=== PATIENT | female | born 1990 | race Caucasian/White ===

== ENCOUNTER 2022-06-06 09:40 | Inpatient (IN) | payer MEDICAID ==
[~2022-06-06] VITALS: Ht 167.7 cm; Wt 85.1 kg
[~2022-06-06 09:40] MED LIST: HYDR-91 PO; IBP800T PO; LEVO125T6 PO; LVT.1T PO; PREN1TAB14 PO
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
[2022-06-06] MEDS ORDERED: ONDANSETRON 4 MG (ZOFRAN) ORAL DISSOLVE TAB PO PRN (12:30)
[2022-06-06] MEDS ORDERED: BISACODYL 10 MG SUPP (DULCOLAX) PR PRN (12:30)
[2022-06-06] MEDS ORDERED: ENOXAPARIN 40 MG/0.4 ML (LOVENOX) SYR SC SCH (12:30)
[2022-06-06] MEDS ORDERED: CALCIUM CARBONATE 500 MG (TUMS) TAB.CHEW PO PRN (12:30)
[2022-06-06] MEDS ORDERED: guaiFENesin/CODEINE (ROBITUSSIN AC) 10ML UDC PO PRN (12:30)
[2022-06-06] MEDS ORDERED: LOPERAMIDE 2 MG (IMODIUM) TABLET PO PRN (12:30)
[2022-06-06] MEDS ORDERED: MELATONIN 3 MG TABLET PO PRN (12:30)
[2022-06-06] MEDS ORDERED: FLEET ENEMA ADULT 1 EA BTL PR PRN (12:30)
[2022-06-06] MEDS ORDERED: DOCUSATE SODIUM 100 MG (COLACE) CAP PO PRN (12:30)
[2022-06-06] MEDS ORDERED: TRAM50TA3 PO (13:36)
[2022-06-06] MEDS ORDERED: DICL75TA2 PO (13:36)
[2022-06-06] MEDS ORDERED: ACHD5005 PO (13:36)
[2022-06-06] MEDS ORDERED: APIX2.5T PO (13:36)
[2022-06-06] MEDS ORDERED: LEVO137T2 PO (13:36)
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
--- OUTSIDE RECORDS SUMMARY | 2022-06-06 16:03 | XMS REPORT ---
Author Author Alicia Oneill [facility] Address [address] [place], [place] [id number] Care Team Providers Care Inspection Machine Tender Name Role Phone Nimco Oneill PCP Nimco Oneill PreferredProvider Allergies and Adverse Reactions Name Reaction Notes morphine Vicodin Shell Fish (shrimp, crayfish, lobster, crab) Plan of Treatment Planned Activity Comments Planned Date Planned Time Plan/Goal Hepatitis C and hypothyroid 01/12/2021 12:45 PM TSH 01/28/2019 12:00 AM EKG. 06/22/2020 12:00 AM EKG. 06/29/2020 12:00 AM TSH 10/03/2021 12:00 AM Lumbar Spine 2 or 3 View - Clinic 05/30/2022 12:00 A M Fertility consult, has been attempting for more than 1yr . Medications Active Name Start Date Estimated Completion Date SIG Co mments Sprintec (28) 0.25-35 mg-mcg oral tablet 2021 07/04/19 23 take 1 tablet by oral route once daily for 84 days tramadol oral tablet 50 mg 05/02/2022 take 1 tablet (50 mg) by oral route every 6 hours as needed hydrocodone-acetaminophen oral tablet 5-325 mg 05/03/2022 take 1 tablet by oral route every 6 hours as needed for pain levothyroxine 137 mcg capsule 05/18/2022 07/17/2022 ta ke 1 capsule (137 mcg) by oral route once daily for 30 days diclofenac sodium oral tablet,delayed release (DR/EC) 75 mg 05/30 take 1 tablet (75 mg) by oral route 2 times per day Name Start Date Expiration Date SIG Comments valacyclovir 1 gram oral tablet 07/14/2014 07/21/2014 take 1 tablet (1,000 mg) by oral route 3 times per day for 7 days prednisone 10 mg oral tablet 07/14/2014 07/20/2014 connie e 60mg x1 more day, then 50mg x1 day, then 40mg x1 day, then 30mg x1 day, then 20mg x1 day, then 10mg x1 day Chantix Continuing Month Box 1 mg oral tablet 05/23/201608/21/2016 take 1 tablet (1 mg) with a glass of water by oral route 2 times per day after meals for 30 days estradiol 1 mg oral tablet 07/14/2016 07/24/2016 take 1 tablet (1 mg) by oral route once daily for 10 days Valium 5 mg oral tablet 09/18/2016 take 1 t ablet (5 mg) by oral route 2 times per day Bactrim DS 800-160 mg oral tablet 03/02/2017 take 1 tablet by oral route every 12 hours for 10 days Augmentin 875-125 mg oral tablet 03/06/2017 take 1 tablet by oral route every 12 hours for 7 days hydroxyzine pamoate 25 mg oral capsule 03/06/2017 take 1 capsule (25 mg) po at HS phentermine 37.5 mg oral tablet 03/14/2017 04/13/2017 take 1 tablet (37.5 mg) by oral route once daily before breakfast for 30 days Sprintec (28) 0.25-35 mg-mcg oral tablet 05/02/2017 TAKE 1 TABLET BY ORAL ROUTE ONCE DAILY FOR 28 DAYS azithromycin 250 mg oral tablet 12/03/2017 12/08/2017 take 2 tablets (500 mg) by oral route once daily for 1 day then 1 tablet (250 mg) by oral route once daily for 4 days levothyroxine 125 mcg oral tablet 01/28/2019 04/28/2019 take 1 tablet by oral route daily for 30 days cephalexin 500 mg oral capsule 04/09/2019 04/29/2019 t haydee 1 capsule (500 mg) by oral route every 12 hours for 10 days hydrocodone-acetaminophen 5-325 mg oral tablet 07/29/2019 take 1 tablet by oral route every 6 hours as needed for pain amoxicillin 500 mg oral capsule 09/03/2019 09/13/2019 take 1 capsule (500 mg) by oral route every 12 hours for 10 days alprazolam 0.25 mg oral tablet 12/08/2019 t haydee 1 tablet by oral route daily as needed Keflex 500 mg oral capsule 12/11/2019 12/18/2019 take 1 capsule (500 mg) by oral route every 6 hours for 7 days paroxetine HCl 40 mg oral tablet 12/19/2019 03/18/2020 take 1 tablet (40 mg) by oral route once daily for 30 days Zithromax Z-Madhav 250 mg oral tablet 04/16/2020 04/21/2020 Take 2 tablets the first day (500 mg) followed by 1 tablet (250 mg) days 2-5. for 5 days Medrol (Madhav) 4 mg oral tablets,dose pack 04/16/2020 04/22/20 take by oral route as directed per package instructions for 6 days tramadol 50 mg oral tablet 06/01/2020 take 1 tablet (50 mg) by oral route every 6 hours as needed Imitrex 50 mg oral tablet 06/07/2020 take 1 tablet (50 mg) by oral route after onset of migraine; may repeat after 2 hours if headache returns, not to exceed 200mg in 24hrs propranolol 20 mg oral tablet 06/07/2020 ta ke 1 tablet by oral route 2 times a day SUMATRIPTAN 50MG TABLETS 06/28/2020 07/25/2020 TAKE 1 TABLET(50 MG) BY MOUTH AT ONSET OF MIGRAINE. MAY REPEAT AFTER 2 HOURS IF HEADACHE RETURNS. NOT TO EXCEED 200 MG IN 24 HOURS LEVOTHYROXINE 0.150MG (150MCG) TAB 12/27/2020 03/27/2021 TAKE 1 TABLET(150 MCG) BY MOUTH EVERY DAY levothyroxine 150 mcg oral capsule 03/03/2021 06/01/2021 take 1 capsule (150 mcg) by oral route once daily for 30 days acyclovir 400 mg oral tablet 05/02/2021 06/01/2021 connie e 1 tablet (400 mg) by oral route 2 times per day for 15 days cephalexin 500 mg oral capsule 05/04/2021 05/09/2021 t haydee 1 capsule by oral route 2 times a day for 5 days Provera 10 mg oral tablet 06/21/2021 06/26/2021 take 1 tablet (10 mg) by oral route once daily for 5 days LEVOTHYROXINE 0.150MG (150MCG) TAB 11/17/2021 02/15/2022 TAKE 1 TABLET(150 MCG) BY MOUTH EVERY DAY Saxenda subcutaneous pen injector 3 mg/0.5 mL (18 mg/3 mL) 202101/12/2022 inject 0.6 mg by subcutaneous route once daily in the abdomen, thigh, or upper arm for 1 week cyclobenzaprine 5 mg tablet 01/06/2022 01/11/2022 take 1 tablet by oral route 2 times a day for 5 days phentermine oral tablet 37.5 mg 02/13/2022 03/15/2022 take 1 tablet (37.5 mg) by oral route once daily before breakfast for 30 days Discontinued Name Start Date Discontinued Date SIG Comments levothyroxine 125 mcg oral tablet 07/11/2014 take 1 tablet (125 mcg) by oral route once daily prednisone 20 mg oral tablet 11/11/2013 07/11/2014 connie e 1 tablet by mouth daily x5 days oral 03/17/2015 Zithromax 1 gram oral packet 12/02/2013 07/11/2014 connie e 1 packet (1,000 mg) by oral route dissolved in 2 ounces of water as a single dose levothyroxine 50 mcg oral tablet 07/20/2014 08/14/2014 take 1 tablet (50 mcg) by oral route once daily for 30 days risperidone oral 03/17/2015 Proctosol HC 2.5 % rectal cream 09/23/2015 05/23/2016 apply by rectal route 2 times a day Ativan 0.5 mg oral tablet 10/25/2015 10/27/2015 take 1 tablet by oral route 2 times a day as needed alprazolam 0.5 mg oral tablet 10/27/2015 09/18/2016 ta ke 1 tablet (0.5 mg) by oral route 3 times per day Depo-Provera 150 mg/mL intramuscular suspension 017 Proctosol HC 2.5 % topical cream with perineal applicator 017 09/18/2016 apply by rectal route 2 times per day Harvoni 90-400 mg oral tablet 10/20/2016 take 1 tabl et by oral route once daily completed treatment cyclobenzaprine 10 mg oral tablet 10/17/2016 01/08/2017 take 1 tablet by oral route once a day (at bedtime) tramadol 50 mg oral tablet 10/20/2016 01/08/2017 take 1 tablet (50 mg) by oral route every 6 hours as needed levothyroxine 100 mcg oral tablet 11/13/2016 01/08/2017 TAKE 1 TABLET BY MOUTH ONCE DAILY diclofenac sodium 75 mg oral tablet,delayed release (DR/EC) 11/1301/08/2017 TAKE 1 TABLET (75 MG) BY ORAL ROUTE 2 TIMES PER DAY FOR 30 DAYS Vitamin oral tablet 08/28/2017 take 1 table t by oral route once daily amoxicillin 875 mg oral tablet 07/31/2017 08/28/2017 t haydee 1 tablet (875 mg) by oral route every 12 hours for 10 days hydrochlorothiazide 12.5 mg oral tablet 10/18/2017 8 TAKE 1 TABLET (12.5 MG) BY ORAL ROUTE ONCE DAILY diclofenac sodium 75 mg oral tablet,delayed release (DR/EC) 11/1512/03/2017 take 1 tablet (75 mg) by oral route 2 times per day for 30 days cyclobenzaprine 10 mg oral tablet 11/22/2018 01/28/2019 take 1 tablet (10 mg) by oral route 3 times per day as needed cyclobenzaprine 10 mg oral tablet 04/09/2019 07/29/2019 take 1/2- 1 tablet by oral route at HS Vitamin 27 mg iron-0.8 mg tablet 06/21/19 take 1 tablet by oral route Nicorette 4 mg gum 10/21/2020 12/16/2020 chew 1 piece of gum (4 mg) by oral route every 1-2 hours as needed and as directed. FRUIT FLAVOR ONLY Fioricet 50 mg-300 mg-40 mg capsule 12/16/2020 2021 take 1 capsule by oral route every 4 hours as needed Nicorette 4 mg buccal lozenge 03/17/2021 06/21/2021 ta ke 1 tablet (4 mg) dissolved slowly in the mouth by oral route every 4-8 hours Nicoderm CQ 21 mg/24 hr transdermal patch 24 hour 03/17/2021 06/21/2021 apply 1 patch (21 mg) by transdermal route once daily and remove at bedtime for 28 days ferrous sulfate 325 mg (65 mg iron) oral tablet 03/18/2021 06/21/2021 take 1 tablet by oral route every other day levothyroxine 25 mcg oral capsule 06/21/2021 2021 take 1 capsule (25 mcg) by oral route once daily hydrocortisone 2.5 % topical cream 06/21/2021 2021 apply a thin layer to the affected area(s) by topical route 2 times per day Ozempic 0.25 mg or 0.5 mg (2 mg/1.5 mL) subcutaneous pen inj renu 01/06/2022 01/10/2022 inject 0.25 mg by subcutaneous route once weekly for 4 weeks Wegovy 0.25 mg/0.5 mL subcutaneous pen injector 01/10/2022 01/12/2022 inject 0.25 mg by subcutaneous route once weekly on the same day of each week Problem List Description Status Onset Hypothyroidism, acquired Active 09/15/2015 Chronic hepatitis C without hepatic coma Active 05/23/2016 Vital Signs Date Time BP-Sys(mm[Hg] BP-Ursula(mm[Hg]) HR(bpm) RR(rpm) Temp WT HT HC BMI BSA BMI Percentile O2 Sat(%) 05/30/2022 10:46:00 AM 120 mm[Hg] 80 mm[Hg] 95 {beats}/min 18 rpm 97.9 F 83 kg 66 in 29.534 kg/m2 1.966 m2 98 % 05/17/2022 8:59:00 AM 132 mm[Hg] 80 mm[Hg] 99 {beats}/min 18 rpm 98.1 F 83.9146 kg 66 in 29.86 kg/m2 1.98 m2 97 % 05/02/2022 9:37:00 AM 118 mm[Hg] 86 mm[Hg] 84 {beats}/min 18 rpm 97.7 F 81.7033 kg 66 in 29.0726 kg/m2 1.9506 m2 100 % 04/22/2022 1:55:00 PM 99 {beats}/min 16 rpm 98.6 F 84.4249 kg 6 6 in 30.04 kg/m2 1.98 m2 100 % 02/13/2022 1:54:00 PM 120 mm[Hg] 86 mm[Hg] 89 {beats}/min 18 rpm 97.7 F 85.7857 kg 66 in 30.5253 kg/m2 1.9987 m2 99 % 01/10/2022 10:06:00 AM 112 mm[Hg] 70 mm[Hg] 83 {beats}/min 18 rpm 97.7 F 89.5845 kg 66 in 31.88 kg/m2 2.04 m2 99 % 01/06/2022 11:10:00 AM 120 mm[Hg] 60 mm[Hg] 81 {beats}/min 16 rpm 98.2 F 89.3577 kg 66 in 31.7963 kg/m2 2.0399 m2 100 % 01/05/2022 8:29:00 AM 110 mm[Hg] 78 mm[Hg] 85 {beats}/min 18 rpm 98.1 F 89.9814 kg 66 in 32.02 kg/m2 2.05 m2 100 % 08/24/2021 6:59:00 PM 112 mm[Hg] 78 mm[Hg] 79 {beats}/min 16 rpm 98.2 F 96.7853 kg 66 in 34.4393 kg/m2 2.123 m2 100 % 2021 1:49:00 PM 112 mm[Hg] 78 mm[Hg] 78 {beats}/min 20 rpm 97.7 F 96.6152 kg 66 in 34.38 kg/m2 2.12 m2 100 % 06/21/2021 3:43:00 PM 119 mm[Hg] 80 mm[Hg] 88 {beats}/min 98.1 F 95.2544 kg 65 in 34.9455 kg/m2 2.0901 m2 10/05/2020 10:52:00 AM 115 mm[Hg] 73 mm[Hg] 83 {beats}/min 97.9 F 98.4295 kg 64 in 37.25 kg/m2 2.11 m2 09/13/2020 2:46:00 PM 126 mm[Hg] 70 mm[Hg] 116 {beats}/min 16 rpm 98.1 F 97.0688 kg 66 in 34.5401 kg/m2 2.1261 m2 100 % 06/22/2020 1:44:00 PM 122 mm[Hg] 72 mm[Hg] 69 {beats}/min 18 rpm 98.2 F 95.708 kg 66 in 34.06 kg/m2 2.11 m2 97 % 06/01/2020 10:17:00 AM 122 mm[Hg] 76 mm[Hg] 92 {beats}/min 18 rpm 97.9 F 97.0688 kg 66 in 34.5401 kg/m2 2.1261 m2 98 % 05/28/2020 9:19:00 AM 138 mm[Hg] 72 mm[Hg] 105 {beats}/min 18 rpm 98.2 F 97.0688 kg 66 in 34.54 kg/m2 2.13 m2 96 % 04/16/2020 6:07:00 PM 118 mm[Hg] 78 mm[Hg] 97 {beats}/min 18 rpm 99 F 94.0637 kg 66 in 33.4709 kg/m2 2.0929 m2 99 % 04/13/2020 3:27:00 PM 89 {beats}/min 20 rpm 99 % 12/31/2019 3:50:00 PM 137 mm[Hg] 93 mm[Hg] 91 {beats}/min 98.2 F 98.8831 kg 66 in 35.19 kg/m2 2.1459 m2 12/23/2019 8:46:00 AM 100 {beats}/min 16 rpm 98.6 F 98.4295 kg 6 6 in 35.0244 kg/m2 2.14 m2 100 % 12/11/2019 9:32:00 AM 128 mm[Hg] 70 mm[Hg] 112 {beats}/min 16 rpm 98.7 F 98.4295 kg 66 in 35.02 kg/m2 2.1409 m2 99 % 11/17/2019 3:26:00 PM 117 {beats}/min 18 rpm 97.9 F 98.8831 kg 66 in 35.1858 kg/m2 2.15 m2 98 % 07/29/2019 5:22:00 PM 130 mm[Hg] 72 mm[Hg] 89 {beats}/min 18 rpm 98.2 F 97.6358 kg 66 in 34.74 kg/m2 2.1323 m2 100 % 04/09/2019 11:37:00 AM 132 mm[Hg] 90 mm[Hg] 81 {beats}/min 16 rpm 97.9 F 95.3678 kg 66 in 33.9349 kg/m2 2.11 m2 100 % 01/28/2019 8:28:00 AM 112 mm[Hg] 72 mm[Hg] 79 {beats}/min 13 rpm 98.2 F 94.2565 kg 66 in 33.54 kg/m2 2.095 m2 100 % 11/22/2018 6:41:00 PM 119 mm[Hg] 78 mm[Hg] 76 {beats}/min 98.1 F 92.0793 kg 66 in 32.7647 kg/m2 2.07 m2 98 % 02/27/2018 3:25:00 PM 122 mm[Hg] 72 mm[Hg] 93 {beats}/min 18 rpm 98.4 F 90.2649 kg 66 in 32.12 kg/m2 2.0502 m2 98 % 02/23/2018 11:07:00 AM 115 mm[Hg] 79 mm[Hg] 74 {beats}/min 18 rpm 98.4 F 90.3216 kg 66 in 32.14 kg/m2 2.05 m2 100 % 12/20/2017 8:41:00 AM 120 mm[Hg] 71 mm[Hg] 93 {beats}/min 16 rpm 98.4 F 87.5433 kg 66 in 31.1507 kg/m2 2.0191 m2 100 % 12/03/2017 7:15:00 PM 115 mm[Hg] 81 mm[Hg] 108 {beats}/min 18 rpm 98.8 F 85.8991 kg 66 in 30.57 kg/m2 2.00 m2 100 % 11/15/2017 6:25:00 PM 128 mm[Hg] 78 mm[Hg] 96 {beats}/min 16 rpm 99 F 85.7857 kg 66 in 30.5253 kg/m2 1.9987 m2 100 % 10/24/2017 10:29:00 AM 120 mm[Hg] 80 mm[Hg] 78 {beats}/min 20 rpm 97.8 F 83.5744 kg 66 in 29.74 kg/m2 1.97 m2 100 % 09/24/2017 10:16:00 AM 128 mm[Hg] 70 mm[Hg] 92 {beats}/min 18 rpm 98.8 F 84.1414 kg 66 in 29.9402 kg/m2 1.9794 m2 99 % 08/30/2017 2:02:00 PM 119 mm[Hg] 68 mm[Hg] 88 {beats}/min 18 rpm 98.8 F 87.0897 kg 66 in 30.99 kg/m2 2.01 m2 100 % 08/28/2017 6:07:00 PM 130 mm[Hg] 60 mm[Hg] 85 {beats}/min 98.8 F 88 .1103 kg 100 % 08/28/2017 6:07:00 PM 130 mm[Hg] 60 mm[Hg] 85 {beats}/min 98.8 F 88 .1103 kg 100 % 07/31/2017 5:51:00 PM 124 mm[Hg] 84 mm[Hg] 82 {beats}/min 18 rpm 97.7 F 87.9969 kg 67 in 30.3844 kg/m2 2.0396 m2 98 % 06/27/2017 5:51:00 PM 120 mm[Hg] 84 mm[Hg] 68 {beats}/min 18 rpm 99.8 F 85.729 kg 66 in 30.51 kg/m2 2.00 m2 100 % 05/22/2017 9:54:00 AM 121 mm[Hg] 70 mm[Hg] 105 {beats}/min 16 rpm 98.2 F 86.1826 kg 66 in 30.6665 kg/m2 2.0033 m2 100 % 03/13/2017 8:05:00 AM 116 mm[Hg] 68 mm[Hg] 101 {beats}/min 18 rpm 98 F 82.5538 kg 66 in 29.38 kg/m2 1.96 m2 99 % 03/06/2017 6:46:00 PM 124 mm[Hg] 82 mm[Hg] 96 {beats}/min 18 rpm 98.9 F 83.0074 kg 66 in 29.5367 kg/m2 1.9661 m2 98 % 03/02/2017 6:08:00 PM 118 mm[Hg] 74 mm[Hg] 85 {beats}/min 18 rpm 99.8 F 83.461 kg 66 in 29.70 kg/m2 1.97 m2 98 % 02/15/2017 8:50:00 AM 118 mm[Hg] 71 mm[Hg] 110 {beats}/min 18 rpm 98.9 F 85.8991 kg 66 in 30.5656 kg/m2 2 m2 99 % 01/08/2017 2:21:00 PM 142 mm[Hg] 80 mm[Hg] 84 {beats}/min 18 rpm 98.7 F 85.3321 kg 66 in 30.36 kg/m2 1.99 m2 99 % 10/20/2016 6:48:00 PM 118 mm[Hg] 82 mm[Hg] 92 {beats}/min 18 rpm 99.7 F 81.6466 kg 66 in 29.0525 kg/m2 1.9499 m2 100 % 10/17/2016 8:47:00 AM 124 mm[Hg] 72 mm[Hg] 88 {beats}/min 18 rpm 99.6 F 81.4198 kg 66 in 28.97 kg/m2 1.95 m2 100 % 09/18/2016 6:13:00 PM 99 mm[Hg] 61 mm[Hg] 86 {beats}/min 20 rpm 99.5 F 8 0.5126 kg 66 in 28.649 kg/m2 1.9363 m2 100 % 07/10/2016 10:35:00 AM 128 mm[Hg] 68 mm[Hg] 100 {beats}/min 18 rpm 98.2 F 75.0128 kg 66 in 26.69 kg/m2 1.87 m2 100 % 06/09/2016 9:32:00 AM 124 mm[Hg] 62 mm[Hg] 88 {beats}/min 18 rpm 98.2 F 73.0851 kg 66 in 26.006 kg/m2 1.8448 m2 100 % 05/23/2016 2:02:00 PM 124 mm[Hg] 64 mm[Hg] 76 {beats}/min 18 rpm 97.5 F 71.781 kg 66 in 25.54 kg/m2 1.83 m2 100 % 10/25/2015 12:27:00 PM 116 mm[Hg] 70 mm[Hg] 81 {beats}/min 16 rpm 98.2 F 64.4101 kg 66 in 22.9192 kg/m2 1.7319 m2 100 % 09/15/2015 1:21:00 PM 100 mm[Hg] 64 mm[Hg] 87 {beats}/min 14 rpm 99.3 F 64.9771 kg 66 in 23.12 kg/m2 1.74 m2 100 % 03/17/2015 1:38:00 PM 122 mm[Hg] 64 mm[Hg] 94 {beats}/min 18 rpm 97.8 F 60.3845 kg 66 in 21.4867 kg/m2 1.6769 m2 100 % 08/14/2014 10:22:00 AM 126 mm[Hg] 70 mm[Hg] 85 {beats}/min 18 rpm 97.2 F 65.4874 kg 66 in 23.30 kg/m2 1.75 m2 98 % 07/21/2014 9:47:00 AM 114 mm[Hg] 60 mm[Hg] 63 {beats}/min 18 rpm 97.8 F 66.4513 kg 66 in 23.6455 kg/m2 1.7591 m2 100 % 07/17/2014 10:12:00 AM 124 mm[Hg] 64 mm[Hg] 59 {beats}/min 18 rpm 96.6 F 66.7915 kg 66 in 23.77 kg/m2 1.76 m2 100 % 07/14/2014 3:15:00 PM 118 mm[Hg] 64 mm[Hg] 81 {beats}/min 18 rpm 98.5 F 66.7348 kg 66 in 23.7464 kg/m2 1.7628 m2 100 % 07/11/2014 9:29:00 AM 124 mm[Hg] 74 mm[Hg] 75 {beats}/min 18 rpm 97.9 F 67.1317 kg 66 in 23.89 kg/m2 1.77 m2 100 % 11/27/2013 3:39:00 PM 122 mm[Hg] 64 mm[Hg] 81 {beats}/min 18 rpm 98.8 F 63.7297 kg 66 in 22.6771 kg/m2 1.7227 m2 100 % 11/11/2013 10:25:00 AM 122 mm[Hg] 62 mm[Hg] 76 {beats}/min 18 rpm 98.9 F 67.727 kg 66 in 24.10 kg/m2 1.78 m2 99 % Social History Name Description Comments Vapor Cigarettes Never denies alcohol use 06/27/2017 - Tobacco Current some day smoker 07/29/2019 - [facility] lives with children History of Procedures Date Ordered Description Order Status 03/17/2015 12:00 AM SPECIMEN HANDLING OFFICE-LAB Reviewed 03/17/2015 12:00 AM CYTOPATH C/V MANUAL Reviewed 03/17/2015 12:00 AM CHYLMD TRACH DNA AMP PROBE Reviewed 03/17/2015 12:00 AM N.GONORRHOEAE DNA AMP PROB Reviewed 03/17/2015 12:00 AM ASSAY THYROID STIM HORMONE Reviewed 03/17/2015 12:00 AM HEPATITIS C REVRS TRNSCRPJ Reviewed 03/17/2015 12:00 AM COMPREHEN METABOLIC PANEL Reviewed 03/17/2015 12:00 AM CULTURE SCREEN ONLY Reviewed 05/31/2015 12:00 AM ASSAY THYROID STIM HORMONE Reviewed 09/15/2015 12:00 AM COMPLETE CBC W/AUTO DIFF WBC Reviewed 09/15/2015 12:00 AM COMPREHEN METABOLIC PANEL Reviewed 09/15/2015 12:00 AM ASSAY THYROID STIM HORMONE Reviewed 10/25/2015 12:00 AM COMPLETE CBC W/AUTO DIFF WBC Reviewed 10/25/2015 12:00 AM COMPREHEN METABOLIC PANEL Reviewed 10/25/2015 12:00 AM FIBRIN DEGRADE SEMIQUANT Reviewed 10/25/2015 12:00 AM ASSAY OF AMYLASE Reviewed 10/25/2015 12:00 AM ASSAY OF LIPASE Reviewed 10/25/2015 12:00 AM ASSAY OF NATRIURETIC PEPTIDE Reviewed 05/23/2016 12:00 AM COMPREHEN METABOLIC PANEL Reviewed 05/23/2016 12:00 AM ASSAY THYROID STIM HORMONE Reviewed 05/25/2016 12:00 AM Consult/Referral Reviewed 06/26/2016 12:00 AM Depo Provera Injection, 150 mg Reviewed 07/10/2016 12:00 AM DETECT AGENT NOS DNA QUANT Reviewed 07/10/2016 12:00 AM FUNGUS ISOLATION CULTURE Reviewed 07/10/2016 12:00 AM CHYLMD TRACH DNA AMP PROBE Reviewed 07/10/2016 12:00 AM CULTURE SCREEN ONLY Reviewed 09/11/2016 12:00 AM THER/PROPH/DIAG INJ SC/IM Reviewed 09/11/2016 12:00 AM Depo Provera Injection, 150 mg Reviewed 10/17/2016 12:00 AM ASSAY THYROID STIM HORMONE Reviewed 10/20/2016 12:00 AM X-RAY EXAM OF SHOULDER Returned 12/11/2016 12:00 AM ASSAY THYROID STIM HORMONE Reviewed 01/08/2017 2:47 PM URINE TEST Reviewed 02/15/2017 12:00 AM ASSAY THYROID STIM HORMONE Reviewed 03/13/2017 12:00 AM COMPLETE CBC W/AUTO DIFF WBC Reviewed 03/13/2017 12:00 AM COMPREHEN METABOLIC PANEL Reviewed 03/13/2017 12:00 AM C-REACTIVE PROTEIN Reviewed 03/13/2017 12:00 AM RBC SED RATE AUTOMATED Reviewed 03/13/2017 12:00 AM HETEROPHILE ANTIBODY SCREEN Reviewed 03/06/2017 12:00 AM STREP A ASSAY W/OPTIC Reviewed 03/06/2017 12:00 AM CULTURE OTHR SPECIMN AEROBIC Reviewed 05/22/2017 10:36 AM URINE TEST Reviewed 05/22/2017 12:00 AM SPECIMEN HANDLING OFFICE-LAB Reviewed 05/22/2017 12:00 AM CYTOPATH C/V THIN LAYER Reviewed 05/22/2017 12:00 AM ASSAY THYROID STIM HORMONE Reviewed 05/22/2017 12:00 AM LIPID PANEL Reviewed 05/22/2017 12:00 AM US BREAST UNI REAL TIME WITH IMAGE COMPL ETE Reviewed 05/22/2017 12:00 AM US BREAST UNI REAL TIME WITH IMAGE COMPL ETE Reviewed 06/27/2017 6:15 PM URINE TEST Reviewed 06/27/2017 12:00 AM COMPLETE CBC W/AUTO DIFF WBC Reviewed 06/27/2017 12:00 AM METABOLIC PANEL TOTAL CA Reviewed 06/27/2017 12:00 AM CHORIONIC GONADOTROPIN TEST Returned 08/30/2017 12:00 AM FIBRIN DEGRADE SEMIQUANT Reviewed 09/24/2017 11:39 AM URINE TEST Reviewed 10/24/2017 12:00 AM Drug Screen Collection Reviewed 12/20/2017 12:00 AM TDAP VACCINE 7 YRS/> IM Reviewed 12/20/2017 12:00 AM IMMUNIZATION ADMIN Reviewed 12/20/2017 12:00 AM IMMUNIZATION ADMIN EACH ADD Reviewed 11/15/2017 12:00 AM THER/PROPH/DIAG INJ SC/IM Reviewed 11/15/2017 12:00 AM Depo-Medrol 40mg Injection Reviewed 11/15/2017 12:00 AM Decadron 4mg Injection Reviewed 01/22/2018 12:00 AM ASSAY THYROID STIM HORMONE Reviewed 01/22/2018 12:00 AM ASSAY THYROID STIM HORMONE Reviewed 02/23/2018 12:00 AM X-RAY EXAM OF FOOT Reviewed 02/27/2018 12:00 AM RADEX FOOT COMPLETE MINIMUM 3 VIEWS Revi ewed 11/22/2018 12:00 AM X-RAY EXAM OF SHOULDER Reviewed 01/28/2019 12:00 AM COMPREHEN METABOLIC PANEL Reviewed 01/28/2019 12:00 AM ASSAY THYROID STIM HORMONE Reviewed 07/29/2019 5:38 PM URINALYSIS AUTO W/O SCOPE Reviewed 07/29/2019 12:00 AM X-RAY EXAM SERIES ABDOMEN Reviewed 10/03/2019 12:00 AM ASSAY THYROID STIM HORMONE Returned 11/17/2019 12:00 AM ASSAY OF PROLACTIN Reviewed 11/17/2019 12:00 AM ROUTINE VENIPUNCTURE Reviewed 11/27/2019 12:00 AM BREAST TOMOSYNTHESIS BI Returned 12/23/2019 12:00 AM ASSAY THYROID STIM HORMONE Returned 12/23/2019 12:00 AM ANTINUCLEAR ANTIBODIES MARTITA Returned 12/23/2019 12:00 AM C-REACTIVE PROTEIN Returned 01/01/2020 12:00 AM Left breast ultrasound Reviewed 01/01/2020 12:00 AM US BREAST UNI REAL TIME WITH IMAGE COMPL ETE Reviewed 01/15/2020 12:00 AM Breast ultrasound Reviewed 04/13/2020 12:00 AM COVID-19 Testing Returned 05/28/2020 12:[address] ANGIOGRAPHY HEAD Returned 06/01/2020 12:00 AM MRI BRAIN STEM W/O & W/DYE Returned 06/22/2020 12:00 AM ASSAY THYROID STIM HORMONE Returned 06/22/2020 12:00 AM COMPLETE CBC W/AUTO DIFF WBC Returned 09/13/2020 12:00 AM ASSAY THYROID STIM HORMONE Returned 10/05/2020 11:26 AM URINE TEST Reviewed 10/05/2020 12:00 AM CYTOPATH C/V THIN LAYER Reviewed 10/05/2020 12:00 AM SPECIMEN HANDLING OFFICE-LAB Reviewed 10/05/2020 12:00 AM N.GONORRHOEAE DNA AMP PROB Reviewed 10/05/2020 12:00 AM CHLAMYDIA CULTURE Reviewed 10/05/2020 12:00 AM HIV-1ANTIBODY Reviewed 10/05/2020 12:00 AM URINALYSIS AUTO W/SCOPE Reviewed 10/05/2020 12:00 AM OBSTETRIC PANEL Reviewed 10/05/2020 12:00 AM ASSAY OF FERRITIN Reviewed 10/05/2020 12:00 AM URINE DRUG SCREEN RAPID Reviewed 10/05/2020 12:00 AM VARICELLA-ZOSTER ANTIBODY Reviewed 10/05/2020 12:00 AM ASSAY THYROID STIM HORMONE Reviewed 10/05/2020 12:00 AM GLUCOSE TEST Reviewed 10/05/2020 12:00 AM DETECT AGENT NOS DNA AMP Reviewed 10/05/2020 12:00 AM TRICHOMONAS VAGINALIS AMPLIF Reviewed 10/05/2020 12:00 AM HEPATITIS C AB TEST Reviewed 10/05/2020 12:00 AM HERPES SIMPLEX TYPE 1 TEST Reviewed 10/05/2020 12:00 AM HERPES SIMPLEX TYPE 2 TEST Reviewed 10/05/2020 12:00 AM ASSAY OF FREE THYROXINE Reviewed 10/21/2020 12:00 AM HEPATITIS C PROBE&RVRS TRNSC Reviewed 10/21/2020 12:00 AM HEPATITIS C REVRS TRNSCRPJ Reviewed 10/21/2020 12:00 AM HEPATIC FUNCTION PANEL Reviewed 10/21/2020 12:00 AM OB US < 14 WKS SINGLE FETUS Reviewed 10/21/2020 12:00 AM TRANSVAGINAL US OBSTETRIC Reviewed 11/18/2020 12:00 AM [facility] Genetic Testing Reviewed 12/16/2020 12:00 AM ASSAY THYROID STIM HORMONE Reviewed 12/16/2020 12:00 AM ASSAY OF FREE THYROXINE Reviewed 12/16/2020 12:00 AM HEPATIC FUNCTION PANEL Reviewed 12/16/2020 12:00 AM HEPATITIS C PROBE&RVRS TRNSC Reviewed 12/16/2020 12:00 AM ALPHA-FETOPROTEIN SERUM Reviewed 12/16/2020 12:00 AM Consult/Referral Reviewed 01/14/2021 12:00 AM ASSAY THYROID STIM HORMONE Reviewed 02/09/2021 12:00 AM OB US LIMITED FETUS(S) Reviewed 02/09/2021 12:00 AM TRANSVAGINAL US OBSTETRIC Reviewed 02/09/2021 12:00 AM OB US FOLLOW-UP PER FETUS Reviewed 02/11/2021 12:00 AM ASSAY THYROID STIM HORMONE Reviewed 02/11/2021 12:00 AM IM ADM PRQ ID SUBQ/IM NJXS 1 VACCINE Rev iewed 02/11/2021 12:00 AM INFLUENZA VAC 4 VALENT PRSRV FREE 3 YRS PLUS IM Reviewed 03/11/2021 12:00 AM Type and screen Reviewed 03/11/2021 12:00 AM GLUCOSE TOLERANCE TEST (GTT) Reviewed 03/11/2021 12:00 AM COMPLETE CBC W/AUTO DIFF WBC Reviewed 03/11/2021 12:00 AM ASSAY OF FERRITIN Reviewed 03/11/2021 12:00 AM SYPHILIS TEST NON-TREPONEMAL ANTIBODY QU AL Reviewed 03/11/2021 12:00 AM COMPREHEN METABOLIC PANEL Reviewed 03/11/2021 12:00 AM HEPATITIS C PROBE&RVRS TRNSC Reviewed 03/11/2021 12:00 AM ASSAY THYROID STIM HORMONE Reviewed 03/11/2021 12:00 AM ASSAY OF FREE THYROXINE Reviewed 03/11/2021 12:00 AM HEPATIC FUNCTION PANEL Reviewed 03/18/2021 12:00 AM GLUCOSE TOLERANCE TEST (GTT) Reviewed 03/28/2021 12:00 AM TDAP VACCINE 7 YRS/> IM Reviewed 03/28/2021 12:00 AM IM ADM PRQ ID SUBQ/IM NJXS 1 VACCINE Rev iewed 05/02/2021 12:00 AM CULTURE SCREEN ONLY Reviewed 05/04/2021 12:00 AM OB US LIMITED FETUS(S) Reviewed 05/04/2021 12:00 AM TRANSVAGINAL US OBSTETRIC Reviewed 05/04/2021 12:00 AM OB US FOLLOW-UP PER FETUS Reviewed 06/21/2021 12:00 AM CYTOPATH C/V THIN LAYER Reviewed 06/21/2021 12:00 AM SPECIMEN HANDLING OFFICE-LAB Reviewed 2021 12:00 AM GLYCOSYLATED HEMOGLOBIN TEST Returned 2021 12:00 AM ASSAY THYROID STIM HORMONE Returned 08/24/2021 12:00 AM X-RAY EXAM OF FOOT Returned 01/05/2022 12:00 AM ASSAY THYROID STIM HORMONE Returned 01/10/2022 12:00 AM X-RAY EXAM RIBS UNI 2 VIEWS Returned 04/22/2022 12:00 AM Decadron 8mg Injection Reviewed 04/22/2022 12:00 AM Depo-Medrol 80mg Injection Reviewed 04/22/2022 12:00 AM THER/PROPH/DIAG INJ SC/IM Reviewed 05/02/2022 12:00 AM X-RAY EXAM SACRUM TAILBONE Returned 05/02/2022 12:00 AM RADEX SPINE LUMBOSACRAL 2/3 VIEWS Return ed 05/02/2022 12:00 AM Toradol 60 Mg Injection Reviewed 05/17/2022 12:00 AM COMPLETE CBC W/AUTO DIFF WBC Returned 05/17/2022 12:00 AM ASSAY THYROID STIM HORMONE Returned 05/17/2022 12:00 AM ANTINUCLEAR ANTIBODIES MARTITA Returned 05/17/2022 12:00 AM C-REACTIVE PROTEIN Returned 05/17/2022 12:00 AM RBC SED RATE AUTOMATED Returned 05/17/2022 12:00 AM ALLERGEN SPECIFIC IGE Returned 11/11/2013 12:00 AM IRON BINDING TEST Reviewed 11/11/2013 12:00 AM HEPATITIS C REVRS [id number] Reviewed 11/27/2013 12:00 AM CYTOPATH C/V MANUAL Reviewed 11/27/2013 12:00 AM CHYLMD TRACH DNA AMP PROBE Reviewed 11/27/2013 12:00 AM N.GONORRHOEAE DNA AMP PROB Reviewed 11/27/2013 12:00 AM THER/PROPH/DIAG INJ SC/IM Reviewed 11/27/2013 12:00 AM IMMUNIZATION ADMIN Reviewed 11/27/2013 12:00 AM IMMUNIZATION ADMIN Reviewed 11/27/2013 12:00 AM HEP B VAC INJXN ADMIN/RECVD Reviewed 11/27/2013 12:00 AM HEP B VAC SERIES PREV RECVD Reviewed 11/27/2013 12:00 AM IMMUNIZATION ADMIN EACH ADD Reviewed 11/27/2013 12:00 AM HEP B VACC ADULT 2 DOSE IM Reviewed 11/27/2013 12:00 AM HEPB VACC ILL PAT 3 DOSE IM Reviewed 11/27/2013 12:00 AM HEP B VACC ADOL 2 DOSE IM Reviewed 11/27/2013 12:00 AM HEPB VACC PED/ADOL 3 DOSE IM Reviewed 11/27/2013 12:00 AM HEP B VACC ADULT 3 DOSE IM Reviewed 11/27/2013 12:00 AM HEPB VACC ILL PAT 4 DOSE IM Reviewed 11/27/2013 12:00 AM Vaccine for hepatitis B Reviewed 11/27/2013 12:00 AM HPV VACCINE 4 VALENT IM Reviewed 12/23/2013 12:00 AM ACUTE HEPATITIS PANEL Reviewed 12/23/2013 12:00 AM COMPLETE CBC AUTOMATED Reviewed 12/23/2013 12:00 AM HEPATIC FUNCTION PANEL Reviewed 07/17/2014 12:00 AM ASSAY THYROID STIM HORMONE Reviewed 07/21/2014 12:00 AM COMPLETE CBC W/AUTO DIFF WBC Reviewed 07/21/2014 12:00 AM COMPREHEN METABOLIC PANEL Reviewed 07/21/2014 12:[address] HEAD/BRAIN W/O & W/DYE Reviewed 09/24/2014 12:00 AM ASSAY THYROID STIM HORMONE Reviewed Results Summary Date and Description Results 11/11/2013 11:40 AM IRON TOTAL 51.0 ug/dLTransfe rrin 289.0 mg/dLTIBC Calculation 361 %Saturation Calc 14 Hepatitis C Quantitation [id number] HCV log10 5.504 01/01/2014 4:15 PM WBC 6.0 RBC 4.30 HGB 13.40 g /dLHCT 39.80 %MCV 93.0 fLMCH 31.20 pgMCHC 33.70 g/dLRDW SD 44 RDW CV 13.10 %MPV 11.10 fLPLT 263 NRBC# 0.00 NRBC% 0.0 SGOT/AST 37.0 IU/LALK PHOS 50.0 IU/LTOTAL PROTEIN 8.0 g/dLALBUMIN 4.20 g/dLTOTAL BILI 0.30 mg/dLDIRECT BILI 0.20 mg/dLINDIRECT BILI 0.10 mg/dLSGOT/AST 37.0 IU/LSGPT/ALT 47.0 IU/LALK PHOS 50.0 IU/LTOTAL PROTEIN 8.0 g/dLALBUMIN 4.20 g/dLTOTAL BILI 0.30 mg/dLDIRECT BILI 0.20 mg/dLINDIRECT BILI 0.10 mg/dL 07/17/2014 10:36 AM TSH 221.370 uIU/mL 07/21/2014 10:24 AM GLUCOSE 86.0 mg/dLSODIUM 137 .0 mmol/LPOTASSIUM 3.60 mmol/LCHLORIDE 102.0 mmol/LCO2 23.0 mmol/LBUN 11.0 mg/dLCREATININE 1.10 mg/dLSGOT/AST 29.0 IU/LSGPT/ALT 39.0 IU/LALK PHOS 37.0 IU/LTOTAL PROTEIN 8.60 g/dLALBUMIN 4.50 g/dLTOTAL BILI 0.60 mg/dLCALCIUM 9.60 mg/dLAGE 23 GFR NonAA 61 GFR AA 74 eGFR >60 mL/min/1.73 m2eGFR AA* >60 WBC 7.7 RBC 4.19 HGB 13.90 g/dLHCT 41.40 %MCV 99.0 fLMCH 33.20 pgMCHC 33.60 g/dLRDW SD 51 RDW CV 14.40 %MPV 10.0 fLPLT 247 NRBC# 0.00 NRBC% 0.0 %NEUT 52.30 %%LYMP 36.20 %%MONO 8.20 %%EOS 2.60 %%BASO 0.70 %#NEUT 4.00 #LYMP 2.77 #MONO 0.63 #EOS 0.20 #BASO 0.05 MANUAL DIFF NOT IND 10/01/2014 12:29 PM TSH 0.890 uIU/mL 03/17/2015 2:35 PM GLUCOSE 70.0 mg/dLSODIUM 142 .0 mmol/LPOTASSIUM 3.70 mmol/LCHLORIDE 107.0 mmol/LCO2 24.0 mmol/LBUN 10.0 mg/dLCREATININE 0.70 mg/dLSGOT/AST 26.0 IU/LSGPT/ALT 36.0 IU/LALK PHOS 60.0 IU/LTOTAL PROTEIN 7.50 g/dLALBUMIN 4.0 g/dLTOTAL BILI 0.20 mg/dLCALCIUM 9.40 mg/dLAGE 24 GFR NonAA 102 GFR AA 124 eGFR >60 mL/min/1.73 m2eGFR AA* >60 TSH 1.190 uIU/mL 03/19/2015 12:20 PM Hepatitis C Quantitation [id number] HCV log10 5.593 06/01/2015 4:30 PM TSH 1.390 uIU/mL 09/15/2015 2:15 PM WBC 7.0 RBC 4.92 HGB 14.70 g /dLHCT 44.40 %MCV 90.0 fLMCH 29.90 pgMCHC 33.10 g/dLRDW SD 41 RDW CV 12.30 %MPV 10.60 fLPLT 235 NRBC# 0.00 NRBC% 0.0 %NEUT 58.60 %%LYMP 29.0 %%MONO 6.60 %%EOS 5.10 %%BASO 0.40 %#NEUT 4.10 #LYMP 2.03 #MONO 0.46 #EOS 0.36 #BASO 0.03 MANUAL DIFF NOT IND GLUCOSE 86.0 mg/dLSODIUM 138.0 mmol/LPOTASSIUM 4.0 mmol/LCHLORIDE 107.0 mmol/LCO2 24.0 mmol/LBUN 11.0 mg/dLCREATININE 0.60 mg/dLSGOT/AST 37.0 IU/LSGPT/ALT 54.0 IU/LALK PHOS 55.0 IU/LTOTAL PROTEIN 7.80 g/dLALBUMIN 4.30 g/dLTOTAL BILI 0.20 mg/dLCALCIUM 9.70 mg/dLAGE 25 GFR NonAA 121 GFR AA 147 eGFR >60 mL/min/1.73 m2eGFR AA* >60 TSH 0.950 uIU/mL 10/25/2015 1:00 PM WBC 6.6 RBC 4.76 HGB 14.30 g /dLHCT 44.20 %MCV 93.0 fLMCH 30.0 pgMCHC 32.40 g/dLRDW SD 43 RDW CV 12.40 %MPV 10.40 fLPLT 249 NRBC# 0.00 NRBC% 0.0 %NEUT 61.50 %%LYMP 25.70 %%MONO 6.40 %%EOS 5.60 %%BASO 0.50 %#NEUT 4.05 #LYMP 1.69 #MONO 0.42 #EOS 0.37 #BASO 0.03 MANUAL DIFF NOT IND D-DIMER QUANT 0.71 GLUCOSE 88.0 mg/dLSODIUM 138.0 mmol/LPOTASSIUM 4.0 mmol/LCHLORIDE 109.0 mmol/LCO2 23.0 mmol/LBUN 7.0 mg/dLCREATININE 0.70 mg/dLSGOT/AST 56.0 IU/LSGPT/ALT 87.0 IU/LALK PHOS 56.0 IU/LTOTAL PROTEIN 7.40 g/dLALBUMIN 4.20 g/dLTOTAL BILI 0.30 mg/dLCALCIUM 9.40 mg/dLAGE 25 GFR NonAA 101 GFR AA 122 eGFR >60 mL/min/1.73 m2eGFR AA* >60 LIPASE 16.0 U/LAMYLASE 85 IU/LBNP 49.0 pg/mL 05/23/2016 2:38 PM GLUCOSE 83.0 mg/dLSODIUM 138 .0 mmol/LPOTASSIUM 3.60 mmol/LCHLORIDE 105.0 mmol/LCO2 22.0 mmol/LBUN 9.0 mg/dLCREATININE 0.70 mg/dLSGOT/AST 48.0 IU/LSGPT/ALT 75.0 IU/LALK PHOS 57.0 IU/LTOTAL PROTEIN 8.50 g/dLALBUMIN 4.40 g/dLTOTAL BILI 0.40 mg/dLCALCIUM 9.60 mg/dLAGE 25 GFR NonAA 101 GFR AA 122 eGFR >60 mL/min/1.73 m2eGFR AA* >60 TSH 1.020 uIU/mL 10/17/2016 9:15 AM TSH 9.60 uIU/mL 12/11/2016 3:55 PM TSH 4.640 uIU/mL 01/08/2017 2:47 PM Test, Urine negati ve 02/15/2017 10:08 AM TSH 11.80 uIU/mL 03/06/2017 9:24 PM STREP SCREEN NEGATIVE 03/13/2017 8:42 AM WBC 4.8 RBC 5.04 HGB 14.60 g /dLHCT 44.0 %MCV 87.0 fLMCH 29.0 pgMCHC 33.20 g/dLRDW SD 39 RDW CV 12.20 %MPV 10.30 fLPLT 257 NRBC# 0.00 NRBC% 0.0 %NEUT 64.60 %%LYMP 20.50 %%MONO 7.50 %%EOS 6.60 %%BASO 0.40 %#NEUT 3.11 #LYMP 0.99 #MONO 0.36 #EOS 0.32 #BASO 0.02 MANUAL DIFF NOT IND MONO TEST NEGATIVE C REACTIVE PROTEIN 2.60 mg/dLGLUCOSE 85.0 mg/dLSODIUM 136.0 mmol/LPOTASSIUM 4.10 mmol/LCHLORIDE 105.0 mmol/LCO2 23.0 mmol/LBUN 5.0 mg/dLCREA TININE 0.80 mg/dLSGOT/AST 17.0 IU/LSGPT/ALT 16.0 IU/LALK PHOS 77.0 IU/LTOTAL PROTEIN 9.0 g/dLALBUMIN 4.10 g/dLTOTAL BILI 0.30 mg/dLCALCIUM 10.10 mg/dLAGE 26 GFR NonAA 86 GFR AA 104 eGFR >60 mL/min/1.73 m2eGFR AA* >60 SEDRATE 48.0 mm/hr 05/22/2017 10:36 AM Test, Urine negati ve 05/23/2017 9:05 AM TRIGLYCERIDES 107.0 mg/dLCHO LESTEROL 195.0 mg/dLHDL 47.0 mg/dLTOT CHOL/HDL 4.1 LDL (CALC) 127.0 mg/dLTSH 0.680 uIU/mL 06/27/2017 6:15 PM Test, Urine negati ve 06/27/2017 6:52 PM WBC 10.5 RBC 5.00 HGB 14.80 g/dLHCT 45.0 %MCV 90.0 fLMCH 29.60 pgMCHC 32.90 g/dLRDW SD 40 RDW CV 12.10 %MPV 9.90 fLPLT 317 NRBC# 0.00 NRBC% 0.0 %NEUT 64.90 %%LYMP 24.90 %%MONO 6.20 %%EOS 3.30 %%BASO 0.40 %#NEUT 6.81 #LYMP 2.61 #MONO 0.65 #EOS 0.35 #BASO 0.04 MANUAL DIFF NOT IND GLUCOSE 79.0 mg/dLSODIUM 137.0 mmol/LPOTASSIUM 3.80 mmol/LCHLORIDE 103.0 mmol/LCO2 26.0 mmol/LBUN 9.0 mg/dLCREATININE 0.70 mg/dLCALCIUM 9.80 mg/dLAGE 26 GFR NonAA 100 GFR AA 121 eGFR >60 mL/min/1.73 m2eGFR AA* >60 08/30/2017 2:50 PM D-DIMER Quant 541 09/24/2017 11:39 AM Test, Urine negati ve 01/22/2018 1:50 PM TSH 0.31 04/23/2018 11:01 AM TSH 2.05 01/28/2019 9:05 AM TSH 13.30 GLUCOSE 68 SODIUM 139 POTASSIUM 4.0 CHLORIDE 104.0 mmol/LCO2 25 BUN 12.0 mg/dLCREATININE 0.80 mg/dLSGOT/AST 16 SGPT/ALT 18 ALK PHOS 67 TOTAL PROTEIN 8.2 ALBUMIN 4.4 TOTAL BILI <0.5 CALCIUM 10.10 mg/dLAGE 28 GFR NonAA 85 GFR AA 103 eGFR 85 mL/min/1.73meGFR AA* >60 mL/min/1.73m 07/29/2019 5:38 PM Clarity Ur clear Urine-Color lt yellow Glucose Ur-sCnc neg Bilirub Ur Ql neg Ketones Ur Ql Strip neg Sp Gr Ur Qn 1.025 Hgb Ur Ql Strip Trace-Intact pH Ur-LsCnc 5.5 Prot Ur Ql Strip neg Urobilinogen Ur-mCnc 0.2 E.U/dL Nitrite Ur Ql Strip neg WBC # Ur neg 11/17/2019 3:55 PM Prolactin 11.5 10/05/2020 11:26 AM Test, Urine positi ve 10/05/2020 12:15 PM Cannabinoids (THC) NEGATIVE Phencyclidine (PCP) NEGATIVE Cocaine NEGATIVE Methamphetamine NEGATIVE Opiates NEGATIVE Amphetamine NEGATIVE Benzodiazepines NEGATIVE ng/mLTricyclic Antidepres NEGATIVE Methadone NEGATIVE Barbiturates NEGATIVE Oxycodone NEGATIVE Propoxyphene (PPX) NEGATIVE COLOR Light-Yellow CLARITY Clear SPEC GRAV 1.009 pH 5.0 PROTEIN Negative GLUCOSE Normal KETONE Negative BILIRUBIN Negative BLOOD Trace NITRITE Negative LEUK SCREEN 75 RBC/HPF 0-3 WBC/HPF 0-5 BACTERIA/HPF 1+ SQUAMOUS EPI/LPF None Seen CULT ORDERED YES 10/05/2020 1:25 PM WBC 8.3 RBC 4.80 HGB 14.40 g /dLHCT 44.60 %MCV 93.0 fLMCH 30.0 pgMCHC 32.30 g/dLRDW SD 44 %RDW CV 13.0 %MPV 11.10 fLPLT 302 x10E3/uLNRBC# 0.00 NRBC% 0.0 %NEUT 66.3 %LYMP 22.4 %MONO 7.5 %EOS 3.0 %BASO 0.6 #NEUT 5.48 #LYMP 1.85 #MONO 0.62 #EOS 0.25 #BASO 0.05 OB MANUAL DIFF NOT IND GESTATIONAL GLUCOSE 71 HEPATITIS B SURF AG 0.14 FREE T4 1.62 TSH 0.72 FERRITIN 25.0 ng/mLHEPATITIS C 42.40 HIV AG/AB COMBO 0.13 RPR Non Reactive HEPATITIS C 42.40 HSV 1 IgG, Type Spec 19.20 IndexHSV 2 IgG, Type Spec <0.91 IndexVaricella Zoster IgG 3528 Rubella Antibodies, IgG 12.70 10/21/2020 3:00 PM SGOT/AST 32 SGPT/ALT 24 ALK PHOS 52 TOTAL PROTEIN 7.8 ALBUMIN 4.5 TOTAL BILI 0.3 DIRECT BILI 0.2 INDIRECT BILI 0.1 Hepatitis C Quantitation HCV Not Detected Test Information: COMMENT 12/16/2020 11:47 AM FREE T4 1.08 TSH 4.41 01/14/2021 11:57 AM TSH W/REFLEX 4.77 FREE T4 1. 26 02/11/2021 12:48 PM TSH W/REFLEX 1.63 03/11/2021 12:30 PM WBC 12.0 RBC 4.10 HGB 12.20 g/dLHCT 37.30 %MCV 91.0 fLMCH 29.80 pgMCHC 32.70 g/dLRDW SD 44 %RDW CV 13.20 %MPV 10.40 fLPLT 296 x10E3/uLNRBC# 0.00 NRBC% 0.0 %NEUT 80.2 %LYMP 11.8 %MONO 4.6 %EOS 2.2 %BASO 0.3 #NEUT 9.62 #LYMP 1.42 #MONO 0.55 #EOS 0.26 #BASO 0.03 MANUAL DIFF NOT IND GESTATIONAL GLUCOSE 153 GLUCOSE 153 SODIUM 132 POTASSIUM 4.2 CHLORIDE 107.0 mmol/LCO2 21 BUN 6.0 mg/dLCREATININE 0.50 mg/dLSGOT/AST 15 SGPT/ALT 9 ALK PHOS 77 TOTAL PROTEIN 7.3 ALBUMIN 3.7 TOTAL BILI 0.3 CALCIUM 10.0 mg/dLAGE 30 GFR NonAA 144 GFR AA 175 eGFR 144 mL/min/1.73meGFR AA* >60 mL/min/1.73mFREE T4 0.88 FERRITIN 7.0 ng/mLTSH 1.77 RPR Non Reactive Hepatitis C Quantitation HCV Not Detected HCV log10 COMMENT Test Information: COMMENT HCV Genotype Not indicated DIRECT BILI 0.2 05/02/2021 4:58 PM STREP GROUP B PCR GBS NEGATI VE History Of Immunizations Name Date Admin Mfg Name Mfg Code Trade Name Lot# Route Inj Vis Given Vis Pub CVX HPV 11/27/2013 [employer] MSD GARDASIL [id number] Intramuscul ar Right Deltoid 11/27/2013 10/04/2012 62 Tdap 12/20/2017 GlaxoSmithKline SKB BOOSTRIX [id number] Intramuscular Right Arm 12/20/2017 05/21/2022 115 Influenza 02/11/2021 ID [employer] or [place] BCQ Flulaval, quadrivalent, preservative free [id number] Intramuscular Right Deltoid 02/11/2021 12/24/2020 1 50 Tdap 03/28/2021 GlaxoSmithKline SKB BOOSTRIX [id number] Intramuscular Right Deltoid 03/28/2021 12/24/2020 115 Tdap 03/28/2021 Gl[employer] SKB BOOSTRIX [id number] Intramuscular Right Deltoid 03/28/2021 12/24/2020 115 History of Past Illness Name Date of Onset Comments Hypothyroidism, acquired 09/15/2015 Chronic hepatitis C without hepatic coma 05/23/2016 HSV I Thyroid Disorder Nov 11 2013 10:20AM Hepatitis C Infection Nov 11 2013 10:20AM Bruising Nov 11 2013 10:20AM Abdominal pain, RUQ Nov 11 2013 10:20AM Rib pain on right side Nov 11 2013 10:20AM Routine gynecological examination Nov 27 2013 3:41PM Hepatitis C Infection Nov 27 2013 3:41PM Acute hepatitis C virus infection, without hepatic coma Dec 23 2013 5:03PM Abdominal cramping in right upper quadrant Dec 23 2013 5:03 PM Facial numbness Jul 11 2014 9:31AM 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 3:17PM Fatigue Jul 17 2014 10:14AM Maradiaga palsy Jul 17 2014 10:14AM Numbness and tingling Jul 21 2014 9:49AM Maradiaga palsy Jul 21 2014 9:49AM Dizziness Jul 21 2014 9:49AM Blurry vision Jul 21 2014 9:49AM Hypothyroidism, Acquired Aug 14 2014 10:24AM Thyroid disorder Nov 30 2014 12:36PM Routine gynecological examination Mar 17 2015 1:40PM Acquired hypothyroidism Mar 17 2015 1:40PM Chronic hepatitis C without hepatic coma Mar 17 2015 1:40PM Vaginal Discharge Mar 17 2015 1:40PM Hypothyroidism, Acquired May 31 2015 3:22PM Hypothyroidism, Acquired Sep 15 2015 1:24PM Blood in stool, ilan Sep 15 2015 1:24PM Hepatitis C Infection Sep 15 2015 1:24PM Rectal bleeding Sep 20 2015 3:32PM Internal Hemorrhoids: Grade I Sep 20 2015 3:32PM Shortness of breath Oct 25 2015 12:28PM Hypothyroidism, Acquired May 23 2016 2:04PM Chronic hepatitis C without hepatic coma May 23 2016 2:04PM Tobacco abuse May 23 2016 2:04PM Hepatitis C May 25 2016 4:20PM Contraceptive education Jun 09 2016 9:34AM Chronic hepatitis C without hepatic coma Jun 09 2016 9:34AM Encounter for surveillance of injectable contraceptive Jun 26 2016 4:25PM Routine gynecological examination Jul 10 2016 10:37AM Irregular Menses Jul 10 2016 10:37AM Encounter for surveillance of injectable contraceptive Aug 202016 3:34PM Anxiety Sep 18 2016 6:15PM Acquired hypothyroidism Oct 17 2016 8:49AM Chronic hepatitis C without hepatic coma Oct 17 2016 8:49AM Acute pain of right shoulder Oct 17 2016 8:49AM Acute pain of right shoulder Oct 20 2016 6:51PM Hypothyroidism, Acquired Dec 11 2016 11:30AM Hypothyroidism, Acquired Jan 08 2017 2:23PM Amenorrhea Jan 08 2017 2:23PM Encounter for initial prescription of contraceptive pills 2016 2:23PM Acquired hypothyroidism Feb 15 2017 8:51AM BMI 30.0-30.9,adult Feb 15 2017 8:51AM Sore throat Mar 06 2017 6:51PM Fever, unspecified fever cause Mar 13 2017 8:07AM Lymphadenopathy Mar 13 2017 8:07AM Cellulitis of left axilla Mar 02 2017 6:09PM Oral lesion Mar 06 2017 6:51PM Cellulitis of left axilla Mar 06 2017 6:51PM Routine gynecological examination May 22 2017 9:56AM Breast tenderness in female May 22 2017 9:56AM Breast swelling May 22 2017 9:56AM Hypothyroidism, Acquired May 22 2017 9:56AM Screening for ischemic heart disease May 22 2017 9:56AM Missed menses Jun 27 2017 5:58PM Fatigue Jun 27 2017 5:58PM Tooth abscess Jul 31 2017 5:56PM Pedal edema Aug 28 2017 6:10PM Pain of right lower extremity Aug 30 2017 2:04PM Right Leg swelling Aug 30 2017 2:04PM Irregular menses Sep 24 2017 10:18AM Drug testing, pre-employment Oct 24 2017 10:32AM Pre-employment examination Oct 24 2017 10:32AM Ganglion cyst Nov 15 2017 6:30PM Upper respiratory tract infection, unspecified type Dec 03 7:19PM Fever in other diseases Dec 03 2017 7:19PM Encounter for occupational health examination Dec 20 2017 8 :44AM Thyroid disorder Jan 22 2018 11:35AM Thyroid disorder Jan 22 2018 4:25PM Left foot pain Feb 23 2018 11:11AM Left foot pain Feb 27 2018 3:26PM Right shoulder pain Nov 22 2018 6:42PM Hypothyroidism, Acquired Jan 28 2019 8:30AM Weight gain Jan 28 2019 8:30AM Thyroid disorder Jan 28 2019 1:26PM Neck muscle spasm Apr 09 2019 11:39AM Skin infection Apr 09 2019 11:39AM Right flank pain Jul 29 2019 5:24PM Hematuria Jul 29 2019 5:24PM RLQ abdominal pain Jul 29 2019 5:24PM Headache Sep 03 2019 5:31PM Throat pain Sep 03 2019 5:31PM Hypothyroidism, acquired Oct 03 2019 10:19AM Anxiety Oct 03 2019 10:19AM Nipple discharge Nov 17 2019 3:27PM Bilateral Nipple discharge in female Nov 27 2019 8:59AM Breast pain Dec 11 2019 9:34AM Nipple discharge Dec 11 2019 9:34AM Hypothyroidism, Acquired Dec 23 2019 8:46AM Nipple discharge Dec 23 2019 8:46AM Depression Dec 23 2019 8:46AM Nipple Discharge Dec 31 2019 3:56PM Breast mass Dec 31 2019 3:56PM Breast lump on left side at 12 o'clock position Jan 07 2020 12:06PM Nipple discharge Jan 07 2020 12:06PM Encounter for laboratory testing for COVID-19 virus Apr 13 12:16PM Sinusitis, Acute Apr 16 2020 6:12PM Headache May 28 2020 9:21AM Visual color changes May 28 2020 9:21AM Pressure in head May 28 2020 9:21AM Nystagmus May 28 2020 9:21AM Headache Jun 01 2020 10:19AM Visual changes Jun 01 2020 10:19AM Palpitations Jun 22 2020 1:47PM Hypothyroidism, Acquired Jun 22 2020 1:47PM Migraine Jun 22 2020 1:47PM Palpitations Jun 29 2020 2:10PM Hypothyroidism, Acquired Sep 13 2020 2:51PM Palpitations Sep 13 2020 2:51PM test confirmed positive Oct 05 2020 10:55AM History of hepatitis C Oct 05 2020 10:55AM Obesity Oct 05 2020 10:55AM Endocrine, nutritional and metabolic dis eases complicating , unspecified trimester Oct 05 2020 10:55AM Hypothyroidism, unspecified Oct 05 2020 10:55AM Vaginal yeast infection Oct 05 2020 10:55AM Hepatitis C carrier Oct 21 2020 2:49PM High-risk in first trimester Oct 21 2020 2:49PM Normal in multigravida in first trimester Oct 21 3:10PM Normal in multigravida in first trimester Nov 18 2 021 11:04AM Encounter for supervision of normal preg kristina in multigravida in second trimester Dec 16 2020 10:10AM Endocrine, nutritional and metabolic dis eases complicating , second trimester Dec 16 2020 10:10AM Hypothyroidism, unspecified Dec 16 2020 10:10AM Viral hepatitis complicating , second trimester Dec 16 2020 10:10AM Chronic viral hepatitis C Dec 16 2020 10:10AM Hepatitis C Dec 17 2020 11:43AM Endocrine, nutritional and metabolic dis eases complicating , second trimester Dec 17 2020 11:43AM Hypothyroidism, unspecified Dec 17 2020 11:43AM Endocrine, nutritional and metabolic dis eases complicating , second trimester Jan 14 2021 11:35AM Hypothyroidism, unspecified Jan 14 2021 11:35AM High risk for intrapartum complications, second trimester Au 2020 11:35AM Endocrine, nutritional and metabolic dis eases complicating , third trimester Jan 19 2021 9:50AM Hypothyroidism, unspecified Jan 19 2021 9:50AM Endocrine, nutritional and metabolic dis eases complicating , unspecified trimester Feb 11 2021 12:07PM Hypothyroidism, unspecified Feb 11 2021 12:07PM Flu Vaccine Feb 11 2021 12:13PM Normal in multigravida in second trimester Mar 11 2021 11:26AM Endocrine, nutritional and metabolic dis eases complicating , second trimester Mar 11 2021 11:26AM Hypothyroidism, unspecified Mar 11 2021 11:26AM History of hepatitis C Mar 11 2021 11:26AM Encounter for supervision of normal preg kristina in multigravida in second trimester Mar 18 2021 10:48AM Need for Tdap vaccine Mar 28 2021 11:03AM screening for streptococcus B May 02 2021 10:04AM Gestational diabetes May 04 2021 10:22AM Endocrine, nutritional and metabolic dis eases complicating , third trimester May 04 2021 10:22AM Hypothyroidism, unspecified May 04 2021 10:22AM 6 weeks follow-up Jun 21 2021 3:50PM History of gestational diabetes Jun 21 2021 3:50PM Hypothyroidism, Acquired 2021 1:52PM History of gestational diabetes 2021 1:52PM Hypothyroidism, acquired 2021 5:01PM Left foot pain Aug 24 2021 7:01PM Hypothyroidism, Acquired Jan 05 2022 8:31AM Obese Jan 05 2022 8:31AM Rib pain on left side Jan 06 2022 11:14AM Muscle spasm Jan 06 2022 11:14AM Rib pain on left side Jan 10 2022 10:07AM Hypothyroidism, Acquired Jan 10 2022 10:07AM BMI 31.0-31.9,adult Jan 10 2022 10:07AM Body Mass Index [BMI]; body mass index b etween 30-39, adult; body mass index 30.0-30.9, adult Feb 13 2022 1:55PM Dietary Counseling Feb 13 2022 1:55PM Exercise Counseling Feb 13 2022 1:55PM Acquired hypothyroidism Feb 13 2022 1:55PM Allergic dermatitis Apr 22 2022 1:57PM Lumbago with sciatica, left side May 02 2022 9:39AM Coccyx pain May 02 2022 9:39AM Fracture of coccyx May 02 2022 9:39AM Urticaria May 17 2022 9:02AM Hypothyroidism, Acquired May 17 2022 9:02AM Lumbago with sciatica, left side May 30 2022 10:47AM Fracture of coccyx May 30 2022 10:47AM Payers Insurance Name Company Name Plan Name Plan Number Policy Number [place] Group Number Start Date [place] [employer] [place] [employer] - RH C [id number] Monday, 2020 [place] [employer] [place] [employer] [id number] N/A BCBS [employer] [place] [id number] 2013 [facility] [id number] [facility] [id number] N/A [employer] [id number] N/A [employer] [id number] N/A [employer] [id number] N/A [facility] Med Occupational Medicine [id number] N/A [employer] [place] [id number] N/ A [employer] [place] [id number] N/ A History of Encounters Visit Date Visit Type Provider 05/30/2022 Office visit Nimco Oneill [employer] EDUCATION INCLUSION TEACHER 05/17/2022 Office visit Nimco Oneill SPECIAL EDUCATION INCLUSION TEACHER 05/02/2022 Office visit Nimco Oneill SPECIAL EDUCATION INCLUSION TEACHER 04/22/2022 Office visit Karina Etienne SPECIAL EDUCATION INCLUSION TEACHER 02/13/2022 Office visit Nimco Oneill SPECIAL EDUCATION INCLUSION TEACHER 01/10/2022 Office visit Nimco Oneill SPECIAL EDUCATION INCLUSION TEACHER 01/06/2022 Office visit Josette Coffey AP RN 01/05/2022 Office visit Nimco Oneill SPECIAL EDUCATION INCLUSION TEACHER 08/24/2021 Office visit Toya MASTERSON RN 2021 Office visit Nimco Oneill SPECIAL EDUCATION INCLUSION TEACHER 06/21/[address] Nafisa castro MD 05/10/[address] [facility] [address] Nafisa castro MD 05/09/[address] Nafisa castro MD 05/02/2021 Office visit Meño Castro 04/25/2021 Office visit Meño Gaines D 04/11/2021 Office visit Meño Marrero M D 03/28/[address] Nafisa castro MD 03/11/2021 Office visit Meño Marrero M D 02/11/2021 Office visit Meño Hsus M D 01/14/2021 Office visit Meño Gaines D 12/16/2020 Office visit Meño Marrero M D 11/18/2020 Office visit Meño Hsus M D 10/21/2020 Office visit Meño Marrero M D 10/05/2020 Office visit Trupti Rodríguez n SPECIAL EDUCATION INCLUSION TEACHER 09/13/2020 Office visit Nimco Oneill SPECIAL EDUCATION INCLUSION TEACHER 06/29/2020 Hospital Ilan Santiago MD 06/22/2020 [facility] Ilan Santiago MD 06/22/2020 Office visit Nimco Oneill SPECIAL EDUCATION INCLUSION TEACHER 06/01/2020 Office visit Nimco Oneill SPECIAL EDUCATION INCLUSION TEACHER 05/28/2020 Office visit Nimco Oneill SPECIAL EDUCATION INCLUSION TEACHER 04/16/2020 Office visit Josette MASTERSON RN 04/13/2020 Office visit Toya MASTERSON RN 04/04/2020 Voided Trupti EderKaveh andrews SPECIAL EDUCATION INCLUSION TEACHER 12/31/2019 Office visit Trupti andrews SPECIAL EDUCATION INCLUSION TEACHER 12/23/2019 Office visit Nimco Oneill SPECIAL EDUCATION INCLUSION TEACHER 12/11/2019 Office visit Nimco Oneill SPECIAL EDUCATION INCLUSION TEACHER 11/20/2019 Voided Nimco Walker SPECIAL EDUCATION INCLUSION TEACHER 11/17/2019 Office visit Nimco Oneill SPECIAL EDUCATION INCLUSION TEACHER 10/03/2019 Office visit Nimco Oneill SPECIAL EDUCATION INCLUSION TEACHER 09/03/2019 Office visit Josette MASTERSON RN 07/29/2019 Office visit Toya MASTERSON RN 04/09/2019 Office visit Concetta Goldstein APR N 01/28/2019 Office visit Nimco Oneill SPECIAL EDUCATION INCLUSION TEACHER 11/22/2018 Office visit Toya MASTERSON RN 02/27/2018 Office visit Nimco Oneill SPECIAL EDUCATION INCLUSION TEACHER 02/23/2018 Office visit Toya MASTERSON RN 12/20/2017 Office visit Nimco Oneill SPECIAL EDUCATION INCLUSION TEACHER 12/03/2017 Office visit Sebastián Lowery APR N 11/15/2017 Office visit Concetta Goldstein APR N 10/24/2017 Office visit Autumn MASTERSON RN 09/24/2017 Office visit Nimco Walker SPECIAL EDUCATION INCLUSION TEACHER 08/30/2017 Office visit Nimco Walker SPECIAL EDUCATION INCLUSION TEACHER 08/28/2017 Office visit Hannah Cardoza SPECIAL EDUCATION INCLUSION TEACHER 07/31/2017 Office visit Sukh Knight NP 06/27/2017 Office visit Concetta Duque Ventana APR N 05/22/2017 Office visit Nimco Walker SPECIAL EDUCATION INCLUSION TEACHER 03/13/2017 Office visit Nimco Walker SPECIAL EDUCATION INCLUSION TEACHER 03/06/2017 Office visit Concetta Duque Ventana APR N 03/02/2017 Office visit Concetta L. Ventana APR N 02/15/2017 Office visit Nimco Walker SPECIAL EDUCATION INCLUSION TEACHER 01/08/2017 Office visit Nimco Walker SPECIAL EDUCATION INCLUSION TEACHER 10/20/2016 Office visit Concetta Duque Ventana APR N 10/17/2016 Office visit Nimco Walker SPECIAL EDUCATION INCLUSION TEACHER 09/18/2016 Office visit Sebastián Lowery APR N 09/11/2016 Nurse visit Nimco Walker SPECIAL EDUCATION INCLUSION TEACHER 07/10/2016 Office visit Nimco Walker SPECIAL EDUCATION INCLUSION TEACHER 06/26/2016 Nurse visit Nimco Oneill SPECIAL EDUCATION INCLUSION TEACHER 06/09/2016 Office visit Nimco Walker SPECIAL EDUCATION INCLUSION TEACHER 05/23/2016 Office visit Nimco Walker SPECIAL EDUCATION INCLUSION TEACHER 10/25/2015 Office visit Sebastián Lowery APR N 10/22/2015 Hospital Milagros Alba MD 09/20/2015 Office visit Bernardino Adair MD 09/15/2015 Office visit Nimco Walker SPECIAL EDUCATION INCLUSION TEACHER 03/17/2015 Office visit Nimco Walker SPECIAL EDUCATION INCLUSION TEACHER 08/14/2014 Office visit Nimco Walker SPECIAL EDUCATION INCLUSION TEACHER 07/28/2014 [facility] Katrina Deras MD 07/21/2014 Office visit Nimco Walker SPECIAL EDUCATION INCLUSION TEACHER 07/17/2014 Office visit Nimco Walker SPECIAL EDUCATION INCLUSION TEACHER 07/14/2014 Office visit Nimco Walker SPECIAL EDUCATION INCLUSION TEACHER 07/11/2014 Office visit Sebastián Lowery APR N 11/27/2013 Office visit Nimco Walker SPECIAL EDUCATION INCLUSION TEACHER 11/11/2013 Office visit Nimco Walker SPECIAL EDUCATION INCLUSION TEACHER
--- OUTSIDE RECORDS SUMMARY | 2022-06-06 16:03 | XMS REPORT ---
Author Author Alicia Oneill [facility] o[facility] Address [address] [place], [place] [id number] Care Team Providers Care Hard Candy Spinner Name Role Phone Nimco Oneill PCP Nimco Oneill PreferredProvider Allergies and Adverse Reactions Name Reaction Notes morphine Vicodin Shell Fish (shrimp, crayfish, lobster, crab) Plan of Treatment Planned Activity Comments Planned Date Planned Time Plan/Goal Hepatitis C and hypothyroid 01/12/2021 12:45 PM TSH 01/28/2019 12:00 AM EKG. 06/22/2020 12:00 AM EKG. 06/29/2020 12:00 AM TSH 10/03/2021 12:00 AM TSH 05/17/2022 12:00 AM MARTITA W/REFLEX 05/17/2022 12:00 AM CRP 05/17/2022 12:00 AM SED RATE 05/17/2022 12:00 AM RAST 05/17/2022 12:00 AM Fertility consult, has been attempting for more than 1yr . Medications Active Name Start Date Estimated Completion Date SIG Co mments Sprintec (28) 0.25-35 mg-mcg oral tablet 2021 07/04/19 23 take 1 tablet by oral route once daily for 84 days diclofenac sodium oral tablet,delayed release (DR/EC) 75 mg 04/20 take 1 tablet (75 mg) by oral route 2 times per day tramadol oral tablet 50 mg 05/02/2022 take 1 tablet (50 mg) by oral route every 6 hours as needed hydrocodone-acetaminophen oral tablet 5-325 mg 05/03/2022 take 1 tablet by oral route every 6 hours as needed for pain Name Start Date Expiration Date SIG Comments [...] HC BMI BSA BMI Percentile O2 Sat(%) 05/17/2022 8:59:00 AM 132 mm[Hg] 80 mm[Hg] 99 {beats}/min 18 rpm 98.1 F 185 lbs 66 in 29.8595 kg/m2 1.9768 m2 97 % 05/02/2022 9:37:00 AM 118 mm[Hg] 86 mm[Hg] 84 {beats}/min 18 rpm 97.7 F 180.125 lbs 66 in 29.07 kg/m2 1.95 m2 100 % 04/22/2022 1:55:00 PM 99 {beats}/min 16 rpm 98.6 F 186.125 lbs 66 in 30.0411 kg/m2 1.9828 m2 100 % 02/13/2022 1:54:00 PM 120 mm[Hg] 86 mm[Hg] 89 {beats}/min 18 rpm 97.7 F 189.125 lbs 66 in 30.5253 kg/m2 2.00 m2 99 % 01/10/2022 10:06:00 AM 112 mm[Hg] 70 mm[Hg] 83 {beats}/min 18 rpm 97.7 F 197.5 lbs 66 in 31.88 kg/m2 2.0425 m2 99 % 01/06/2022 11:10:00 AM 120 mm[Hg] 60 mm[Hg] 81 {beats}/min 16 rpm 98.2 F 197 lbs 66 in 31.7963 kg/m2 2.04 m2 100 % 01/05/2022 8:29:00 AM 110 mm[Hg] 78 mm[Hg] 85 {beats}/min 18 rpm 98.1 F 198.375 lbs 66 in 32.02 kg/m2 2.047 m2 100 % 08/24/2021 6:59:00 PM 112 mm[Hg] 78 mm[Hg] 79 {beats}/min 16 rpm 98.2 F 213.375 lbs 66 in 34.4393 kg/m2 2.12 m2 100 % 2021 1:49:00 PM 112 mm[Hg] 78 mm[Hg] 78 {beats}/min 20 rpm 97.7 F 213 lbs 66 in 34.38 kg/m2 2.1211 m2 100 % 06/21/2021 3:43:00 PM 119 mm[Hg] 80 mm[Hg] 88 {beats}/min 98.1 F 210 lbs 65 in 34.95 kg/m2 2.09 m2 10/05/2020 10:52:00 AM 115 mm[Hg] 73 mm[Hg] 83 {beats}/min 97.9 F 217 lbs 64 in 37.2476 kg/m2 2.1082 m2 09/13/2020 2:46:00 PM 126 mm[Hg] 70 mm[Hg] 116 {beats}/min 16 rpm 98.1 F 214 lbs 66 in 34.54 kg/m2 2.13 m2 100 % 06/22/2020 1:44:00 PM 122 mm[Hg] 72 mm[Hg] 69 {beats}/min 18 rpm 98.2 F 211 lbs 66 in 34.0559 kg/m2 2.1111 m2 97 % 06/01/2020 10:17:00 AM 122 mm[Hg] 76 mm[Hg] 92 {beats}/min 18 rpm 97.9 F 214 lbs 66 in 34.54 kg/m2 2.13 m2 98 % 05/28/2020 9:19:00 AM 138 mm[Hg] 72 mm[Hg] 105 {beats}/min 18 rpm 98.2 F 214 lbs 66 in 34.5401 kg/m2 2.1261 m2 96 % 04/16/2020 6:07:00 PM 118 mm[Hg] 78 mm[Hg] 97 {beats}/min 18 rpm 99 F 207.375 lbs 66 in 33.47 kg/m2 2.09 m2 99 % 04/13/2020 3:27:00 PM 89 {beats}/min 20 rpm 99 % 12/31/2019 3:50:00 PM 137 mm[Hg] 93 mm[Hg] 91 {beats}/min 98.2 F 21 8 lbs 66 in 35.19 kg/m2 2.1459 m2 12/23/2019 8:46:00 AM 100 {beats}/min 16 rpm 98.6 F 217 lbs 66 i n 35.0244 kg/m2 2.14 m2 100 % 12/11/2019 9:32:00 AM 128 mm[Hg] 70 mm[Hg] 112 {beats}/min 16 rpm 98.7 F 217 lbs 66 in 35.02 kg/m2 2.1409 m2 99 % 11/17/2019 3:26:00 PM 117 {beats}/min 18 rpm 97.9 F 218 lbs 66 in 35.1858 kg/m2 2.15 m2 98 % 07/29/2019 5:22:00 PM 130 mm[Hg] 72 mm[Hg] 89 {beats}/min 18 rpm 98.2 F 215.25 lbs 66 in 34.74 kg/m2 2.1323 m2 100 % 04/09/2019 11:37:00 AM 132 mm[Hg] 90 mm[Hg] 81 {beats}/min 16 rpm 97.9 F 210.25 lbs 66 in 33.9349 kg/m2 2.11 m2 100 % 01/28/2019 8:28:00 AM 112 mm[Hg] 72 mm[Hg] 79 {beats}/min 13 rpm 98.2 F 207.8 lbs 66 in 33.54 kg/m2 2.095 m2 100 % 11/22/2018 6:41:00 PM 119 mm[Hg] 78 mm[Hg] 76 {beats}/min 98.1 F 203 lbs 66 in 32.7647 kg/m2 2.07 m2 98 % 02/27/2018 3:25:00 PM 122 mm[Hg] 72 mm[Hg] 93 {beats}/min 18 rpm 98.4 F 199 lbs 66 in 32.12 kg/m2 2.0502 m2 98 % 02/23/2018 11:07:00 AM 115 mm[Hg] 79 mm[Hg] 74 {beats}/min 18 rpm 98.4 F 199.125 lbs 66 in 32.14 kg/m2 2.05 m2 100 % 12/20/2017 8:41:00 AM 120 mm[Hg] 71 mm[Hg] 93 {beats}/min 16 rpm 98.4 F 193 lbs 66 in 31.1507 kg/m2 2.0191 m2 100 % 12/03/2017 7:15:00 PM 115 mm[Hg] 81 mm[Hg] 108 {beats}/min 18 rpm 98.8 F 189.375 lbs 66 in 30.57 kg/m2 2.00 m2 100 % 11/15/2017 6:25:00 PM 128 mm[Hg] 78 mm[Hg] 96 {beats}/min 16 rpm 99 F 189.125 lbs 66 in 30.5253 kg/m2 1.9987 m2 100 % 10/24/2017 10:29:00 AM 120 mm[Hg] 80 mm[Hg] 78 {beats}/min 20 rpm 97.8 F 184.25 lbs 66 in 29.74 kg/m2 1.97 m2 100 % 09/24/2017 10:16:00 AM 128 mm[Hg] 70 mm[Hg] 92 {beats}/min 18 rpm 98.8 F 185.5 lbs 66 in 29.9402 kg/m2 1.9794 m2 99 % 08/30/2017 2:02:00 PM 119 mm[Hg] 68 mm[Hg] 88 {beats}/min 18 rpm 98.8 F 192 lbs 66 in 30.99 kg/m2 2.01 m2 100 % 08/28/2017 6:07:00 PM 130 mm[Hg] 60 mm[Hg] 85 {beats}/min 98.8 F 19 4.25 lbs 100 % 08/28/2017 6:07:00 PM 130 mm[Hg] 60 mm[Hg] 85 {beats}/min 98.8 F 19 4.25 lbs 100 % 07/31/2017 5:51:00 PM 124 mm[Hg] 84 mm[Hg] 82 {beats}/min 18 rpm 97.7 F 194 lbs 67 in 30.3844 kg/m2 2.0396 m2 98 % 06/27/2017 5:51:00 PM 120 mm[Hg] 84 mm[Hg] 68 {beats}/min 18 rpm 99.8 F 189 lbs 66 in 30.51 kg/m2 2.00 m2 100 % 05/22/2017 9:54:00 AM 121 mm[Hg] 70 mm[Hg] 105 {beats}/min 16 rpm 98.2 F 190 lbs 66 in 30.6665 kg/m2 2.0033 m2 100 % 03/13/2017 8:05:00 AM 116 mm[Hg] 68 mm[Hg] 101 {beats}/min 18 rpm 98 F 182 lbs 66 in 29.38 kg/m2 1.96 m2 99 % 03/06/2017 6:46:00 PM 124 mm[Hg] 82 mm[Hg] 96 {beats}/min 18 rpm 98.9 F 183 lbs 66 in 29.5367 kg/m2 1.9661 m2 98 % 03/02/2017 6:08:00 PM 118 mm[Hg] 74 mm[Hg] 85 {beats}/min 18 rpm 99.8 F 184 lbs 66 in 29.70 kg/m2 1.97 m2 98 % 02/15/2017 8:50:00 AM 118 mm[Hg] 71 mm[Hg] 110 {beats}/min 18 rpm 98.9 F 189.375 lbs 66 in 30.5656 kg/m2 2 m2 99 % 01/08/2017 2:21:00 PM 142 mm[Hg] 80 mm[Hg] 84 {beats}/min 18 rpm 98.7 F 188.125 lbs 66 in 30.36 kg/m2 1.99 m2 99 % 10/20/2016 6:48:00 PM 118 mm[Hg] 82 mm[Hg] 92 {beats}/min 18 rpm 99.7 F 180 lbs 66 in 29.0525 kg/m2 1.9499 m2 100 % 10/17/2016 8:47:00 AM 124 mm[Hg] 72 mm[Hg] 88 {beats}/min 18 rpm 99.6 F 179.5 lbs 66 in 28.97 kg/m2 1.95 m2 100 % 09/18/2016 6:13:00 PM 99 mm[Hg] 61 mm[Hg] 86 {beats}/min 20 rpm 99.5 F 1 77.5 lbs 66 in 28.649 kg/m2 1.9363 m2 100 % 07/10/2016 10:35:00 AM 128 mm[Hg] 68 mm[Hg] 100 {beats}/min 18 rpm 98.2 F 165.375 lbs 66 in 26.69 kg/m2 1.87 m2 100 % 06/09/2016 9:32:00 AM 124 mm[Hg] 62 mm[Hg] 88 {beats}/min 18 rpm 98.2 F 161.125 lbs 66 in 26.006 kg/m2 1.8448 m2 100 % 05/23/2016 2:02:00 PM 124 mm[Hg] 64 mm[Hg] 76 {beats}/min 18 rpm 97.5 F 158.25 lbs 66 in 25.54 kg/m2 1.83 m2 100 % 10/25/2015 12:27:00 PM 116 mm[Hg] 70 mm[Hg] 81 {beats}/min 16 rpm 98.2 F 142 lbs 66 in 22.9192 kg/m2 1.7319 m2 100 % 09/15/2015 1:21:00 PM 100 mm[Hg] 64 mm[Hg] 87 {beats}/min 14 rpm 99.3 F 143.25 lbs 66 in 23.12 kg/m2 1.74 m2 100 % 03/17/2015 1:38:00 PM 122 mm[Hg] 64 mm[Hg] 94 {beats}/min 18 rpm 97.8 F 133.125 lbs 66 in 21.4867 kg/m2 1.6769 m2 100 % 08/14/2014 10:22:00 AM 126 mm[Hg] 70 mm[Hg] 85 {beats}/min 18 rpm 97.2 F 144.375 lbs 66 in 23.30 kg/m2 1.75 m2 98 % 07/21/2014 9:47:00 AM 114 mm[Hg] 60 mm[Hg] 63 {beats}/min 18 rpm 97.8 F 146.5 lbs 66 in 23.6455 kg/m2 1.7591 m2 100 % 07/17/2014 10:12:00 AM 124 mm[Hg] 64 mm[Hg] 59 {beats}/min 18 rpm 96.6 F 147.25 lbs 66 in 23.77 kg/m2 1.76 m2 100 % 07/14/2014 3:15:00 PM 118 mm[Hg] 64 mm[Hg] 81 {beats}/min 18 rpm 98.5 F 147.125 lbs 66 in 23.7464 kg/m2 1.7628 m2 100 % 07/11/2014 9:29:00 AM 124 mm[Hg] 74 mm[Hg] 75 {beats}/min 18 rpm 97.9 F 148 lbs 66 in 23.89 kg/m2 1.77 m2 100 % 11/27/2013 3:39:00 PM 122 mm[Hg] 64 mm[Hg] 81 {beats}/min 18 rpm 98.8 F 140.5 lbs 66 in 22.6771 kg/m2 1.7227 m2 100 % 11/11/2013 10:25:00 AM 122 mm[Hg] 62 mm[Hg] 76 {beats}/min 18 rpm 98.9 F 149.312 lbs 66 in 24.10 kg/m2 1.78 m2 99 % Social History Name Description Comments Vapor Cigarettes Never denies alcohol use 06/27/2017 - Tobacco Current some day smoker 07/29/2019 - [facility] Children lives with children History of Procedures [...] AM COMPLETE CBC W/AUTO DIFF WBC Returned 11/11/2013 12:00 AM IRON BINDING TEST [...] 361 %Saturation Calc 14 Hepatitis C Quantitation 757408 HCV log10 5.504 01/01/2014 4:15 PM WBC [...] 11/27/2013 [employer] MSD GARDASIL [id number] Intramuscul ar Right Deltoid 11/27/2013 10/04/2012 62 Tdap 12/20/2017 [employer] SKB BOOSTRIX [id number] Intramuscular Right Arm 12/20/2017 05/21/2021 115 Influenza 02/11/2021 ID [employer] Charity or [place] BCQ Flulaval, quadrivalent, preservative free [id number] Intramuscular [...] Encounter for initial prescription of contraceptive pills Au 2016 2:23PM Acquired hypothyroidism Feb 15 2017 [...] in multigravida in first trimester Nov 18 11:04AM Encounter for supervision of normal preg [...] 9:02AM Hypothyroidism, Acquired May 17 2022 9:02AM Payers Insurance Name Company Name Plan Name Plan Number Policy Number Burak cy Group Number Start Date [place] [employer] - [employer] [place] [employer] - RH C [id number] Monday, 2020 [place] [employer] [place] [facility] ellie Prog [id number] N/A [id number] 2013 [facility] [id number] [facility] [id number] N/A [employer] [id number] N/A [employer] [id number] N/A [employer] [id number] N/A [facility] Med Occupational Medicine [id number] N/A [employer] [place] [id number] N/ A [employer] [place] [id number] N/ A History of Encounters Visit Date Visit Type Provider 05/17/2022 Office visit Nimco Oneill [facility] REPORTER 05/02/2022 Office visit Nimco Oneill [facility] REPORTER 04/22/2022 Office visit Karina Etienne [facility] REPORTER 02/13/2022 Office visit Nimco Oneill [facility] REPORTER 01/10/2022 Office visit Nimco Oneill [facility] REPORTER 01/06/2022 Office visit Josette MASTERSON RN 01/05/2022 Office visit Nimco Oneill [facility] REPORTER 08/24/2021 Office visit Toya MASTERSON RN 2021 Office visit Nimco Oneill [facility] REPORTER 06/21/[address] Nafisa castro MD 05/10/[address] [facility] [address] Nafisa castro MD 05/09/[address] Nafisa castro MD 05/02/2021 Office visit Meño Castro 04/25/2021 Office visit Meño Gaines D 04/11/2021 Office visit Meño Gaines D 03/28/[address] Nafisa castro MD 03/11/2021 Office visit Meño Castro 02/11/2021 Office visit Meño Gaines D 01/14/2021 Office visit Meño Gaines D 12/16/2020 Office visit Meño Gaines D 11/18/2020 Office visit Meño Marrero M D 10/21/2020 Office visit Meño Marrero M D 10/05/2020 Office visit Trupti andrews [facility] REPORTER 09/13/2020 Office visit Nimco Oneill [facility] REPORTER 06/29/2020 Hospital Ilan Santiago MD 06/22/2020 [facility] Ilan Santiago MD 06/22/2020 Office visit Nimco Walker [facility] REPORTER 06/01/2020 Office visit Nimco Walker [facility] REPORTER 05/28/2020 Office visit Nimco Walker [facility] REPORTER 04/16/2020 Office visit Josette MASTERSON RN 04/13/2020 Office visit Toya MASTERSON RN 04/04/2020 Voided Trupti Rodríguez n [facility] REPORTER 12/31/2019 Office visit Trupti Rodríguez n [facility] REPORTER 12/23/2019 Office visit Nimco Walker [facility] REPORTER 12/11/2019 Office visit Nimco Walker [facility] REPORTER 11/20/2019 Voided Nimco Walker [facility] REPORTER 11/17/2019 Office visit Nimco Walker [facility] REPORTER 10/03/2019 Office visit Nimco Walker [facility] REPORTER 09/03/2019 Office visit Josette MASTERSON RN 07/29/2019 Office visit Toya MASTERSON RN 04/09/2019 Office visit Concetta L. Sagar APR N 01/28/2019 Office visit Nimco Walker [facility] REPORTER 11/22/2018 Office visit Toya MASTERSON RN 02/27/2018 Office visit Nimco Nino [facility] REPORTER 02/23/2018 Office visit Toya MASTERSON RN 12/20/2017 Office visit Nimco Walker [facility] REPORTER 12/03/2017 Office visit Sebastián Quinteroran APR N 11/15/2017 Office visit Concetta L. Sagar APR N 10/24/2017 Office visit Autumn MASTERSON RN 09/24/2017 Office visit Nimco Walker [facility] REPORTER 08/30/2017 Office visit Nimco Walker [facility] REPORTER 08/28/2017 Office visit Hannah Cardoza [facility] REPORTER 07/31/2017 Office visit Sukh Knight NP 06/27/2017 Office visit Concetta L. Sagar APR N 05/22/2017 Office visit Nimco Walker [facility] REPORTER 03/13/2017 Office visit Nimco Walker [facility] REPORTER 03/06/2017 Office visit Concetta L. Sagar APR N 03/02/2017 Office visit Concetta L. Sagar APR N 02/15/2017 Office visit Nimco Walker [facility] REPORTER 01/08/2017 Office visit Nimco Walker [facility] REPORTER 10/20/2016 Office visit Concetta L. Sagar APR N 10/17/2016 Office visit Nimco Walker [facility] REPORTER 09/18/2016 Office visit Sebastián Lowery APR N 09/11/2016 Nurse visit Nimco Walker [facility] REPORTER 07/10/2016 Office visit Nimco Walker [facility] REPORTER 06/26/2016 Nurse visit Nimco Walker [facility] REPORTER 06/09/2016 Office visit Nimco Oneill [facility] REPORTER 05/23/2016 Office visit Nimco Oneill [facility] REPORTER 10/25/2015 Office visit Sebastián Lowery APR N 10/22/2015 Hospital Milagros Alba MD 09/20/2015 Office visit Bernardino Adair MD 09/15/2015 Office visit Nimco Oneill [facility] REPORTER 03/17/2015 Office visit Nimco Oneill [facility] REPORTER 08/14/2014 Office visit Nimco Oneill [facility] REPORTER 07/28/2014 [facility] Katrina Deras MD 07/21/2014 Office visit Nimco Oneill [facility] REPORTER 07/17/2014 Office visit Nimco Oneill [facility] REPORTER 07/14/2014 Office visit Nimco Oneill [facility] REPORTER 07/11/2014 Office visit Sebastián Lowery APR N 11/27/2013 Office visit Nimco Oneill [facility] REPORTER 11/11/2013 Office visit Nimco Oneill [facility] REPORTER
--- OUTSIDE RECORDS SUMMARY | 2022-06-06 16:03 | XMS REPORT ---
Author Author Alicia Oneill [facility] Address [address] [place], [place] [id number] Care Team Providers Care Recruiting Manager Name Role Phone Nimco Oneill PCP Nimco Oneill PreferredProvider Allergies and Adverse Reactions Name Reaction Notes morphine Vicodin Shell Fish (shrimp, crayfish, lobster, crab) Plan of Treatment Planned Activity Comments Planned Date Planned Time Plan/Goal Hepatitis C and hypothyroid 01/12/2021 12:45 PM TSH 01/28/2019 12:00 AM EKG. 06/22/2020 12:00 AM EKG. 06/29/2020 12:00 AM TSH 10/03/2021 12:00 AM Fertility consult, has been attempting [...] HC BMI BSA BMI Percentile O2 Sat(%) 05/31/2022 2:38:00 PM 120 mm[Hg] 70 mm[Hg] 82 {beats}/min 18 rpm 97.9 F 84.1 kg 66 in 29.9255 kg/m2 1.979 m2 100 % 05/30/2022 10:46:00 AM 120 mm[Hg] 80 mm[Hg] 95 {beats}/min 18 rpm 97.9 F 83 kg 66 in 29.53 kg/m2 1.97 m2 98 % 05/17/2022 8:59:00 AM 132 mm[Hg] 80 mm[Hg] 99 {beats}/min 18 rpm 98.1 F 83.9146 kg 66 in 29.8595 kg/m2 1.9768 m2 97 % 05/02/2022 9:37:00 AM 118 mm[Hg] 86 mm[Hg] 84 {beats}/min 18 rpm 97.7 F 81.7033 kg 66 in 29.07 kg/m2 1.95 m2 100 % 04/22/2022 1:55:00 PM 99 {beats}/min 16 rpm 98.6 F 84.4249 kg 6 6 in 30.0411 kg/m2 1.9828 m2 100 % 02/13/2022 1:54:00 PM 120 mm[Hg] 86 mm[Hg] 89 {beats}/min 18 rpm 97.7 F 85.7857 kg 66 in 30.53 kg/m2 2.00 m2 99 % 01/10/2022 10:06:00 AM 112 mm[Hg] 70 mm[Hg] 83 {beats}/min 18 rpm 97.7 F 89.5845 kg 66 in 31.877 kg/m2 2.0425 m2 99 % 01/06/2022 11:10:00 AM 120 mm[Hg] 60 mm[Hg] 81 {beats}/min 16 rpm 98.2 F 89.3577 kg 66 in 31.80 kg/m2 2.04 m2 100 % 01/05/2022 8:29:00 AM 110 mm[Hg] 78 mm[Hg] 85 {beats}/min 18 rpm 98.1 F 89.9814 kg 66 in 32.0182 kg/m2 2.047 m2 100 % 08/24/2021 6:59:00 PM 112 mm[Hg] 78 mm[Hg] 79 {beats}/min 16 rpm 98.2 F 96.7853 kg 66 in 34.44 kg/m2 2.12 m2 100 % 2021 1:49:00 PM 112 mm[Hg] 78 mm[Hg] 78 {beats}/min 20 rpm 97.7 F 96.6152 kg 66 in 34.3787 kg/m2 2.1211 m2 100 % 06/21/2021 3:43:00 PM 119 mm[Hg] 80 mm[Hg] 88 {beats}/min 98.1 F 95.2544 kg 65 in 34.95 kg/m2 2.09 m2 10/05/2020 10:52:00 AM 115 mm[Hg] 73 mm[Hg] 83 {beats}/min 97.9 F 98.4295 kg 64 in 37.2476 kg/m2 2.1082 m2 09/13/2020 2:46:00 PM 126 mm[Hg] 70 mm[Hg] 116 {beats}/min 16 rpm 98.1 F 97.0688 kg 66 in 34.54 kg/m2 2.13 m2 100 % 06/22/2020 1:44:00 PM 122 mm[Hg] 72 mm[Hg] 69 {beats}/min 18 rpm 98.2 F 95.708 kg 66 in 34.0559 kg/m2 2.1111 m2 97 % 06/01/2020 10:17:00 AM 122 mm[Hg] 76 mm[Hg] 92 {beats}/min 18 rpm 97.9 F 97.0688 kg 66 in 34.54 kg/m2 2.13 m2 98 % 05/28/2020 9:19:00 AM 138 mm[Hg] 72 mm[Hg] 105 {beats}/min 18 rpm 98.2 F 97.0688 kg 66 in 34.5401 kg/m2 2.1261 m2 96 % 04/16/2020 6:07:00 PM 118 mm[Hg] 78 mm[Hg] 97 {beats}/min 18 rpm 99 F 94.0637 kg 66 in 33.47 kg/m2 2.09 m2 99 % 04/13/2020 3:27:00 PM 89 {beats}/min 20 rpm 99 % 12/31/2019 3:50:00 PM 137 mm[Hg] 93 mm[Hg] 91 {beats}/min 98.2 F 98.8831 kg 66 in 35.1858 kg/m2 2.1459 m2 12/23/2019 8:46:00 AM 100 {beats}/min 16 rpm 98.6 F 98.4295 kg 6 6 in 35.02 kg/m2 2.14 m2 100 % 12/11/2019 9:32:00 AM 128 mm[Hg] 70 mm[Hg] 112 {beats}/min 16 rpm 98.7 F 98.4295 kg 66 in 35.0244 kg/m2 2.1409 m2 99 % 11/17/2019 3:26:00 [...] Tobacco Current some day smoker 07/29/2019 - [facility] Children lives with children History of Procedures [...] 05/17/2022 12:00 AM ALLERGEN SPECIFIC IGE Returned 05/30/2022 12:00 AM RADEX SPINE LUMBOSACRAL 2/3 VIEWS Return ed 05/31/2022 12:00 AM Decadron, Per 1 Mg [facility]# [address]-90 Re viewed 11/11/2013 12:00 AM IRON BINDING TEST Reviewed [...] 361 %Saturation Calc 14 Hepatitis C Quantitation 113593 HCV log10 5.504 01/01/2014 4:15 PM WBC [...] 11/27/2013 [employer] MSD GARDASIL [id number] Intramuscul ar Right Deltoid 11/27/2013 10/04/2012 62 Tdap 12/20/2017 Glaxo[employer]Kline SKB BOOSTRIX [id number] Intramuscular Right Arm 12/20/2017 05/21/2022 115 Influenza 02/11/2021 ID [employer] or [employer] BCQ Flulaval, quadrivalent, preservative free [id number] Intramuscular Right Deltoid 02/11/2021 12/24/2020 1 50 Tdap 03/28/2021 Gl[employer] SKB BOOSTRIX [id number] Intramuscular Right Deltoid 03/28/2021 12/24/2020 115 Tdap 03/28/2021 [employer] SKB BOOSTRIX [id number] Intramuscular Right Deltoid 03/28/2021 12/24/2020 115 History of Past Illness Name Date of Onset Comments Hypothyroidism, acquired 09/15/2015 Chronic hepatitis C without hepatic coma 05/23/2016 HSV I Thyroid Disorder Dragan 24 2014 10:20AM Hepatitis C Infection Nov 11 2013 [...] risk for intrapartum complications, second trimester Au g 2020 11:35AM Endocrine, nutritional and metabolic dis [...] Fracture of coccyx May 30 2022 10:47AM Urticaria May 31 2022 2:39PM Payers Insurance Name Company Name Plan Name Plan Number Policy Number [place] Group Number Start Date [place] Invoice Control Clerk Prog - RHC [place] Invoice Control Clerk Prog - RH C [id number] Monday, 2020 [place] Medical Assistance Program [place] [facility] [place] t[place] Prog [id number] N/A BCBS [employer] [place] [id number] 2013 [facility] [address] [facility] [id number] N/A [facility] [employer] [id number] N/A [employer] [id number] N/A [employer] [id number] N/A [facility] Med Occupational Medicine [id number] N/A [employer] [place] [id number] N/ A [employer] [place] [id number] N/ A History of Encounters Visit Date Visit Type Provider 05/31/2022 Office visit Nimco Oneill ORDER PACKER 05/30/2022 Office visit Nimco Oneill ORDER PACKER 05/17/2022 Office visit Nimco Oneill ORDER PACKER 05/02/2022 Office visit Nimco Oneill ORDER PACKER 04/22/2022 Office visit Karina Etienne ORDER PACKER 02/13/2022 Office visit Nimco Oneill ORDER PACKER 01/10/2022 Office visit Nimco Oneill ORDER PACKER 01/06/2022 Office visit Josette MASTERSON RN 01/05/2022 Office visit Nimco Oneill ORDER PACKER 08/24/2021 Office visit Toya MASTERSON RN 2021 Office visit Nimco Oneill ORDER PACKER 06/21/[address] Nafisa castro MD 05/10/[address] Nafisa castro MD 05/09/[address] Nafisa castro MD 05/02/2021 Office visit Meñojuliana Hsus M D 04/25/2021 Office visit Meñodeyanira Hsus M D 04/11/2021 Office visit Meñodeyanira Hsus M D 03/28/[address] Nafisa castro MD 03/11/2021 Office visit Meñodeyanira Marrero M D 02/11/2021 Office visit Meñojuliana Hsus M D 01/14/2021 Office visit Meñojuliana Hsus M D 12/16/2020 Office visit Meñojuliana Hsus M D 11/18/2020 Office visit Meñojuliana Gomezbrunes M D 10/21/2020 Office visit Meñojuliana Gomezbrcees M D 10/05/2020 Office visit Trupti Rodríguez n ORDER PACKER 09/13/2020 Office visit Nimco Oneill ORDER PACKER 06/29/2020 [facility] Ilan Santiago MD 06/22/2020 [facility] Ilan Santiago MD 06/22/2020 Office visit Nimco Walker ORDER PACKER 06/01/2020 Office visit Nimco Walker ORDER PACKER 05/28/2020 Office visit Nimco Walker ORDER PACKER 04/16/2020 Office visit Josette MASTERSON RN 04/13/2020 Office visit Toya MASTERSON RN 04/04/2020 Voided Trupti Rodríguez n ORDER PACKER 12/31/2019 Office visit Trupti andrews ORDER PACKER 12/23/2019 Office visit Nimco Walker ORDER PACKER 12/11/2019 Office visit Nimco Walker ORDER PACKER 11/20/2019 Voided Nimco Walker ORDER PACKER 11/17/2019 Office visit Nimco Walker ORDER PACKER 10/03/2019 Office visit Nimco Walker ORDER PACKER 09/03/2019 Office visit Josette MASTERSON RN 07/29/2019 Office visit Toya MASTERSON RN 04/09/2019 Office visit Concetta Duque [place] APR N 01/28/2019 Office visit Nimco Walker ORDER PACKER 11/22/2018 Office visit Toya MASTERSON RN 02/27/2018 Office visit Nimco Walker ORDER PACKER 02/23/2018 Office visit Toya [place] AP RN 12/20/2017 Office visit Nimco Walker ORDER PACKER 12/03/2017 Office visit Sebastián Quinteroran APR N 11/15/2017 Office visit Concetta Zeeong APR N 10/24/2017 Office visit Autumn MASTERSON RN 09/24/2017 Office visit Nimco Walker ORDER PACKER 08/30/2017 Office visit Nimco Walker ORDER PACKER 08/28/2017 Office visit Hannah Cardoza ORDER PACKER 07/31/2017 Office visit Sukh Knight NP 06/27/2017 Office visit Concetta Duque [place] APR N 05/22/2017 Office visit Nimco Walker ORDER PACKER 03/13/2017 Office visit Nimco Walker ORDER PACKER 03/06/2017 Office visit Concetta Duque [place] APR N 03/02/2017 Office visit Concetta Duque [place] APR N 02/15/2017 Office visit Nimco Walker ORDER PACKER 01/08/2017 Office visit Nimco Walker ORDER PACKER 10/20/2016 Office visit Concetta L. [place] APR N 10/17/2016 Office visit Nimco Walker ORDER PACKER 09/18/2016 Office visit Sebastián Lowery APR N 09/11/2016 Nurse visit Nimco Walker ORDER PACKER 07/10/2016 Office visit Nimco Walker ORDER PACKER 06/26/2016 Nurse visit Nimco Walker ORDER PACKER 06/09/2016 Office visit Nimco Walker ORDER PACKER 05/23/2016 Office visit Nimco Walker ORDER PACKER 10/25/2015 Office visit Sebastián Quinteroran APR N 10/22/2015 [facility] Milagros Alba MD 09/20/2015 Office visit Bernardino Adair MD 09/15/2015 Office visit Nimco Walker ORDER PACKER 03/17/2015 Office visit Nimco Walker ORDER PACKER 08/14/2014 Office visit Nimco Walker ORDER PACKER 07/28/2014 [facility] Katrina Deras MD 07/21/2014 Office visit Nimco Walker ORDER PACKER 07/17/2014 Office visit Nimco Walker ORDER PACKER 07/14/2014 Office visit Nimco Walker ORDER PACKER 07/11/2014 Office visit Sebastián Lowery APR N 11/27/2013 Office visit Nimco Walker ORDER PACKER 11/11/2013 Office visit Nimco Walker ORDER PACKER
--- OUTSIDE RECORDS SUMMARY | 2022-06-06 16:04 | XMS REPORT ---
Author Author Alicia Oneill [facility] Address [address] [place], [place] [id number] Care Team Providers Care E D Tech Name Role Phone Nimco Oneill PCP Nimco Oneill PreferredProvider Allergies and Adverse Reactions Name Reaction Notes morphine Vicodin Shell Fish (shrimp, crayfish, lobster, crab) Plan of Treatment Planned Activity Comments Planned Date Planned Time Plan/Goal Hepatitis C and hypothyroid 01/12/2021 12:45 PM TSH 01/28/2019 12:00 AM EKG. 06/22/2020 12:00 AM EKG. 06/29/2020 12:00 AM TSH 10/03/2021 12:00 AM SACRUM AND COCCYX,MINIMUM 2VWS 05/02/2022 12:00 AM Lumbar Spine 2 or 3 View - Clinic 05/02/2022 12:00 A M Fertility consult, has been attempting for more than 1yr . Medications Active Name Start Date Estimated Completion Date SIG Co mments Sprintec (28) 0.25-35 mg-mcg oral tablet 2021 07/04/19 take 1 tablet by oral route once daily for 84 days diclofenac sodium oral tablet,delayed release (DR/EC) 75 mg 04/20 take 1 tablet (75 mg) by oral route 2 times per day tramadol oral tablet 50 mg 05/02/2022 take 1 tablet (50 mg) by oral route every 6 hours as needed Name Start Date Expiration Date SIG Comments [...] 4 mg oral tablets,dose pack 04/16/2020 04/22/20 20 take by oral route as directed per [...] per day Depo-Provera 150 mg/mL intramuscular suspension Proctosol HC 2.5 % topical cream with [...] HC BMI BSA BMI Percentile O2 Sat(%) 05/02/2022 9:37:00 AM 118 mm[Hg] 86 mm[Hg] 84 {beats}/min 18 rpm 97.7 F 180.125 lbs 66 in 29.0726 kg/m2 1.9506 m2 100 % 04/22/2022 1:55:00 PM 99 {beats}/min 16 rpm 98.6 F 186.125 lbs 66 in 30.04 kg/m2 1.98 m2 100 % 02/13/2022 1:54:00 PM 120 mm[Hg] 86 mm[Hg] 89 {beats}/min 18 rpm 97.7 F 189.125 lbs 66 in 30.5253 kg/m2 1.9987 m2 99 % 01/10/2022 10:06:00 AM 112 mm[Hg] 70 mm[Hg] 83 {beats}/min 18 rpm 97.7 F 197.5 lbs 66 in 31.88 kg/m2 2.04 m2 99 % 01/06/2022 11:10:00 AM 120 mm[Hg] 60 mm[Hg] 81 {beats}/min 16 rpm 98.2 F 197 lbs 66 in 31.7963 kg/m2 2.0399 m2 100 % 01/05/2022 8:29:00 AM 110 mm[Hg] 78 mm[Hg] 85 {beats}/min 18 rpm 98.1 F 198.375 lbs 66 in 32.02 kg/m2 2.05 m2 100 % 08/24/2021 6:59:00 PM 112 mm[Hg] 78 mm[Hg] 79 {beats}/min 16 rpm 98.2 F 213.375 lbs 66 in 34.4393 kg/m2 2.123 m2 100 % 2021 1:49:00 PM 112 mm[Hg] 78 mm[Hg] 78 {beats}/min 20 rpm 97.7 F 213 lbs 66 in 34.38 kg/m2 2.12 m2 100 % 06/21/2021 3:43:00 PM 119 mm[Hg] 80 mm[Hg] 88 {beats}/min 98.1 F 210 lbs 65 in 34.95 kg/m2 2.0901 m2 10/05/2020 10:52:00 AM 115 mm[Hg] 73 mm[Hg] 83 {beats}/min 97.9 F 217 lbs 64 in 37.2476 kg/m2 2.11 m2 09/13/2020 2:46:00 PM 126 mm[Hg] 70 mm[Hg] 116 {beats}/min 16 rpm 98.1 F 214 lbs 66 in 34.54 kg/m2 2.1261 m2 100 % 06/22/2020 1:44:00 PM 122 mm[Hg] 72 mm[Hg] 69 {beats}/min 18 rpm 98.2 F 211 lbs 66 in 34.0559 kg/m2 2.11 m2 97 % 06/01/2020 10:17:00 AM 122 mm[Hg] 76 mm[Hg] 92 {beats}/min 18 rpm 97.9 F 214 lbs 66 in 34.54 kg/m2 2.1261 m2 98 % 05/28/2020 9:19:00 AM 138 mm[Hg] 72 mm[Hg] 105 {beats}/min 18 rpm 98.2 F 214 lbs 66 in 34.5401 kg/m2 2.13 m2 96 % 04/16/2020 6:07:00 PM 118 mm[Hg] 78 mm[Hg] 97 {beats}/min 18 rpm 99 F 207.375 lbs 66 in 33.47 kg/m2 2.0929 m2 99 % 04/13/2020 3:27:00 [...] Tobacco Current some day smoker 07/29/2019 - Single [facility] Children lives with children History of [...] 04/22/2022 12:00 AM THER/PROPH/DIAG INJ SC/IM Reviewed 11/11/2013 12:00 AM IRON BINDING TEST Reviewed [...] 361 %Saturation Calc 14 Hepatitis C Quantitation 275446 HCV log10 5.504 01/01/2014 4:15 PM WBC [...] 11/27/2013 [employer] MSD GARDASIL [id number] Intramuscul ar Right Deltoid 11/27/2013 10/04/2012 62 Tdap 12/20/2017 GlaxoSmithKline SKB BOOSTRIX [id number] Intramuscular Right Arm 12/20/2017 05/21/2021 115 Influenza 02/11/2021 ID [employer] [place] BCQ Flulaval, quadrivalent, preservative free [id number] Intramuscular Right Deltoid 02/11/2021 12/24/2020 1 50 Tdap 03/28/2021 Gl[employer] SKB BOOSTRIX [id number] Intramuscular Right Deltoid 03/28/2021 12/24/2020 115 Tdap 03/28/2021 [employer] SKB BOOSTRIX [id number] Intramuscular Right Deltoid 03/28/2021 [...] Fracture of coccyx May 02 2022 9:39AM Payers Insurance Name Company Name Plan Name Plan Number Policy Number [employer] cy Group Number Start Date [place] School Administrator Prog - RHC [place] School Administrator Prog - RH C [id number] Monday, 2020 [place] Medical Assistance Program [place] [facility] Earl tance Prog [id number] N/A BCBS [employer] Of [place] [id number] 2013 [facility] [address] [facility] [id number] N/A [employer] [id number] 52 N/A [employer] [id number] 52 N/A [employer] [id number] N/A [facility] Med Occupational Medicine [id number] N/A BCBS [employer] [place] [id number] N/ A BCBS [employer] [place] [id number] N/ A History of Encounters Visit Date Visit Type Provider 05/02/2022 Office visit Nimco Oneill HEALTH POLICY ANALYST 04/22/2022 Office visit Karina Etienne HEALTH POLICY ANALYST 02/13/2022 Office visit Nimco Oneill HEALTH POLICY ANALYST 01/10/2022 Office visit Nimco Oneill HEALTH POLICY ANALYST 01/06/2022 Office visit Josette MASTERSON RN 01/05/2022 Office visit Nimco Oneill HEALTH POLICY ANALYST 08/24/2021 Office visit Toya MASTERSON RN 2021 Office visit Nimco Oneill HEALTH POLICY ANALYST 06/21/[address] Nafisa castro MD 05/10/2021 [facility] Dr. Nafisa castro MD 05/09/[address] Nafisa castro MD 05/02/2021 Office visit Meño Marrero M D 04/25/2021 Office visit Meño Hsus M D 04/11/2021 Office visit Meño Marrero M D 03/28/[address] Nafisa castro MD 03/11/2021 Office visit Meño Hsus M D 02/11/2021 Office visit Meñodeyanira Hsus M D 01/14/2021 Office visit Meño Hsus M D 12/16/2020 Office visit Meñodeyanira Hsus M D 11/18/2020 Office visit Meño Hsus M D 10/21/2020 Office visit Meño Hsus M D 10/05/2020 Office visit Trupti Rodríguez n HEALTH POLICY ANALYST 09/13/2020 Office visit Nimco Oneill HEALTH POLICY ANALYST 06/29/2020 Hospital Ilan Santiago MD 06/22/2020 Hospital Ilan Santiago MD 06/22/2020 Office visit Nimco Walker HEALTH POLICY ANALYST 06/01/2020 Office visit Nimco Walker HEALTH POLICY ANALYST 05/28/2020 Office visit Nimco Walker HEALTH POLICY ANALYST 04/16/2020 Office visit Josette MASTERSON RN 04/13/2020 Office visit Toya MASTERSON RN 04/04/2020 Voided Trupti Rodríguez n HEALTH POLICY ANALYST 12/31/2019 Office visit Trupti Rodríguez n HEALTH POLICY ANALYST 12/23/2019 Office visit Nimco Oneill HEALTH POLICY ANALYST 12/11/2019 Office visit Nimco Walker HEALTH POLICY ANALYST 11/20/2019 Voided Nimco Walker HEALTH POLICY ANALYST 11/17/2019 Office visit Nimco Walker HEALTH POLICY ANALYST 10/03/2019 Office visit Nimco Walker HEALTH POLICY ANALYST 09/03/2019 Office visit Josette MASTERSON RN 07/29/2019 Office visit Toya MASTERSON RN 04/09/2019 Office visit Concetta Goldstein APR N 01/28/2019 Office visit Nimco Oneill HEALTH POLICY ANALYST 11/22/2018 Office visit Toya MASTERSON RN 02/27/2018 Office visit Nimco Nino HEALTH POLICY ANALYST 02/23/2018 Office visit Toya MASTERSON RN 12/20/2017 Office visit Nimco Walker HEALTH POLICY ANALYST 12/03/2017 Office visit Sebastián Lowery APR N 11/15/2017 Office visit Concetta Zeeong APR N 10/24/2017 Office visit Autumn MASTERSON RN 09/24/2017 Office visit Nimco Walker HEALTH POLICY ANALYST 08/30/2017 Office visit Nimco Walker HEALTH POLICY ANALYST 08/28/2017 Office visit Hannah Sony HEALTH POLICY ANALYST 07/31/2017 Office visit Sukh Knight NP 06/27/2017 Office visit Concetta Duque [place] APR N 05/22/2017 Office visit Nimco Walker HEALTH POLICY ANALYST 03/13/2017 Office visit Nimco Walker HEALTH POLICY ANALYST 03/06/2017 Office visit Concetta Duque [place] APR N 03/02/2017 Office visit Concetta Duque [place] APR N 02/15/2017 Office visit Nimco Walker HEALTH POLICY ANALYST 01/08/2017 Office visit Nimco Walker HEALTH POLICY ANALYST 10/20/2016 Office visit Concetta Duque [place] APR N 10/17/2016 Office visit Nimco Walker HEALTH POLICY ANALYST 09/18/2016 Office visit Sebastián Lowery APR N 09/11/2016 Nurse visit Nimco Walker HEALTH POLICY ANALYST 07/10/2016 Office visit Nimco Walker HEALTH POLICY ANALYST 06/26/2016 Nurse visit Nimco Walker HEALTH POLICY ANALYST 06/09/2016 Office visit Nimco Walker HEALTH POLICY ANALYST 05/23/2016 Office visit Nimco Walker HEALTH POLICY ANALYST 10/25/2015 Office visit Sebastián Lowery APR N 10/22/2015 [facility] Milagros Alba MD 09/20/2015 Office visit Bernardino Adair MD 09/15/2015 Office visit Nimco Walker HEALTH POLICY ANALYST 03/17/2015 Office visit Nimco Walker HEALTH POLICY ANALYST 08/14/2014 Office visit Nimco Walker HEALTH POLICY ANALYST 07/28/2014 [facility] Katrina Deras MD 07/21/2014 Office visit Nimco Walker HEALTH POLICY ANALYST 07/17/2014 Office visit Nimco Walker HEALTH POLICY ANALYST 07/14/2014 Office visit Nimco Walker HEALTH POLICY ANALYST 07/11/2014 Office visit Sebastián Lowery APR N 11/27/2013 Office visit Nimco Walker HEALTH POLICY ANALYST 11/11/2013 Office visit Nimco Walker HEALTH POLICY ANALYST
--- OUTSIDE RECORDS SUMMARY | 2022-06-06 16:04 | XMS REPORT ---
Author Author Alicia Etienne [facility] Address [address] [place], [place] [id number] Care Team Providers Care Radio News Writer Name Role Phone Karina Etienne PCP Unavailable Nimco Oneill PreferredProvider Allergies and Adverse Reactions [...] oral route once daily for 84 days Name Start Date Expiration Date SIG Comments [...] HC BMI BSA BMI Percentile O2 Sat(%) 04/22/2022 1:55:00 PM 99 {beats}/min 16 rpm 98.6 F 186.125 lbs 66 in 30.0411 kg/m2 1.9828 m2 100 % 02/13/2022 1:54:00 PM 120 mm[Hg] 86 mm[Hg] 89 {beats}/min 18 rpm 97.7 F 189.125 lbs 66 in 30.53 kg/m2 2.00 m2 99 % 01/10/2022 10:06:00 AM 112 mm[Hg] 70 mm[Hg] 83 {beats}/min 18 rpm 97.7 F 197.5 lbs 66 in 31.877 kg/m2 2.0425 m2 99 % 01/06/2022 11:10:00 AM 120 mm[Hg] 60 mm[Hg] 81 {beats}/min 16 rpm 98.2 F 197 lbs 66 in 31.80 kg/m2 2.04 m2 100 % 01/05/2022 8:29:00 AM 110 mm[Hg] 78 mm[Hg] 85 {beats}/min 18 rpm 98.1 F 198.375 lbs 66 in 32.0182 kg/m2 2.047 m2 100 % 08/24/2021 6:59:00 PM 112 mm[Hg] 78 mm[Hg] 79 {beats}/min 16 rpm 98.2 F 213.375 lbs 66 in 34.44 kg/m2 2.12 m2 100 % 2021 1:49:00 PM 112 mm[Hg] 78 mm[Hg] 78 {beats}/min 20 rpm 97.7 F 213 lbs 66 in 34.3787 kg/m2 2.1211 m2 100 [...] Tobacco Current some day smoker 07/29/2019 - [facility] Children lives with children History of Procedures [...] UNI 2 VIEWS Returned 04/22/2022 12:00 AM THER/PROPH/DIAG INJ SC/IM Reviewed [...] 361 %Saturation Calc 14 Hepatitis C Quantitation 504366 HCV log10 5.504 01/01/2014 4:15 PM WBC [...] 11/27/2013 [employer] 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 Fatigue Jul [...] in multigravida in first trimester Nov 18 021 11:04AM Encounter for supervision of normal [...] 1:55PM Allergic dermatitis Apr 22 2022 1:57PM Payers Insurance Name Company Name Plan Name Plan Number Policy Number Burak cy Group Number Start Date [facility] Asst Prog - RHC [facility] Asst Prog - RH C [id number] Monday, 2020 [place] [employer] [facility] Earl ellie Pro [id number] N/A [employer] [place] [id number] , 2013 [facility] [id number] [facility] [id number] N/A [employer] [id number] N/A [employer] [id number] N/A [employer] [id number] N/A [facility] Med Occupational Medicine [id number] N/A [employer] [place] [id number] N/ A [employer] [place] [id number] N/ A History of Encounters Visit Date Visit Type Provider 04/22/2022 Office visit Karina Etienne SCHOOL BUS DRIVER/MECHANIC 02/13/2022 Office visit Nimco Oneill SCHOOL BUS DRIVER/MECHANIC 01/10/2022 Office visit Nimco Oneill SCHOOL BUS DRIVER/MECHANIC 01/06/2022 Office visit Josette MASTERSON RN 01/05/2022 Office visit Nimco Oneill SCHOOL BUS DRIVER/MECHANIC 08/24/2021 Office visit Toya MASTERSON RN 2021 Office visit Nimco Oneill SCHOOL BUS DRIVER/MECHANIC 06/21/[address] Nafisa castro MD 05/10/[address] [facility] [address] Nafisa castro MD 05/09/[address] Nafisa castro MD 05/02/2021 Office visit Meño Gaines D 04/25/2021 Office visit Meño Gaines D 04/11/2021 Office visit Meño Castro 03/28/[address] Nafisa castro MD 03/11/2021 Office visit Meño Gaines D 02/11/2021 Office visit Meño Gaines D 01/14/2021 Office visit Meño Gaines D 12/16/2020 Office visit Meño Gaines D 11/18/2020 Office visit Meño Gaines D 10/21/2020 Office visit Meño Gaines D 10/05/2020 Office visit Trupti andrews SCHOOL BUS DRIVER/MECHANIC 09/13/2020 Office visit Nimco Walker SCHOOL BUS DRIVER/MECHANIC 06/29/2020 Hospital Ilan Santiago MD 06/22/2020 Hospital Ilan Santiago MD 06/22/2020 Office visit Nimco Walker SCHOOL BUS DRIVER/MECHANIC 06/01/2020 Office visit Nimco Walker SCHOOL BUS DRIVER/MECHANIC 05/28/2020 Office visit Nimco Walker SCHOOL BUS DRIVER/MECHANIC 04/16/2020 Office visit Josette MASTERSON RN 04/13/2020 Office visit oTya MASTERSON RN 04/04/2020 Voided Trupti Hinespso n SCHOOL BUS DRIVER/MECHANIC 12/31/2019 Office visit Trupti Hyde Thompso n SCHOOL BUS DRIVER/MECHANIC 12/23/2019 Office visit Nimco Walker SCHOOL BUS DRIVER/MECHANIC 12/11/2019 Office visit Nimco Walker SCHOOL BUS DRIVER/MECHANIC 11/20/2019 Voided Nimco Walker SCHOOL BUS DRIVER/MECHANIC 11/17/2019 Office visit Nimco Walker SCHOOL BUS DRIVER/MECHANIC 10/03/2019 Office visit Nimco Walker SCHOOL BUS DRIVER/MECHANIC 09/03/2019 Office visit Josette MASTERSON RN 07/29/2019 Office visit Toya MASTERSON RN 04/09/2019 Office visit Concetta L. [place] APR N 01/28/2019 Office visit Nimco Walker SCHOOL BUS DRIVER/MECHANIC 11/22/2018 Office visit Toya MASTERSON RN 02/27/2018 Office visit Nimco Walker SCHOOL BUS DRIVER/MECHANIC 02/23/2018 Office visit Toya MASTERSON RN 12/20/2017 Office visit Nimco Walker SCHOOL BUS DRIVER/MECHANIC 12/03/2017 Office visit Sebastián Lowery APR N 11/15/2017 Office visit Concetta L. [place] APR N 10/24/2017 Office visit Autumn MASTERSON RN 09/24/2017 Office visit Nimco Walker SCHOOL BUS DRIVER/MECHANIC 08/30/2017 Office visit Nimco Walker SCHOOL BUS DRIVER/MECHANIC 08/28/2017 Office visit Hannah Cardoza SCHOOL BUS DRIVER/MECHANIC 07/31/2017 Office visit Sukh Knight NP 06/27/2017 Office visit Concetta L. [place] APR N 05/22/2017 Office visit Nimco Walker SCHOOL BUS DRIVER/MECHANIC 03/13/2017 Office visit Nimco Walker SCHOOL BUS DRIVER/MECHANIC 03/06/2017 Office visit Concetta L. [place] APR N 03/02/2017 Office visit Concetta L. [place] APR N 02/15/2017 Office visit Nimco Walker SCHOOL BUS DRIVER/MECHANIC 01/08/2017 Office visit Nimco Walker SCHOOL BUS DRIVER/MECHANIC 10/20/2016 Office visit Concetta L. [place] APR N 10/17/2016 Office visit Nimco Walker SCHOOL BUS DRIVER/MECHANIC 09/18/2016 Office visit Sebastián Lowery APR N 09/11/2016 Nurse visit Nimco Oneill SCHOOL BUS DRIVER/MECHANIC 07/10/2016 Office visit Nimco Oneill SCHOOL BUS DRIVER/MECHANIC 06/26/2016 Nurse visit Nimco Oneill SCHOOL BUS DRIVER/MECHANIC 06/09/2016 Office visit Nimco Oneill SCHOOL BUS DRIVER/MECHANIC 05/23/2016 Office visit Nimco Oneill SCHOOL BUS DRIVER/MECHANIC 10/25/2015 Office visit Sebastián Lowery APR N 10/22/2015 [facility] Milagros Alba MD 09/20/2015 Office visit Bernardino Adair MD 09/15/2015 Office visit Nimco Oneill SCHOOL BUS DRIVER/MECHANIC 03/17/2015 Office visit Nimco Oneill SCHOOL BUS DRIVER/MECHANIC 08/14/2014 Office visit Nimco Oneill SCHOOL BUS DRIVER/MECHANIC 07/28/2014 [facility] Katrina Deras MD 07/21/2014 Office visit Nimco Oneill SCHOOL BUS DRIVER/MECHANIC 07/17/2014 Office visit Nimco Oneill SCHOOL BUS DRIVER/MECHANIC 07/14/2014 Office visit Nimco Oneill SCHOOL BUS DRIVER/MECHANIC 07/11/2014 Office visit Sebastián Lowery APR N 11/27/2013 Office visit Nimco Oneill SCHOOL BUS DRIVER/MECHANIC 11/11/2013 Office visit Nimco Oneill SCHOOL BUS DRIVER/MECHANIC
[2022-06-06 16:07] VITALS: BP 125/70
[2022-06-06] MEDS: LACTULOSE SYRUP 10GM/15ML (ENULOSE) 30ML UDC PO PRN (16:45)
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
[2022-06-06 19:25] VITALS: BP 116/83
[2022-06-06] MEDS: DOCUSATE SODIUM 100 MG (COLACE) CAP PO SCH (20:12)
[2022-06-06] MEDS: polyethylene glycoL POWDER 17 GM (MIRALAX) PACK PO SCH (20:13)
[2022-06-06] MEDS: APIXABAN 2.5 MG (ELIQUIS) TABLET PO SCH (20:13)
[2022-06-06] MEDS: SENNA W/DOCUSATE (SENOKOT S) TABLET PO SCH (20:13)
[2022-06-06] MEDS ORDERED: NON-FORMULARY MEDICATION 1 EA EA (Diclofenac Sodium 75 MG) PO SCH (21:00)
[2022-06-06] MEDS: CYCLOBENZAPRINE 10 MG (FLEXERIL) TAB PO PRN (21:13)
[2022-06-07 05:38] LABS: BASOPHILS % (AUTO) 0 % (0-10); EOSINOPHILS # (AUTO) 0.4 10^3/uL (0.0-0.3); EOSINOPHILS % (AUTO) 5 % (0-10); HEMATOCRIT 35 % (35-52); HEMOGLOBIN 11.4 g/dL (11.5-16.0); LYMPHOCYTES # (AUTO) 1.4 10^3/uL (1.0-4.0); LYMPHOCYTES % (AUTO) 15 % (12-44); MEAN CORPUSCULAR HEMOGLOBIN 30 pg (25-34); MEAN CORPUSCULAR HGB CONC 33 g/dL (32-36); MEAN CORPUSCULAR VOLUME 90 fL (80-99); MEAN PLATELET VOLUME 10.3 fL (9.0-12.2); MONOCYTES # (AUTO) 0.7 10^3/uL (0.0-1.0); MONOCYTES % (AUTO) 8 % (0-12); NEUTROPHILS # (AUTO) 6.4 10^3/uL (1.8-7.8); NEUTROPHILS % (AUTO) 71 % (42-75); PLATELET COUNT 284 10^3/uL (130-400); WHITE BLOOD COUNT 9.1 10^3/uL (4.3-11.0)
[2022-06-07 05:41] LABS: ALBUMIN 3.4 GM/DL (3.2-4.5)
[2022-06-07 05:42] LABS: POTASSIUM 4.2 MMOL/L (3.6-5.0)
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
[2022-06-07 05:44] LABS: TOTAL PROTEIN 6.6 GM/DL (6.4-8.2)
[2022-06-07 05:46] LABS: BILIRUBIN,TOTAL 0.6 MG/DL (0.1-1.0)
[2022-06-07 05:48] LABS: CREATININE SERUM 0.7 MG/DL (0.60-1.30)
[2022-06-07] MEDS: CYCLOBENZAPRINE 10 MG (FLEXERIL) TAB PO PRN ×3 (05:57→21:20)
[2022-06-07] MEDS ORDERED: LEVOTHYROXINE 112 MCG (LEVOTHROID) TAB PO SCH (06:30)
[2022-06-07] MEDS ORDERED: LEVOTHYROXINE 25 MCG (LEVOTHROID) TAB PO SCH (06:30)
[2022-06-07 07:13] VITALS: BP 123/84
[2022-06-07] MEDS: DOCUSATE SODIUM 100 MG (COLACE) CAP PO SCH ×2 (07:57→21:20)
[2022-06-07] MEDS: APIXABAN 2.5 MG (ELIQUIS) TABLET PO SCH ×2 (07:57→21:20)
[2022-06-07] MEDS: SENNA W/DOCUSATE (SENOKOT S) TABLET PO SCH ×2 (07:57→21:20)
[2022-06-07] MEDS: polyethylene glycoL POWDER 17 GM (MIRALAX) PACK PO SCH ×2 (07:58→21:20)
[2022-06-07] MEDS ORDERED: NON-FORMULARY MEDICATION 1 EA EA (Levothyroxine Sodium 137 MCG) PO SCH (09:00)
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
[2022-06-07] MEDS: ACETAMINOPHEN 325 MG TABLET PO PRN ×2 (09:47→14:36)
--- NOTE | 2022-06-07 10:32 | Physical Therapy Daily Note ---
PT Daily Note-Current Subjective Pt. agrees to Rx. Pt. rates pain in Left hip and knee at 6/10 . Pt. requested Tylenol for her pain. It was dispensed by nursing. Pt. is pleased with her progress and function today Pain Numeric Pain Scale: 6 Location: Left Location Body Site: Knee (and hip) Pain Description: Ache Section J - Health Conditions 1. Rarely or not at all 2. Occasionally 3. Frequently 4. Almost constantly 8. Unable to answer Pain Effect on Sleep: 2 Pain Interference with Therapy: 3 Pain Interference w/Day-to-Day: 2 Mental Status Patient Orientation: Normal For Age Attachments: Other-See Comments (knee immoblizer right knee) Transfers SCALE: Activities may be completed with or without assistive devices. 4-Kotmwjnhyw-ofpyvut completes the activity by him/herself with no assistance from a helper. 5-Set-up or Clean-up Assistance-helper sets up or cleans up; patient completes activity. Council assists only prior to or following the activity. 4-Supervision or Touching Assistance-helper provides verbal cues and/or touching/steadying and/or contact guard assistance as patient completes activity. Assistance may be provided throughout the activity or intermittently. 3-Partial/Moderate Assistance-helper does LESS THAN HALF the effort. Council lifts, holds or supports trunk or limbs, but provides less than half the effort. 2-Substantial/Maximal Assistance-helper does MORE THAN HALF the effort. Council lifts or holds trunk or limbs and provides more than half the effort. 7-Mdwehrvqz-fvudwc does ALL the effort. Patient does none of the effort to complete the activity. Or, the assistance of 2 or more helpers is required for the patient to complete the activity. If activity was not attempted, code reason: 7-Patient Refused. 9-Not Applicable-not attempted and the patient did not perform the activity before the current illness, exacerbation or injury. 10-Not Attempted due to Environmental Limitations-(lack of equipment, weather restraints, etc.). 88-Not Attempted due to Medical Conditions or Safety Concerns. Sit to Stand (QC): 4 Chair/Htl-dn-Gbvky Xfer(QC): 4 much work and instruction done this date on sit to stand technique, adjusted height etc. Pts w/c seat was elevated with cushioning and this allowed pt. to sit to stand with SBA to CGA multiple trials. Pt also performed SPT w/c to Rx table to w/c using FWW x 3 trials with good technique and CGA to SBA Weight Bearing Right Lower Extremity: Right Weight Bearing/Tolerated Left Lower Extremity: Left Touch Toe Bearing Right knee immobilizer to be donned during OOB activiy Gait Training Does the Patient Walk?: Yes Walk 10 feet (QC): 4 Gait Persons Needed: 1 Gait Assistive Device: FWW pt. began in // bars managing her wt bearing as per orders and needing only instruction 8 ft x 1, pt was then brought outside // bars and instructed in gait with FWW 10 ft x 2 followed by w/c, maintaining proper wt bearing status CGA Wheelchair Training Does the Pt Use a Wheelchair?: Yes Wheel 50 ft with 2 turns (QC): 6 Wheel 150 ft (QC): 6 Type of Wheelchair: Manual pt. demonstrated ability to move forward and backward in small spaces . LEs bilat elevated , pt. also locks brakes indep Exercises Supine Ex: Ankle pumps, Quad Set Supine Reps: 12 Seated Therapy Exercises: Ankle pumps, Sit to stand, Long arc quads (L) Seated Reps: 15 Treatments co Rx with OT for shower TRFs requiring slide brd and assist of 2, shower seating surfaces very low etc, after pt. was assisted at mod to max of 2 for T RFs then seating height was raised and pt. managed much better with sit to stand etc. Assessment Current Status: Good Progress marked progress with regards to sit to stand, gait with FWW, and SPTs , pt. gives full effort and is motivated PT Short Term Goals Short Term Goals Time Frame: Jun 13, 2022 Roll Left & Right: 4 Sit to lyin Lying to sitting on side of be: 4 Sit to stand: 3 Chair/kmy-ap-dapkn transfer: 3 Toilet transfer: 3 Car transfer: 3 Does pt use a wc or scooter: Yes Wheel 50ft w/2 turns: 6 Wheel 150 feet: 6 Type: Manual PT Fci Goals Fci Goals PT Manager Copy Goals Time Frame: Jul 01, 2022 Roll Left & Right (QC): 6 Sit to Lying (QC): 6 Lying-Sitting on Side/Bed(QC): 6 Sit to Stand (QC): 6 Chair/Acm-gx-Ployq Xfer(QC): 6 Toilet Transfer (QC): 6 Car Transfer (QC): 6 Does the Patient Walk: No and Walking Goal IS indicated Walk 10 feet (QC): 2 Walk 50ft with 2 Turns (QC): 2 Walk 150 ft (QC): 88 Walking 10ft on Uneven Surface: 2 1 Step (curb) (QC): 88 4 Steps (QC): 88 12 Steps (QC): 88 Picking up an Object (QC): 3 Does the Pt use WC or Scooter?: Yes Wheel 50 feet with 2 turns (QC: 6 Type: Manual Wheel 150 feet: 6 Type: Manual PT Plan Treatment/Plan Treatment Plan: Continue Plan of Care Treatment Plan: Bed Mobility, Education, Functional Activity Rob[place], Functional Strength, Group Therapy, Gait, Safety, Therapeutic Exercise, Transfers Treatment Duration: Jul 15, 2022 Frequency: At least 5 of 7 days/Wk (IRF) Estimated Hrs Per Day: 1.5 hours per day Patient and/or Family Agrees t: Yes Safety Risks/Education Patient Education: Gait Training, Transfer Techniques, Correct Positioning, W/C Management, Reviewed Don/Doff Brace (immoblizer), Disease Process, Safety Issues Teaching Recipient: Patient Teaching Methods: Demonstration, Discussion Response to Teaching: Verbalize Understanding, Return Demonstration, Reinforcem ent Needed Time Time In: 900 Time Out: 1030 DATE: Jun 07, 2022 Total Billed Treatment Time: 90 Total Billed Treatment 1,EX20m,FA35m,GT25m,WC10m MINA HANCOCK [employer] INTEGRATION ARCHITECT Jun 07, 2022 10:32
[2022-06-07] MEDS: NICOTINE 21 MG (NICODERM) PATCH TD SCH (11:27)
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
[2022-06-07] MEDS: ALPRAZolam 0.25 MG (XANAX) TAB PO PRN (20:35)
[2022-06-07 20:45] VITALS: BP 132/89
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
[2022-06-08] MEDS: LEVOTHYROXINE 150 MCG (LEVOTHROID) TAB PO SCH (05:52)
[2022-06-08 07:06] VITALS: BP 121/86
[2022-06-08] MEDS: APIXABAN 2.5 MG (ELIQUIS) TABLET PO SCH ×2 (07:59→20:11)
[2022-06-08] MEDS: NICOTINE 21 MG (NICODERM) PATCH TD SCH (08:00)
[2022-06-08] MEDS: NICOTINE PATCH REMOVAL TP SCH (08:00)
[2022-06-08] MEDS: SENNA W/DOCUSATE (SENOKOT S) TABLET PO SCH ×2 (08:00→20:11)
[2022-06-08] MEDS: DOCUSATE SODIUM 100 MG (COLACE) CAP PO SCH ×2 (08:00→20:11)
[2022-06-08] MEDS: polyethylene glycoL POWDER 17 GM (MIRALAX) PACK PO SCH ×2 (08:00→21:36)
--- NOTE | 2022-06-08 10:46 | Occupational Ther Daily Note ---
OT Current Status-Daily Note Subjective Pt alert, sitting on BSC. Pt agrees to therapy. Pt requests pain pill, reported to nrsg. SO in room. Mental Status/Objective Patient Orientation: Person, Place, Time, Situation Attachments: IV, Knee Immobilizer ADL-Treatment Pt utilizing client engagement specialist and sock aide for lower body dressing. Leg bulldozer/loader/compactor/scraper placed in room for pt to try while completing bed mobility. Sit <--> stand completed from raised surfaces-CGA for safety. CGA for SPT using FWW. Min A for toileting, pt completes clothing management and alvino care hygiene, assist to cleanse buttocks. Pt used client engagement specialist to don pants, SBA to manipulate pants. Assist to don/doff knee immobilizer. Dance Choreographer to doff socks, sock aide to don socks. Set up for upper body dressing. Sitting at sink, to complete oral care independently. Pt and taken to central bathing for education on tub transfer bench. Pt will need transfer bench at home due to inability to step in/out of tub safely. After session, pt sitting in w/c with call light/phone in reach. All needs met in room. Therapy Code Descriptions/Definitions Functional [place] Measure: 0=Not Assessed/NA 4=Minimal Assistance 1=Total Assistance 5=Supervision or Setup 2=Maximal Assistance 6=Modified [place] 3=Moderate Assistance 7=Complete IndependenceSCALE: Activities may be completed with or without assistive devices. 5-Xecmmrbzxi-uwpndzl completes the activity by him/herself with no assistance from a helper. 5-Set-up or Clean-up Assistance-helper sets up or cleans up; patient completes activity. [place] assists only prior to or following the activity. 4-Supervision or Touching Assistance-helper provides verbal cues and/or touchi ng/steadying and/or contact guard assistance as patient completes activity. Assistance may be provided throughout the activity or intermittently. 3-Partial/Moderate Assistance-helper does LESS THAN HALF the effort. [place] lifts, holds or supports trunk or limbs, but provides less than half the effort. 2-Substantial/Maximal Assistance-helper does MORE THAN HALF the effort. [place] lifts or holds trunk or limbs and provides more than half the effort. 6-Wgjibarwo-ovlsdl does ALL the effort. Patient does none of the effort to complete the activity. Or, the assistance of 2 or more helpers is required for the patient to complete the activity. If activity was not attempted, code reason: 7-Patient Refused. 9-Not Applicable-not attempted and the patient did not perform the activity before the current illness, exacerbation or injury. 10-Not Attempted due to Environmental Limitations-(lack of equipment, weather restraints, etc.). 88-Not Attempted due to Medical Conditions or Safety Concerns. Oral Hygiene (QC): 6 Upper Body Dressing (QC): 5 Lower Body Dressing (QC): 2 (clothing-CGA, knee immobilizer max A) On/Off Footwear: 5 Toileting Hygiene (QC): 3 Toilet Transfer (QC): 4 OT Short Term Goals Short Term Goals Time Frame: Jun 14, 2022 Eatin Oral hygiene: 5 Toileting hygiene: 4 Shower/bathe self: 4 Upper body dressin Lower body dressin (With AE) Putting on/taking off footwear: 4 (With AE) OT Longterm Goals Longterm Goals Time Frame: Jun 21, 2022 Acute change in mental status: 0 Inattention: 0 Disorganized thinkin Altered level of consciousness: 0 Eating (QC): 6 Oral Hygiene (QC): 6 Toileting Hygiene (QC): 6 Shower/Bathe Self (QC): 5 Upper Body Dressing (QC): 6 Lower Body Dressing (QC): 6 (With AE) On/Off Footwear (QC): 6 (With AE) Additional Goals: 1-Demonstrate ADL Tasks, 2-Verbalize Understanding, 3- ImproveStrength/Robel 1=Demonstrate adherence to instructed precautions during ADL tasks. 2=Patient will verbalize/demonstrate understanding of assistive devices/modifications for ADL. 3=Patient will improve strength/tolerance for activity to enable patient to perform ADL's. OT Education/Plan Problem List/Assessment Assessment: Impaired Self-Care Skills Discharge Recommendations Plan/Recommendations: Continue POC Treatment Plan/Plan of Care Patient would benefit from OT for education, treatment and training to promote independence in ADL's, mobility, safety and/or upper extremity function for ADL's. Plan of Care: ADL Retraining, Functional Mobility, UE Funct Exercise/Act Treatment Duration: Jun 21, 2022 Frequency: At least 5 of 7 days/Wk (IRF) Estimated Hrs Per Day: 1.5 hours per day Agreement: Yes Rehab Potential: Good Time Start Time: 09:00 Stop Time: 10:00 DATE: Jun 08, 2022 Total Time Billed (hr/min): 60 Billed Treatment Time 1 visit-ADL 3 (50 min) FA 1 (10 min) KELLY PUTNAM Jun 08, 2022 10:46
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
[2022-06-08] MEDS: CYCLOBENZAPRINE 10 MG (FLEXERIL) TAB PO PRN ×2 (13:38→20:11)
--- NOTE | 2022-06-08 14:09 | Occupational Ther Daily Note ---
OT Current Status-Daily Note Subjective Pt alert, sitting in w/c. Pt agrees to therapy. Pt requests meds from [facility]. Mental Status/Objective Patient Orientation: Person, Place, Time, Situation Attachments: Knee Immobilizer ADL-Treatment Therapy Code Descriptions/Definitions Functional [place] Measure: 0=Not Assessed/NA 4=Minimal Assistance 1=Total Assistance 5=Supervision or Setup 2=Maximal Assistance 6=Modified [place] 3=Moderate Assistance 7=Complete IndependenceSCALE: Activities may be completed with or without assistive devices. 2-Ktnvfylwsy-slvetgq completes the activity by him/herself with no assistance from a helper. 5-Set-up or Clean-up Assistance-helper sets up or cleans up; patient completes activity. [place] assists only prior to or following the activity. 4-Supervision or Touching Assistance-helper provides verbal cues and/or touching/steadying and/or contact guard assistance as patient completes activity. Assistance may be provided throughout the activity or intermittently. 3-Partial/Moderate Assistance-helper does LESS THAN HALF the effort. [place] lifts, holds or supports trunk or limbs, but provides less than half the effort. 2-Substantial/Maximal Assistance-helper does MORE THAN HALF the effort. [place] lifts or holds trunk or limbs and provides more than half the effort. 8-Bgqscpxjs-ezhgly does ALL the effort. Patient does none of the effort to complete the activity. Or, the assistance of 2 or more helpers is required for the patient to complete the activity. If activity was not attempted, code reason: 7-Patient Refused. 9-Not Applicable-not attempted and the patient did not perform the activity before the current illness, exacerbation or injury. 10-Not Attempted due to Environmental Limitations-(lack of equipment, weather restraints, etc.). 88-Not Attempted due to Medical Conditions or Safety Concerns. Other Treatment Pt propels self to/from therapy gym/room independently. Pt completes B UE exercises to increase strength for daily functional tasks. Pt tolerated well. Medium resistance theraband given and pt educated on use. Pt demonstrates understanding. After session, pt sitting in w/c with call light/phone in reach. All needs met in room. OT Short Term Goals Short Term Goals Time Frame: Jun 14, 2022 Eatin Oral hygiene: 5 Toileting hygiene: 4 Shower/bathe self: 4 Upper body dressin Lower body dressin (With AE) Putting on/taking off footwear: 4 (With AE) OT Raw Sampler Goals Senior Living Goals Time Frame: Jun 21, 2022 Acute change in mental status: 0 Inattention: 0 Disorganized thinkin Altered level of consciousness: 0 Eating (QC): 6 Oral Hygiene (QC): 6 Toileting Hygiene (QC): 6 Shower/Bathe Self (QC): 5 Upper Body Dressing (QC): 6 Lower Body Dressing (QC): 6 (With AE) On/Off Footwear (QC): 6 (With AE) Additional Goals: 1-Demonstrate ADL Tasks, 2-Verbalize Understanding, 3- ImproveStrength/Robel 1=Demonstrate adherence to instructed precautions during ADL tasks. 2=Patient will verbalize/demonstrate understanding of assistive devices/modifications for ADL. 3=Patient will improve strength/tolerance for activity to enable patient to perform ADL's. OT Education/Plan Problem List/Assessment Assessment: Decreased UE Strength, Impaired Self-Care Skills Discharge Recommendations Plan/Recommendations: Continue POC Treatment Plan/Plan of Care Patient would benefit from OT for education, treatment and training to promote independence in ADL's, mobility, safety and/or upper extremity function for ADL's. Plan of Care: ADL Retraining, Functional Mobility, UE Funct Exercise/Act Treatment Duration: Jun 21, 2022 Frequency: At least 5 of 7 days/Wk (IRF) Estimated Hrs Per Day: 1.5 hours per day Agreement: Yes Rehab Potential: Good Time Start Time: 13:30 Stop Time: 14:00 DATE: Jun 08, 2022 Total Time Billed (hr/min): 30 Billed Treatment Time 1 visit-EX 2 (30 min) KELLY PUTNAM Jun 08, 2022 14:09
[2022-06-08] MEDS: ALPRAZolam 0.25 MG (XANAX) TAB PO PRN (17:18)
[2022-06-08 20:07] VITALS: BP 122/81
[2022-06-08] MEDS: ETODOLAC 300 MG (LODINE) CAP PO PRN (20:18)
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
[2022-06-09] MEDS: LEVOTHYROXINE 150 MCG (LEVOTHROID) TAB PO SCH (06:50)
[2022-06-09 07:30] VITALS: BP 136/88
--- NOTE | 2022-06-09 07:44 | Occupational Ther Daily Note ---
OT Current Status-Daily Note Subjective Pt alert, sitting on BSC. Pt agrees to therapy. Pt c/o spasms and rib pain, already received medication. Mental Status/Objective Patient Orientation: Person, Place, Time, Situation Attachments: Knee Immobilizer ADL-Treatment Therapy Code Descriptions/Definitions Functional [place] Measure: 0=Not Assessed/NA 4=Minimal Assistance 1=Total Assistance 5=Supervision or Setup 2=Maximal Assistance 6=Modified [place] 3=Moderate Assistance 7=Complete IndependenceSCALE: Activities may be completed with or without assistive devices. 3-Yqkswonsld-fzpoops completes the activity by him/herself with no assistance from a helper. 5-Set-up or Clean-up Assistance-helper sets up or cleans up; patient completes activity. [place] assists only prior to or following the activity. 4-Supervision or Touching Assistance-helper provides verbal cues and/or touching/steadying and/or contact guard assistance as patient completes activity. Assistance may be provided throughout the activity or intermittently. 3-Partial/Moderate Assistance-helper does LESS THAN HALF the effort. [place] lifts, holds or supports trunk or limbs, but provides less than half the effort. 2-Substantial/Maximal Assistance-helper does MORE THAN HALF the effort. [place] lifts or holds trunk or limbs and provides more than half the effort. 3-Nsttztdud-tuvetq does ALL the effort. Patient does none of the effort to complete the activity. Or, the assistance of 2 or more helpers is required for the patient to complete the activity. If activity was not attempted, code reason: 7-Patient Refused. 9-Not Applicable-not attempted and the patient did not perform the activity before the current illness, exacerbation or injury. 10-Not Attempted due to Environmental Limitations-(lack of equipment, weather restraints, etc.). 88-Not Attempted due to Medical Conditions or Safety Concerns. Eating (QC): 6 (Independent with eating.) Toileting Hygiene (QC): 4 (SBA for safety, pt completes all hygiene and clothing manipulation by self.) Other Treatment Pt using leg steel molder for bed mobility and to move L LE with less pain. Padding placed on pt's R elbow for comfort and prevent skin breakdown. Padding placed on BSC seat for comfort and prevent skin irritation while toileting. After session, pt sitting in w/c eating breakfast. Call light/phone in reach. All needs met in room. OT Short Term Goals Short Term Goals Time Frame: Jun 14, 2022 Eatin Oral hygiene: 5 Toileting hygiene: 4 Shower/bathe self: 4 Upper body dressin Lower body dressin (With AE) Putting on/taking off footwear: 4 (With AE) OT Usp Goals Interlocking Tower Operator Goals Time Frame: Jun 21, 2022 Acute change in mental status: 0 Inattention: 0 Disorganized thinkin Altered level of consciousness: 0 Eating (QC): 6 Oral Hygiene (QC): 6 Toileting Hygiene (QC): 6 Shower/Bathe Self (QC): 5 Upper Body Dressing (QC): 6 Lower Body Dressing (QC): 6 (With AE) On/Off Footwear (QC): 6 (With AE) Additional Goals: 1-Demonstrate ADL Tasks, 2-Verbalize Understanding, 3-Improv eStrength/Robel 1=Demonstrate adherence to instructed precautions during ADL tasks. 2=Patient will verbalize/demonstrate understanding of assistive devices/modifications for ADL. 3=Patient will improve strength/tolerance for activity to enable patient to p erform ADL's. OT Education/Plan Problem List/Assessment Assessment: Impaired Funct Balance, Impaired Self-Care Skills Discharge Recommendations Plan/Recommendations: Continue POC Treatment Plan/Plan of Care Patient would benefit from OT for education, treatment and training to promote independence in ADL's, mobility, safety and/or upper extremity function for ADL's. Plan of Care: ADL Retraining, Functional Mobility, UE Funct Exercise/Act Treatment Duration: Jun 21, 2022 Frequency: At least 5 of 7 days/Wk (IRF) Estimated Hrs Per Day: 1.5 hours per day Agreement: Yes Rehab Potential: Good Time Start Time: 07:15 Stop Time: 07:45 DATE: Jun 09, 2022 Total Time Billed (hr/min): 30 Billed Treatment Time 1 visit-ADL 2 (30 min) KELLY PUTNAM Jun 09, 2022 07:44
[2022-06-09] MEDS: SENNA W/DOCUSATE (SENOKOT S) TABLET PO SCH ×2 (08:01→21:00)
[2022-06-09] MEDS: APIXABAN 2.5 MG (ELIQUIS) TABLET PO SCH ×2 (08:01→21:01)
[2022-06-09] MEDS: DOCUSATE SODIUM 100 MG (COLACE) CAP PO SCH ×2 (08:01→21:01)
[2022-06-09] MEDS: NICOTINE 21 MG (NICODERM) PATCH TD SCH (08:01)
[2022-06-09] MEDS: polyethylene glycoL POWDER 17 GM (MIRALAX) PACK PO SCH ×2 (08:02→21:00)
[2022-06-09] MEDS: CYCLOBENZAPRINE 10 MG (FLEXERIL) TAB PO PRN ×2 (08:15→19:04)
[2022-06-09] MEDS: NICOTINE PATCH REMOVAL TP SCH (09:03)
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
--- NOTE | 2022-06-09 11:21 | Physical Therapy Daily Note ---
PT Daily Note-Current Subjective Pt. agrees to Rx, pt. c/o spasms chi in left hip and leg that are so overwhelming they inhibit her functional movement. Pt. is emotional on top of this b/c she says the deputy tommy is coming to interview her today and she is very nervous and requests that someone be in the room with her when he comes . This MANAGER REPORT assures her someone will accompany her Pain Numeric Pain Scale: 10-Worst Possible Pain Location: Left Location Body Site: Hip (and LE) Pain Description: Stabbing (spasms) Section J - Health Conditions 1. Rarely or not at all 2. Occasionally 3. Frequently 4. Almost constantly 8. Unable to answer Pain Effect on Sleep: 1 Pain Interference with Therapy: 4 Pain Interference w/Day-to-Day: 4 Appearance crying, wincing, grimacing while attempting supine L hip ex and movement for TRFs etc. Mental Status Patient Orientation: Normal For Age Attachments: Other-See Comments (immoblizer RLE knee) Transfers SCALE: Activities may be completed with or without assistive devices. 8-Kptuzhjzkx-lizhrth completes the activity by him/herself with no assistance from a helper. 5-Set-up or Clean-up Assistance-helper sets up or cleans up; patient completes activity. [place] assists only prior to or following the activity. 4-Supervision or Touching Assistance-helper provides verbal cues and/or touching/steadying and/or contact guard assistance as patient completes activity. Assistance may be provided throughout the activity or intermittently. 3-Partial/Moderate Assistance-helper does LESS THAN HALF the effort. [place] lifts, holds or supports trunk or limbs, but provides less than half the effort. 2-Substantial/Maximal Assistance-helper does MORE THAN HALF the effort. [place] lifts or holds trunk or limbs and provides more than half the effort. 9-Vrlpjgdfk-axzjgl does ALL the effort. Patient does none of the effort to complete the activity. Or, the assistance of 2 or more helpers is required for the patient to complete the activity. If activity was not attempted, code reason: 7-Patient Refused. 9-Not Applicable-not attempted and the patient did not perform the activity before the current illness, exacerbation or injury. 10-Not Attempted due to Environmental Limitations-(lack of equipment, weather restraints, etc.). 88-Not Attempted due to Medical Conditions or Safety Concerns. Roll Left & Right (QC): 4 Sit to Lying (QC): 4 Lying to Sitting/Side of Bed(Q: 3 Sit to Stand (QC): 4 Chair/Bci-hm-Jpjew Xfer(QC): 4 pt. with spasms and pain in left hip that caused such pain it took pt. approx 15 min to move from sp to sit using leg manager foreign and mod assist of MANAGER REPORT Weight Bearing Right Lower Extremity: Right Weight Bearing/Tolerated Left Lower Extremity: Left Touch Toe Bearing Right knee immobilizer to be donned during OOB activiy Gait Training Does the Patient Walk?: Yes Walk 10 feet (QC): 4 Walk 50 ft with 2 Turns(QC): 4 Gait Persons Needed: 1 Wheelchair Training Does the Pt Use a Wheelchair?: Yes Wheel 50 ft with 2 turns (QC): 6 Wheel 150 ft (QC): 6 Type of Wheelchair: Manual pt. needs assist only for application and removal of extended elevating leg rests. Exercises Supine Ex: Ankle pumps, Quad Set, Glut sets, Heel Slides, Hip abd/add (unable to complete secondary to pain and spasms) Supine Reps: 15 Treatments TRFs, w/c mob, gait, therex as above Assessment Current Status: Good Progress Pt. has a mobility limitation that justifies wheel chair with bilateral elevating leg rests. . Pt. is in a right knee immoblizer that limits knee flexion to approx 0 degrees, but pt is permitted to weight bear as tolerated on the right lower extemity. Pts LLE is a constant source of pain and she is limited to toe touch weight bearing on that side. Pt. is unable to ambulate household distances without pain and fatigue. Pt, cannot utilize a walker or cane for functional mobility except for transfers and very limited distances. This pt and her have explained their arrangement to allow and provide space inside their home to allow wheelchair mobility. pt. is indep in it s use and demonstrates ability to manage leg rests safely for pt.. PT Short Term Goals Short Term Goals Time Frame: Jun 13, 2022 Roll Left & Right: 4 Sit to lyin Lying to sitting on side of be: 4 Sit to stand: 3 Chair/xzy-rv-evzqs transfer: 3 Toilet transfer: 3 Car transfer: 3 Does pt use a wc or scooter: Yes Wheel 50ft w/2 turns: 6 Wheel 150 feet: 6 Type: Manual PT Group Home Goals Group Home Goals PT Group Home Goals Time Frame: Jul 01, 2022 Roll Left & Right (QC): 6 Sit to Lying (QC): 6 Lying-Sitting on Side/Bed(QC): 6 Sit to Stand (QC): 6 Chair/Tgf-mq-Xbssn Xfer(QC): 6 Toilet Transfer (QC): 6 Car Transfer (QC): 6 Does the Patient Walk: No and Walking Goal IS indicated Walk 10 feet (QC): 2 Walk 50ft with 2 Turns (QC): 2 Walk 150 ft (QC): 88 Walking 10ft on Uneven Surface: 2 1 Step (curb) (QC): 88 4 Steps (QC): 88 12 Steps (QC): 88 Picking up an Object (QC): 3 Does the Pt use WC or Scooter?: Yes Wheel 50 feet with 2 turns (QC: 6 Type: Manual Wheel 150 feet: 6 Type: Manual PT Plan Treatment/Plan Treatment Plan: Continue Plan of Care Treatment Plan: Bed Mobility, Education, Functional Activity Robel, Functional Strength, Group Therapy, Gait, Safety, Therapeutic Exercise, Transfers Treatment Duration: Jul 15, 2022 Frequency: At least 5 of 7 days/Wk (IRF) Estimated Hrs Per Day: 1.5 hours per day Patient and/or Family Agrees t: Yes Safety Risks/Education Patient Education: Gait Training, Transfer Techniques, Correct Positioning, W/C Management, Reviewed Don/Doff Brace, Disease Process, Safety Issues Teaching Recipient: Patient Teaching Methods: Demonstration, Discussion Response to Teaching: Verbalize Understanding, Return Demonstration, Reinforcement Needed Time Time In: 1000 Time Out: 1130 DATE: Jun 09, 2022 Total Billed Treatment Time: 90 Total Billed Treatment 1,WC20m,EX40m,FA30m MINA HANCOCK MANAGER REPORT Jun 09, 2022 11:21
[2022-06-09] MEDS: ETODOLAC 300 MG (LODINE) CAP PO PRN (12:59)
[2022-06-09] MEDS: ALPRAZolam 0.25 MG (XANAX) TAB PO PRN ×2 (13:42→21:00)
[2022-06-09] MEDS: ACETAMINOPHEN 325 MG TABLET PO PRN (19:04)
[2022-06-09 20:56] VITALS: BP 132/80
[2022-06-10] MEDS: ETODOLAC 300 MG (LODINE) CAP PO PRN ×2 (03:14→10:53)
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
[2022-06-10] MEDS: CYCLOBENZAPRINE 10 MG (FLEXERIL) TAB PO PRN ×3 (07:04→18:45)
[2022-06-10] MEDS: LEVOTHYROXINE 150 MCG (LEVOTHROID) TAB PO SCH (07:04)
[2022-06-10] MEDS: APIXABAN 2.5 MG (ELIQUIS) TABLET PO SCH ×2 (08:39→20:23)
[2022-06-10] MEDS: NICOTINE 21 MG (NICODERM) PATCH TD SCH (08:39)
[2022-06-10] MEDS: polyethylene glycoL POWDER 17 GM (MIRALAX) PACK PO SCH ×2 (08:39→21:00)
[2022-06-10] MEDS: DOCUSATE SODIUM 100 MG (COLACE) CAP PO SCH ×2 (08:39→20:23)
[2022-06-10] MEDS: SENNA W/DOCUSATE (SENOKOT S) TABLET PO SCH ×2 (08:39→20:23)
[2022-06-10] MEDS: NICOTINE PATCH REMOVAL TP SCH (08:39)
[2022-06-10 08:44] VITALS: BP 119/84
[2022-06-10] MEDS: ACETAMINOPHEN 325 MG TABLET PO PRN (08:59)
--- NOTE | 2022-06-10 10:07 | Occupational Ther Daily Note ---
OT Current Status-Daily Note Subjective Pt. reports spasms in left LE but does not state pain level. Pt. requests tylenol and receives it. Mental Status/Objective Patient Orientation: Person, Place, Time, Situation ADL-Treatment Therapy Code Descriptions/Definitions Functional [place] Measure: 0=Not Assessed/NA 4=Minimal Assistance 1=Total Assistance 5=Supervision or Setup 2=Maximal Assistance 6=Modified [place] 3=Moderate Assistance 7=Complete IndependenceSCALE: Activities may be completed with or without assistive devices. 7-Jtsyynrfna-pnlqsli completes the activity by him/herself with no assistance from a helper. 5-Set-up or Clean-up Assistance-helper sets up or cleans up; patient completes activity. [place] assists only prior to or following the activity. 4-Supervision or Touching Assistance-helper provides verbal cues and/or touching/steadying and/or contact guard assistance as patient completes activity. Assistance may be provided throughout the activity or intermittently. 3-Partial/Moderate Assistance-helper does LESS THAN HALF the effort. [place] lifts, holds or supports trunk or limbs, but provides less than half the effort. 2-Substantial/Maximal Assistance-helper does MORE THAN HALF the effort. [place] lifts or holds trunk or limbs and provides more than half the effort. 2-Cyrhmqake-iboksz does ALL the effort. Patient does none of the effort to complete the activity. Or, the assistance of 2 or more helpers is required for the patient to complete the activity. If activity was not attempted, code reason: 7-Patient Refused. 9-Not Applicable-not attempted and the patient did not perform the activity before the current illness, exacerbation or injury. 10-Not Attempted due to Environmental Limitations-(lack of equipment, weather restraints, etc.). 88-Not Attempted due to Medical Conditions or Safety Concerns. Eating (QC): 6 Oral Hygiene (QC): 5 (Set up seated in wheelchair at sink to brush dentures and perform oral care.) Shower/Bathe Self (QC): 4 (CGA in stance in shower. Pt. able to wash all other parts and utilized a LH sponge for LE.) Upper Body Dressing (QC): 5 (Pt. able to doff t-shirt. Demonstrates capability to don shirt after set up.) Lower Body Dressing (QC): 4 (CGA in stance to steady self when doffing over hips. She utilizes dressing stick to push down over LE. Pt. able to doff her own leg brace.) On/Off Footwear: 5 (Set up assistance to doff/don slipper socks using dressing stick and sock aide.) Other Treatment Pt. seen this date for ADL treatment. She was up in her wheelchair in gym when OT comes in. She is able to self propel to her room. Stands at walker with CGA and able to take very small and careful steps into shower. She is able to transfer to seat with CGA, and then doff clothing with adaptive equipment. Pt. is able to shower and dry off. After donning fresh clothing with AE, she transfers to wheelchair and performs all hygiene at sink. Pt. able to self propel out to room and then set up her own breakfast tray. OT talked with her regarding home set up while she ate. Pt. states that her s.o. is making a ramp for her and getting things set up. She will need a tub transfer bench, walker, and adaptive equipment for dressing, including a leg turbo operator to get her leg on/off the leg rests. Pt. states that her s.o. is going to go through his grandmother's things (she has passed) to see if there is anything that she can use. Pt. up with call light and all needs met after treatment. Education OT Patient Education: Correct positioning, Modified ADL techniques, Progress toward Goal/Update tx plan, Purpose of tx/functional activities, Reviewed precautions, Rehab process, Transfer techniques, Use of adapted equipment Teaching Recipient: Patient Teaching Methods: Demonstration, Discussion Response to Teaching: Verbalize Understanding, Return Demonstration OT Short Term Goals Short Term Goals Time Frame: Jun 14, 2022 Eatin Oral hygiene: 5 Toileting hygiene: 4 Shower/bathe self: 4 Upper body dressin Lower body dressin (With AE) Putting on/taking off footwear: 4 (With AE) OT [facility] Goals [employer] Appraiser Goals Time Frame: Jun 21, 2022 Acute change in mental status: 0 Inattention: 0 Disorganized thinkin Altered level of consciousness: 0 Eating (QC): 6 Oral Hygiene (QC): 6 Toileting Hygiene (QC): 6 Shower/Bathe Self (QC): 5 Upper Body Dressing (QC): 6 Lower Body Dressing (QC): 6 (With AE) On/Off Footwear (QC): 6 (With AE) Additional Goals: 1-Demonstrate ADL Tasks, 2-Verbalize Understanding, 3- ImproveStrength/Rob[place] 1=Demonstrate adherence to instructed precautions during ADL tasks. 2=Patient will verbalize/demonstrate understanding of assistive dev ices/modifications for ADL. 3=Patient will improve strength/tolerance for activity to enable patient to perform ADL's. OT Education/Plan Problem List/Assessment Assessment: Decreased Activ Tolerance, Impaired I ADL's, Impaired Self-Care Skills Discharge Recommendations Plan/Recommendations: Continue POC Equpiment Recommendations-D/C: Extended Bath Bench, Hip Kit Treatment Plan/Plan of Care Treatment,Training & Education: Yes Patient would benefit from OT for education, treatment and training to promote independence in ADL's, mobility, safety and/or upper extremity function for ADL's. Plan of Care: ADL Retraining, Functional Mobility, UE Funct Exercise/Act Treatment Duration: Jun 21, 2022 Frequency: At least 5 of 7 days/Wk (IRF) Estimated Hrs Per Day: 1.5 hours per day Agreement: Yes Rehab Potential: Good Time Start Time: 08:30 Stop Time: 10:00 DATE: Jun 10, 2022 Total Time Billed (hr/min): 90 Billed Treatment Time 1, ADL x 6 (90 minutes) KENNA MAKC OT Jun 10, 2022 10:06
--- NOTE | 2022-06-10 12:06 | Physical Therapy Daily Note ---
PT Daily Note-Current Subjective Pt found lying in bed upon entry /c nurse present. States that she is feeling a lot better than she did yesterday. Reports pain in ribs and hips. States she has most trouble /c muscle spasms in LLE. Describes pins and needles type pain. Does not rate. Pt left /c OT post-Tx in WC. Pain Section J - Health Conditions 1. Rarely or not at all 2. Occasionally 3. Frequently 4. Almost constantly 8. Unable to answer Pain Effect on Sleep: 1 Pain Interference with Therapy: 4 Pain Interference w/Day-to-Day: 4 Mental Status Patient Orientation: Person, Place, Time Transfers SCALE: Activities may be completed with or without assistive devices. 2-Jbdwtayuew-vhjsdzy completes the activity by him/herself with no assistance from a helper. 5-Set-up or Clean-up Assistance-helper sets up or cleans up; patient completes activity. [place] assists only prior to or following the activity. 4-Supervision or Touching Assistance-helper provides verbal cues and/or touching/steadying and/or contact guard assistance as patient completes activity. Assistance may be provided throughout the activity or intermittently. 3-Partial/Moderate Assistance-helper does LESS THAN HALF the effort. [place] lifts, holds or supports trunk or limbs, but provides less than half the effort. 2-Substantial/Maximal Assistance-helper does MORE THAN HALF the effort. [place] lifts or holds trunk or limbs and provides more than half the effort. 6-Jvalscldw-pbgauq does ALL the effort. Patient does none of the effort to complete the activity. Or, the assistance of 2 or more helpers is required for the patient to complete the activity. If activity was not attempted, code reason: 7-Patient Refused. 9-Not Applicable-not attempted and the patient did not perform the activity before the current illness, exacerbation or injury. 10-Not Attempted due to Environmental Limitations-(lack of equipment, weather restraints, etc.). 88-Not Attempted due to Medical Conditions or Safety Concerns. Sit to Lying (QC): 6 Lying to Sitting/Side of Bed(Q: 6 Sit to Stand (QC): 6 Chair/[place]-Tsslw Xfer(QC): 6 Pt independent /c all trfs. Uses loop AD to move LLE for trfs. Weight Bearing Right Lower Extremity: Right Weight Bearing/Tolerated Left Lower Extremity: Left Touch Toe Bearing Right knee immobilizer to be donned during OOB activiy Gait Training Does the Patient Walk?: Yes Distance: 10, 60 Walk 10 feet (QC): 4 Walk 50 ft with 2 Turns(QC): 4 Gait Persons Needed: 1 Gait Assistive Device: FWW Pt SBA /c gait training. Demonstrated slow gait /c short step lengths. Wheelchair Training Does the Pt Use a Wheelchair?: Yes Wheel 50 ft with 2 turns (QC): 6 Wheel 150 ft (QC): 6 Pt independent /c WC mobility. Wheeled 200ft total. Assessment Current Status: Good Progress Pt demonstrated good tolerance /c gait training this visit. Displays slow gait pattern /c short step length on bilateral LEs. Slow to complete trfs d/t pain and muscle spasms. Continue to progress pt as tolerated per POC to improve trfs, gait, functional ability, and decrease pain. PT Short Term Goals Short Term Goals Time Frame: Jun 13, 2022 Roll Left & Right: 4 Sit to lyin Lying to sitting on side of be: 4 Sit to stand: 3 Chair/peh-wz-nrbql transfer: 3 Toilet transfer: 3 Car transfer: 3 Does pt use a wc or scooter: Yes Wheel 50ft w/2 turns: 6 Wheel 150 feet: 6 Type: Manual PT Half-Way Goals Half-Way Goals PT Half-Way Goals Time Frame: Jul 01, 2022 Roll Left & Right (QC): 6 Sit to Lying (QC): 6 Lying-Sitting on Side/Bed(QC): 6 Sit to Stand (QC): 6 Chair/Gbv-lh-Opipi Xfer(QC): 6 Toilet Transfer (QC): 6 Car Transfer (QC): 6 Does the Patient Walk: No and Walking Goal IS indicated Walk 10 feet (QC): 2 Walk 50ft with 2 Turns (QC): 2 Walk 150 ft (QC): 88 Walking 10ft on Uneven Surface: 2 1 Step (curb) (QC): 88 4 Steps (QC): 88 12 Steps (QC): 88 Picking up an Object (QC): 3 Does the Pt use WC or Scooter?: Yes Wheel 50 feet with 2 turns (QC: 6 Type: Manual Wheel 150 feet: 6 Type: Manual PT Plan Treatment/Plan Treatment Plan: Continue Plan of Care Treatment Plan: Bed Mobility, Education, Functional Activity Robel, Functional Strength, Group Therapy, Gait, Safety, Therapeutic Exercise, Transfers Treatment Duration: Jul 15, 2022 Frequency: At least 5 of 7 days/Wk (IRF) Estimated Hrs Per Day: 1.5 hours per day Patient and/or Family Agrees t: Yes Time Time In: 0800 Time Out: 0830 DATE: Jun 10, 2022 Total Billed Treatment Time: 30 Total Billed Treatment 1 visit GT 1x FA 1x TORIE VEGA PTA Jun 10, 2022 12:06
--- NOTE | 2022-06-10 13:20 | Physical Therapy Daily Note ---
PT Daily Note-Current Subjective Pt found laying in bed upon entry. Agreed to PT. States that she took a shower and feels a lot better. Reports muscle spasms in LLE /c trf. Does not rate pain. Pain Section J - Health Conditions 1. Rarely or not at all 2. Occasionally 3. Frequently 4. Almost constantly 8. Unable to answer Pain Effect on Sleep: 1 Pain Interference with Therapy: 4 Pain Interference w/Day-to-Day: 4 Mental Status Patient Orientation: Person, Place, Time Transfers SCALE: Activities may be completed with or without assistive devices. 6-Drvpqjlfau-qpvgucf completes the activity by him/herself with no assistance from a helper. 5-Set-up or Clean-up Assistance-helper sets up or cleans up; patient completes activity. [place] assists only prior to or following the activity. 4-Supervision or Touching Assistance-helper provides verbal cues and/or touching/steadying and/or contact guard assistance as patient completes activity. Assistance may be provided throughout the activity or intermittently. 3-Partial/Moderate Assistance-helper does LESS THAN HALF the effort. [place] lifts, holds or supports trunk or limbs, but provides less than half the effort. 2-Substantial/Maximal Assistance-helper does MORE THAN HALF the effort. [place] lifts or holds trunk or limbs and provides more than half the effort. 7-Dmderfdcr-pvpufg does ALL the effort. Patient does none of the effort to complete the activity. Or, the assistance of 2 or more helpers is required for the patient to complete the activity. If activity was not attempted, code reason: 7-Patient Refused. 9-Not Applicable-not attempted and the patient did not perform the activity before the current illness, exacerbation or injury. 10-Not Attempted due to Environmental Limitations-(lack of equipment, weather restraints, etc.). 88-Not Attempted due to Medical Conditions or Safety Concerns. Lying to Sitting/Side of Bed(Q: 6 Sit to Stand (QC): 6 Chair/Ypv-es-Kzivy Xfer(QC): 6 Pt independent /c all trfs. Weight Bearing Right Lower Extremity: Right Weight Bearing/Tolerated Left Lower Extremity: Left Touch Toe Bearing Right knee immobilizer to be donned during OOB activiy Gait Training Does the Patient Walk?: Yes Distance: 30, 30 Walk 10 feet (QC): 4 Gait Persons Needed: 1 Gait Assistive Device: FWW Pt SBA /c gait training. Amb. 60ft total /c FWW. Exercises Supine Ex: Ankle pumps, Quad Set, Glut sets, Straight leg raise Supine Reps: 15 Assessment Current Status: Good Progress Pt is slow to complete trfs d/t muscle pain and spasms in LLE. Displays slow gait pattern and is able to maintain WB status. Demonstrates good endurance /c exercise. Continue to progress pt as tolerated per POC to improve strength, functional ability, and decrease pain. PT Short Term Goals Short Term Goals Time Frame: Jun 13, 2022 Roll Left & Right: 4 Sit to lyin Lying to sitting on side of be: 4 Sit to stand: 3 Chair/alh-iy-nvmgb transfer: 3 Toilet transfer: 3 Car transfer: 3 Does pt use a wc or scooter: Yes Wheel 50ft w/2 turns: 6 Wheel 150 feet: 6 Type: Manual PT [place] Tender Goals Snf Goals PT Snf Goals Time Frame: Jul 01, 2022 Roll Left & Right (QC): 6 Sit to Lying (QC): 6 Lying-Sitting on Side/Bed(QC): 6 Sit to Stand (QC): 6 Chair/Ptm-pr-Nhtzl Xfer(QC): 6 Toilet Transfer (QC): 6 Car Transfer (QC): 6 Does the Patient Walk: No and Walking Goal IS indicated Walk 10 feet (QC): 2 Walk 50ft with 2 Turns (QC): 2 Walk 150 ft (QC): 88 Walking 10ft on Uneven Surface: 2 1 Step (curb) (QC): 88 4 Steps (QC): 88 12 Steps (QC): 88 Picking up an Object (QC): 3 Does the Pt use WC or Scooter?: Yes Wheel 50 feet with 2 turns (QC: 6 Type: Manual Wheel 150 feet: 6 Type: Manual PT Plan Treatment/Plan Treatment Plan: Continue Plan of Care Treatment Plan: Bed Mobility, Education, Functional Activity [place], Functional Strength, Group Therapy, Gait, Safety, Therapeutic Exercise, Transfers Treatment Duration: Jul 15, 2022 Frequency: At least 5 of 7 days/Wk (IRF) Estimated Hrs Per Day: 1.5 hours per day Patient and/or Family Agrees t: Yes Time Time In: 1048 Time Out: 1148 DATE: Jun 10, 2022 Total Billed Treatment Time: 60 Total Billed Treatment 1 visit GT 1x FA 1x EX 2x TORIE VEGA SHREDDING MACHINE OPERATOR Jun 10, 2022 13:20
[2022-06-10] MEDS: LACTULOSE SYRUP 10GM/15ML (ENULOSE) 30ML UDC PO PRN (18:45)
[2022-06-10 20:16] VITALS: BP 119/79
[2022-06-10] MEDS: ALPRAZolam 0.25 MG (XANAX) TAB PO PRN (20:23)
[2022-06-11] MEDS: CYCLOBENZAPRINE 10 MG (FLEXERIL) TAB PO PRN ×4 (01:10→22:13)
[2022-06-11] MEDS: LEVOTHYROXINE 150 MCG (LEVOTHROID) TAB PO SCH (06:28)
[2022-06-11] MEDS: ALPRAZolam 0.25 MG (XANAX) TAB PO PRN ×2 (06:28→15:10)
[2022-06-11 07:38] VITALS: BP 113/81
[2022-06-11] MEDS: NICOTINE 21 MG (NICODERM) PATCH TD SCH (07:41)
[2022-06-11] MEDS: APIXABAN 2.5 MG (ELIQUIS) TABLET PO SCH ×2 (07:41→22:13)
[2022-06-11] MEDS: DOCUSATE SODIUM 100 MG (COLACE) CAP PO SCH ×2 (08:03→22:14)
[2022-06-11] MEDS: SENNA W/DOCUSATE (SENOKOT S) TABLET PO SCH ×2 (08:03→22:13)
[2022-06-11] MEDS: polyethylene glycoL POWDER 17 GM (MIRALAX) PACK PO SCH ×2 (08:03→22:17)
[2022-06-11] MEDS: NICOTINE PATCH REMOVAL TP SCH (08:03)
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
[2022-06-11] MEDS: ETODOLAC 300 MG (LODINE) CAP PO PRN ×2 (11:10→22:13)
[2022-06-11 20:00] VITALS: BP 113/73
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
[2022-06-12 05:34] LABS: BASOPHILS % (AUTO) 0 % (0-10); EOSINOPHILS # (AUTO) 0.4 10^3/uL (0.0-0.3); EOSINOPHILS % (AUTO) 5 % (0-10); HEMATOCRIT 32 % (35-52); HEMOGLOBIN 10.6 g/dL (11.5-16.0); LYMPHOCYTES # (AUTO) 2.2 10^3/uL (1.0-4.0); LYMPHOCYTES % (AUTO) 24 % (12-44); MEAN CORPUSCULAR HEMOGLOBIN 30 pg (25-34); MEAN CORPUSCULAR HGB CONC 33 g/dL (32-36); MEAN CORPUSCULAR VOLUME 92 fL (80-99); MEAN PLATELET VOLUME 9.6 fL (9.0-12.2); MONOCYTES # (AUTO) 0.4 10^3/uL (0.0-1.0); MONOCYTES % (AUTO) 5 % (0-12); NEUTROPHILS # (AUTO) 6.1 10^3/uL (1.8-7.8); NEUTROPHILS % (AUTO) 66 % (42-75); PLATELET COUNT 415 10^3/uL (130-400); WHITE BLOOD COUNT 9.3 10^3/uL (4.3-11.0)
[2022-06-12 05:54] LABS: BILIRUBIN,TOTAL 0.4 MG/DL (0.1-1.0); CREATININE SERUM 0.68 MG/DL (0.60-1.30); POTASSIUM 3.6 MMOL/L (3.6-5.0); TOTAL PROTEIN 6.2 GM/DL (6.4-8.2)
[2022-06-12] MEDS: LEVOTHYROXINE 150 MCG (LEVOTHROID) TAB PO SCH (07:07)
[2022-06-12] MEDS: CYCLOBENZAPRINE 10 MG (FLEXERIL) TAB PO PRN ×3 (07:07→20:36)
[2022-06-12 07:45] VITALS: BP 113/79
[2022-06-12] MEDS: SENNA W/DOCUSATE (SENOKOT S) TABLET PO SCH ×2 (08:05→20:01)
[2022-06-12] MEDS: APIXABAN 2.5 MG (ELIQUIS) TABLET PO SCH ×2 (08:05→20:01)
[2022-06-12] MEDS: DOCUSATE SODIUM 100 MG (COLACE) CAP PO SCH ×2 (08:05→20:01)
[2022-06-12] MEDS: NICOTINE 21 MG (NICODERM) PATCH TD SCH (08:05)
[2022-06-12] MEDS: polyethylene glycoL POWDER 17 GM (MIRALAX) PACK PO SCH ×2 (08:06→20:01)
[2022-06-12] MEDS: NICOTINE PATCH REMOVAL TP SCH (08:06)
--- NOTE | 2022-06-12 09:22 | Occupational Ther Daily Note ---
OT Current Status-Daily Note Subjective Pt alert, sitting EOB eating breakfast. Pt agrees to therapy. Per nrsg, pt had pain meds at 0700. Mental Status/Objective Patient Orientation: Person, Place, Time, Situation Attachments: Knee Immobilizer ADL-Treatment Pt agrees to shower. Independent with eating sitting EOB. Sitting in w/c at sink to complete oral care independently. Using FWW, pt able to complete SPT from surface to surface independently. Pt is only able to ambulate short distances with short gait to maintain wt bearing precautions and decrease fractured rib pain. Pt completes shower sitting on shower seat 100% of the time using LH sponge, grabbars and hand held shower independently. Pt able to stand while stabilizing with grabbars or FWW to hike pants over hips and AE to thread feet in/out of clothing, SBA for safety. Set up and SBA while pt dons/doffs knee immobilizer with AE. Set up for upper body dressing and footwear. Therapy Code Descriptions/Definitions Functional [place] Measure: 0=Not Assessed/NA 4=Minimal Assistance 1=Total Assistance 5=Supervision or Setup 2=Maximal Assistance 6=Modified [place] 3=Moderate Assistance 7=Complete IndependenceSCALE: Activities may be completed with or without assistive devices. 8-Woppgxqznn-wltqhjv completes the activity by him/herself with no assistance from a helper. 5-Set-up or Clean-up Assistance-helper sets up or cleans up; patient completes activity. [place] assists only prior to or following the activity. 4-Supervision or Touching Assistance-helper provides verbal cues and/or touching/steadying and/or contact guard assistance as patient completes activity. Assistance may be provided throughout the activity or intermittently. 3-Partial/Moderate Assistance-helper does LESS THAN HALF the effort. [place] lifts, holds or supports trunk or limbs, but provides less than half the effort. 2-Substantial/Maximal Assistance-helper does MORE THAN HALF the effort. [place] lifts or holds trunk or limbs and provides more than half the effort. 9-Hxmjbteil-uspjqv does ALL the effort. Patient does none of the effort to complete the activity. Or, the assistance of 2 or more helpers is required for the patient to complete the activity. If activity was not attempted, code reason: 7-Patient Refused. 9-Not Applicable-not attempted and the patient did not perform the activity before the current illness, exacerbation or injury. 10-Not Attempted due to Environmental Limitations-(lack of equipment, weather restraints, etc.). 88-Not Attempted due to Medical Conditions or Safety Concerns. Eating (QC): 6 Oral Hygiene (QC): 6 Shower/Bathe Self (QC): 6 Upper Body Dressing (QC): 5 Lower Body Dressing (QC): 4 On/Off Footwear: 5 Other Treatment Pt demonstrates ability to put on/take off w/c leg rests by self after set up. Pt's s.o. has rearranged home environment to accommodate w/c use. Pt has demonstrated independence with w/c mobility. Due to wt bearing status and pain, pt able to only ambulate for short distances with FWW. After session, pt sitting in w/c with call light/phone in reach. All needs met in room. OT Short Term Goals Short Term Goals Time Frame: Jun 14, 2022 Eatin Oral hygiene: 5 Toileting hygiene: 4 Shower/bathe self: 4 Upper body dressin Lower body dressin (With AE) Putting on/taking off footwear: 4 (With AE) OT Halfway Goals Halfway Goals Time Frame: Jun 21, 2022 Acute change in mental status: 0 Inattention: 0 Disorganized thinkin Altered level of consciousness: 0 Eating (QC): 6 Oral Hygiene (QC): 6 Toileting Hygiene (QC): 6 Shower/Bathe Self (QC): 5 Upper Body Dressing (QC): 6 Lower Body Dressing (QC): 6 (With AE) On/Off Footwear (QC): 6 (With AE) Additional Goals: 1-Demonstrate ADL Tasks, 2-Verbalize Understanding, 3- ImproveStrength/[place] 1=Demonstrate adherence to instructed precautions during ADL tasks. 2=Patient will verbalize/demonstrate understanding of assistive devices/modifications for ADL. 3=Patient will improve strength/tolerance for activity to enable patient to perform ADL's. OT Education/Plan Problem List/Assessment Assessment: Decreased Activ Tolerance, Impaired Funct Balance, Impaired Self- Care Skills Discharge Recommendations Plan/Recommendations: Continue POC Treatment Plan/Plan of Care Patient would benefit from OT for education, treatment and training to promote independence in ADL's, mobility, safety and/or upper extremity function for ADL's. Plan of Care: ADL Retraining, Functional Mobility, UE Funct Exercise/Act Treatment Duration: Jun 21, 2022 Frequency: At least 5 of 7 days/Wk (IRF) Estimated Hrs Per Day: 1.5 hours per day Agreement: Yes Rehab Potential: Good Time Start Time: 07:30 Stop Time: 09:00 DATE: Jun 12, 2022 Total Time Billed (hr/min): 90 Billed Treatment Time 1 visit-ADL 6 (90 min) KELLY PUTNAM Jun 12, 2022 09:22
--- NOTE | 2022-06-12 11:56 | Physical Therapy Daily Note ---
PT Daily Note-Current Subjective Pt sitting in [facility] upon arrival. Pt agrees to PT. Reports pain in ribs and hips. States she has most trouble /c muscle spasms in LLE. Describes pins and needles type pain. Pain Numeric Pain Scale: 7 Location: Right, Left Pain Description: Ache Comment: Pt reports R & L LE & rib pain Section J - Health Conditions 1. Rarely or not at all 2. Occasionally 3. Frequently 4. Almost constantly 8. Unable to answer Pain Effect on Sleep: 1 Pain Interference with Therapy: 4 Pain Interference w/Day-to-Day: 4 Mental Status Patient Orientation: Person, Place, Time, Situation Attachments: Knee Immobilizer Transfers SCALE: Activities may be completed with or without assistive devices. 8-Nbklisddkl-uypbrgh completes the activity by him/herself with no assistance from a helper. 5-Set-up or Clean-up Assistance-helper sets up or cleans up; patient completes activity. [place] assists only prior to or following the activity. 4-Supervision or Touching Assistance-helper provides verbal cues and/or touching/steadying and/or contact guard assistance as patient completes activity. Assistance may be provided throughout the activity or intermittently. 3-Partial/Moderate Assistance-helper does LESS THAN HALF the effort. [place] lifts, holds or supports trunk or limbs, but provides less than half the effort. 2-Substantial/Maximal Assistance-helper does MORE THAN HALF the effort. [place] lifts or holds trunk or limbs and provides more than half the effort. 3-Rloscrsmc-dhrehj does ALL the effort. Patient does none of the effort to complete the activity. Or, the assistance of 2 or more helpers is required for the patient to complete the activity. If activity was not attempted, code reason: 7-Patient Refused. 9-Not Applicable-not attempted and the patient did not perform the activity before the current illness, exacerbation or injury. 10-Not Attempted due to Environmental Limitations-(lack of equipment, weather restraints, etc.). 88-Not Attempted due to Medical Conditions or Safety Concerns. Sit to Stand (QC): 5 Weight Bearing Right Lower Extremity: Right Weight Bearing/Tolerated Left Lower Extremity: Left Touch Toe Bearing Right knee immobilizer to be donned during OOB activity Gait Training Does the Patient Walk?: Yes Distance: 15 Walk 10 feet (QC): 5 Gait Assistive Device: FWW Pt is able to amb. while keeping WBAT on R LE & TTWB on L LE. Pt uses UE to offset WB. Wheelchair Training Does the Pt Use a Wheelchair?: Yes Type of Wheelchair: Manual Exercises Seated Therapy Exercises: Ankle pumps, Long arc quads, Hip flexion, Hamstring Curls, Hip abd/add, Glut set Seated Reps: 15 Treatments Pt completes Seated EX in [facility] as requested due to laying Supine (completely flat is uncomfortable, needs to elevate to 30 deg). Pt is able to complete Sit to Stands as well as amb. short distance while maintaining WB status. WOOD ROOM HAND & Pt discuss pt ed. items including AE, proper WB and benefits of continued movement chi. if upcoming surgery is possibly. Pt resting in WCH w/all needs met, call light next to pt. Assessment Current Status: Good Progress Pt has improved with strength, mobility and transfers. Pt is very motivated to improve for better quality of life at home. PT Short Term Goals Short Term Goals Time Frame: Jun 13, 2022 Roll Left & Right: 4 Sit to lyin Lying to sitting on side of be: 4 Sit to stand: 3 Chair/npy-bb-cvbez transfer: 3 Toilet transfer: 3 Car transfer: 3 Does pt use a wc or scooter: Yes Wheel 50ft w/2 turns: 6 Wheel 150 feet: 6 Type: Manual PT Cremator Goals Cremator Goals PT Senior Living Goals Time Frame: Jul 01, 2022 Roll Left & Right (QC): 6 Sit to Lying (QC): 6 Lying-Sitting on Side/Bed(QC): 6 Sit to Stand (QC): 6 Chair/Kuw-mn-Npriw Xfer(QC): 6 Toilet Transfer (QC): 6 Car Transfer (QC): 6 Does the Patient Walk: No and Walking Goal IS indicated Walk 10 feet (QC): 2 Walk 50ft with 2 Turns (QC): 2 Walk 150 ft (QC): 88 Walking 10ft on Uneven Surface: 2 1 Step (curb) (QC): 88 4 Steps (QC): 88 12 Steps (QC): 88 Picking up an Object (QC): 3 Does the Pt use WC or Scooter?: Yes Wheel 50 feet with 2 turns (QC: 6 Type: Manual Wheel 150 feet: 6 Type: Manual PT Plan Treatment/Plan Treatment Plan: Continue Plan of Care Treatment Plan: Bed Mobility, Education, Functional Activity Robel, Functional Strength, Group Therapy, Gait, Safety, Therapeutic Exercise, Transfers Treatment Duration: Jul 15, 2022 Frequency: At least 5 of 7 days/Wk (IRF) Estimated Hrs Per Day: 1.5 hours per day Patient and/or Family Agrees t: Yes Safety Risks/Education Patient Education: Gait Training, Reviewed Precautions, Correct Positioning, Safety Issues Teaching Recipient: Patient Teaching Methods: Discussion Response to Teaching: Verbalize Understanding Time Time In: 1000 Time Out: 1130 DATE: Jun 12, 2022 Total Billed Treatment Time: 90 Total Billed Treatment 1, EX x2 (35m), FA x2 (25m), GT (15m) & WCH (15m) PERLA ROLON WOOD ROOM HAND Jun 12, 2022 11:56
--- NOTE | 2022-06-12 12:18 | Physical Therapy Progress Note ---
Therapy Progress Note Patient has mobility limitations that significantly impairs her ability to participate in one or more mobility-related activities of daily living (MRADL)in the home and justifies wheel chair with bilateral elevating leg rests. Pt. is in a right knee immobilizer that limits knee flexion to approx 0 degrees, but pt is permitted to weight bear as tolerated on the right lower extremity. Pts LLE is a constant source of pain and she is limited to toe touch weight bearing on that side. Pt. is unable to ambulate household distances without pain and fatigue. Patient is able to safely use the wheelchair and has room to maneuver the wheelchair within the home. The functional mobility deficit can be sufficiently resolved with use of a wheelchair. This could not be achieved by a walker or cane. PERLA ROLON PTA Jun 12, 2022 12:18
[2022-06-12] MEDS ORDERED: ACET-2267 PO (13:11)
[2022-06-12] MEDS ORDERED: IBUP-2473 PO (13:11)
[2022-06-12] MEDS: ACETAMINOPHEN 325 MG TABLET PO PRN (18:19)
[2022-06-12] MEDS: diphenhydrAMINE 25 MG TAB (BENADRYL) PO PRN (20:01)
[2022-06-12 20:21] VITALS: BP 111/73
[2022-06-12] MEDS: ALPRAZolam 0.25 MG (XANAX) TAB PO PRN (20:36)
[2022-06-13] MEDS: diphenhydrAMINE 25 MG TAB (BENADRYL) PO PRN ×2 (01:36→22:52)
[2022-06-13] MEDS: CYCLOBENZAPRINE 10 MG (FLEXERIL) TAB PO PRN ×3 (02:32→19:34)
[2022-06-13] MEDS: LEVOTHYROXINE 150 MCG (LEVOTHROID) TAB PO SCH (06:33)
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
[2022-06-13 07:54] VITALS: BP 106/72
[2022-06-13] MEDS: NICOTINE 21 MG (NICODERM) PATCH TD SCH (08:27)
[2022-06-13] MEDS: polyethylene glycoL POWDER 17 GM (MIRALAX) PACK PO SCH ×2 (08:27→19:37)
[2022-06-13] MEDS: APIXABAN 2.5 MG (ELIQUIS) TABLET PO SCH ×2 (08:28→19:34)
[2022-06-13] MEDS: NICOTINE PATCH REMOVAL TP SCH (08:28)
[2022-06-13] MEDS: SENNA W/DOCUSATE (SENOKOT S) TABLET PO SCH ×2 (08:28→19:37)
[2022-06-13] MEDS: DOCUSATE SODIUM 100 MG (COLACE) CAP PO SCH ×2 (08:28→19:37)
--- NOTE | 2022-06-13 09:50 | Occupational Ther Daily Note ---
OT Current Status-Daily Note Subjective Pt sleeping in bed, woke to name. Pt agrees to therapy. Pt stated that she has had her pain meds but needed her Flexeril, reported to nrsg. Mental Status/Objective Patient Orientation: Person, Place, Time, Situation Attachments: Knee Immobilizer ADL-Treatment Pt stated that she had an allergic reaction to something and she had a rough night sleeping. Pt requested a shower. Pt completed shower sitting 100% of the time on shower seat using grabbars, hand held shower and LH sponge. Set up for upper body dressing and footwear (AE) SBA for lower body dressing when standing to hike pants. Set up to don knee immobilizer, independent doffing immobilizer. Sitting in w/c, pt completed oral care at sink independently. After therapy, pt sitting in w/c with call light/phone in reach. All needs met in room. Therapy Code Descriptions/Definitions Functional [place] Measure: 0=Not Assessed/NA 4=Minimal Assistance 1=Total Assistance 5=Supervision or Setup 2=Maximal Assistance 6=Modified [place] 3=Moderate Assistance 7=Complete IndependenceSCALE: Activities may be completed with or without assistive devices. 7-Ongqdhcpmb-furaops completes the activity by him/herself with no assistance from a helper. 5-Set-up or Clean-up Assistance-helper sets up or cleans up; patient completes activity. [place] assists only prior to or following the activity. 4-Supervision or Touching Assistance-helper provides verbal cues and/or touching/steadying and/or contact guard assistance as patient completes activity. Assistance may be provided throughout the activity or intermittently. 3-Partial/Moderate Assistance-helper does LESS THAN HALF the effort. [place] lifts, holds or supports trunk or limbs, but provides less than half the effort. 2-Substantial/Maximal Assistance-helper does MORE THAN HALF the effort. [place] lifts or holds trunk or limbs and provides more than half the effort. 2-Mmgdfovgq-tlljia does ALL the effort. Patient does none of the effort to complete the activity. Or, the assistance of 2 or more helpers is required for the patient to complete the activity. If activity was not attempted, code reason: 7-Patient Refused. 9-Not Applicable-not attempted and the patient did not perform the activity before the current illness, exacerbation or injury. 10-Not Attempted due to Environmental Limitations-(lack of equipment, weather restraints, etc.). 88-Not Attempted due to Medical Conditions or Safety Concerns. Oral Hygiene (QC): 6 Shower/Bathe Self (QC): 6 Upper Body Dressing (QC): 5 Lower Body Dressing (QC): 4 On/Off Footwear: 5 OT Short Term Goals Short Term Goals Time Frame: Jun 14, 2022 Eatin Oral hygiene: 5 Toileting hygiene: 4 Shower/bathe self: 4 Upper body dressin Lower body dressin (With AE) Putting on/taking off footwear: 4 (With AE) OT Residential Goals Pattern Hand Goals Time Frame: Jun 21, 2022 Acute change in mental status: 0 Inattention: 0 Disorganized thinkin Altered level of consciousness: 0 Eating (QC): 6 Oral Hygiene (QC): 6 Toileting Hygiene (QC): 6 Shower/Bathe Self (QC): 5 Upper Body Dressing (QC): 6 Lower Body Dressing (QC): 6 (With AE) On/Off Footwear (QC): 6 (With AE) Additional Goals: 1-Demonstrate ADL Tasks, 2-Verbalize Understanding, 3- ImproveStrength/Robel 1=Demonstrate adherence to instructed precautions during ADL tasks. 2=Patient will verbalize/demonstrate understanding of assistive devices/modifications for ADL. 3=Patient will improve strength/tolerance for activity to enable patient to perform ADL's. OT Education/Plan Problem List/Assessment Assessment: Decreased Activ Tolerance, Impaired Funct Balance, Impaired Self- Care Skills Discharge Recommendations Plan/Recommendations: Continue POC Treatment Plan/Plan of Care Patient would benefit from OT for education, treatment and training to promote independence in ADL's, mobility, safety and/or upper extremity function for ADL's. Plan of Care: ADL Retraining, Functional Mobility, UE Funct Exercise/Act Treatment Duration: Jun 21, 2022 Frequency: At least 5 of 7 days/Wk (IRF) Estimated Hrs Per Day: 1.5 hours per day Agreement: Yes Rehab Potential: Good Time Start Time: 09:00 Stop Time: 10:00 DATE: Jun 13, 2022 Total Time Billed (hr/min): 60 Billed Treatment Time 1 visit-ADL 4 (60 min) KELLY PUTNAM Jun 13, 2022 09:50
[2022-06-13] MEDS: ACETAMINOPHEN 325 MG TABLET PO PRN (11:45)
--- NOTE | 2022-06-13 12:00 | Physical Therapy Daily Note ---
PT Daily Note-Current Subjective Pt sitting in WC in room upon arrival. Pt agrees to PT. Pain Location: Right, Left Location Body Site: Side Pain Description: Ache Comment: Reports rib pain Section J - Health Conditions 1. Rarely or not at all 2. Occasionally 3. Frequently 4. Almost constantly 8. Unable to answer Pain Effect on Sleep: 1 Pain Interference with Therapy: 4 Pain Interference w/Day-to-Day: 4 Mental Status Patient Orientation: Person, Place, Time, Situation Attachments: Knee Immobilizer Transfers SCALE: Activities may be completed with or without assistive devices. 7-Qwqktdguri-zoaedvr completes the activity by him/herself with no assistance from a helper. 5-Set-up or Clean-up Assistance-helper sets up or cleans up; patient completes activity. [place] assists only prior to or following the activity. 4-Supervision or Touching Assistance-helper provides verbal cues and/or touching/steadying and/or contact guard assistance as patient completes activity. Assistance may be provided throughout the activity or intermittently. 3-Partial/Moderate Assistance-helper does LESS THAN HALF the effort. [place] lifts, holds or supports trunk or limbs, but provides less than half the effort. 2-Substantial/Maximal Assistance-helper does MORE THAN HALF the effort. [place] lifts or holds trunk or limbs and provides more than half the effort. 6-Rltvxdezi-vsaqjg does ALL the effort. Patient does none of the effort to complete the activity. Or, the assistance of 2 or more helpers is required for the patient to complete the activity. If activity was not attempted, code reason: 7-Patient Refused. 9-Not Applicable-not attempted and the patient did not perform the activity before the current illness, exacerbation or injury. 10-Not Attempted due to Environmental Limitations-(lack of equipment, weather restraints, etc.). 88-Not Attempted due to Medical Conditions or Safety Concerns. Sit to Stand (QC): 4 Weight Bearing Right Lower Extremity: Right Weight Bearing/Tolerated Left Lower Extremity: Left Touch Toe Bearing Right knee immobilizer to be donned during OOB activity Wheelchair Training Does the Pt Use a Wheelchair?: Yes Wheel 50 ft with 2 turns (QC): 6 Wheel 150 ft (QC): 6 Type of Wheelchair: Manual Treatments Pt focused on maneuvering WCH in tight spaces, turns and using WCH ramp. Pt wheeled in hallway before performing stands at //bars in Therapy Gym. Pt returns to room to rest at end of tx w/all needs met, call light next to pt. Assessment Current Status: Good Progress Pt is able to beni. [facility] mobility well. PT Short Term Goals Short Term Goals Time Frame: Jun 13, 2022 Roll Left & Right: 4 Sit to lyin Lying to sitting on side of be: 4 Sit to stand: 3 Chair/cru-wb-zufiu transfer: 3 Toilet transfer: 3 Car transfer: 3 Does pt use a wc or scooter: Yes Wheel 50ft w/2 turns: 6 Wheel 150 feet: 6 Type: Manual PT [facility] Goals Horse Buyer Goals PT [facility] Goals Time Frame: Jul 01, 2022 Roll Left & Right (QC): 6 Sit to Lying (QC): 6 Lying-Sitting on Side/Bed(QC): 6 Sit to Stand (QC): 6 Chair/Kwz-jx-Andhe Xfer(QC): 6 Toilet Transfer (QC): 6 Car Transfer (QC): 6 Does the Patient Walk: No and Walking Goal IS indicated Walk 10 feet (QC): 2 Walk 50ft with 2 Turns (QC): 2 Walk 150 ft (QC): 88 Walking 10ft on Uneven Surface: 2 1 Step (curb) (QC): 88 4 Steps (QC): 88 12 Steps (QC): 88 Picking up an Object (QC): 3 Does the Pt use WC or Scooter?: Yes Wheel 50 feet with 2 turns (QC: 6 Type: Manual Wheel 150 feet: 6 Type: Manual PT Plan Treatment/Plan Treatment Plan: Continue Plan of Care Treatment Plan: Bed Mobility, Education, Functional Activity Robel, Functional Strength, Group Therapy, Gait, Safety, Therapeutic Exercise, Transfers Treatment Duration: Jul 15, 2022 Frequency: At least 5 of 7 days/Wk (IRF) Estimated Hrs Per Day: 1.5 hours per day Patient and/or Family Agrees t: Yes Safety Risks/Education Patient Education: Transfer Techniques, W/C Management Teaching Recipient: Patient Teaching Methods: Discussion Response to Teaching: Verbalize Understanding Time Time In: 1000 Time Out: 1100 DATE: Jun 13, 2022 Total Billed Treatment Time: 60 Total Billed Treatment 1, WCH x3 (40m) & FA (20m) PERLA ROLON ACADEMY EDUCATION DIRECTOR Jun 13, 2022 12:00
--- NOTE | 2022-06-13 14:07 | Occupational Ther Daily Note ---
OT Current Status-Daily Note Subjective Pt alert, sitting in w/c. Pt agrees to therapy. C/o pain, reported to nrsg. Mental Status/Objective Patient Orientation: Person, Place, Time, Situation Attachments: Knee Immobilizer ADL-Treatment Pt independent with toileting and toilet transfer from w/c to [facility] using FWW for SPT. Therapy Code Descriptions/Definitions Functional [place] Measure: 0=Not Assessed/NA 4=Minimal Assistance 1=Total Assistance 5=Supervision or Setup 2=Maximal Assistance 6=Modified [place] 3=Moderate Assistance 7=Complete IndependenceSCALE: Activities may be completed with or without assistive devices. 0-Tspdylcjgj-cftyqxn completes the activity by him/herself with no assistance from a helper. 5-Set-up or Clean-up Assistance-helper sets up or cleans up; patient completes activity. [place] assists only prior to or following the activity. 4-Supervision or Touching Assistance-helper provides verbal cues and/or touching/steadying and/or contact guard assistance as patient completes activity. Assistance may be provided throughout the activity or intermittently. 3-Partial/Moderate Assistance-helper does LESS THAN HALF the effort. [place] lifts, holds or supports trunk or limbs, but provides less than half the effort. 2-Substantial/Maximal Assistance-helper does MORE THAN HALF the effort. [place] lifts or holds trunk or limbs and provides more than half the effort. 0-Awdtergct-ybqoxr does ALL the effort. Patient does none of the effort to complete the activity. Or, the assistance of 2 or more helpers is required for the patient to complete the activity. If activity was not attempted, code reason: 7-Patient Refused. 9-Not Applicable-not attempted and the patient did not perform the activity before the current illness, exacerbation or injury. 10-Not Attempted due to Environmental Limitations-(lack of equipment, weather restraints, etc.). 88-Not Attempted due to Medical Conditions or Safety Concerns. Toileting Hygiene (QC): 6 Toilet Transfer (QC): 6 Other Treatment Pt propelled w/c independently to therapy gym. Pt completed arm bike for 10 min at 25 meneses resistance to increase B UE strength and activity tolerance for daily functional tasks. After therapy, pt sitting in w/c with call light/phone in reach. All needs met in room. OT Short Term Goals Short Term Goals Time Frame: Jun 14, 2022 Eatin Oral hygiene: 5 Toileting hygiene: 4 Shower/bathe self: 4 Upper body dressin Lower body dressin (With AE) Putting on/taking off footwear: 4 (With AE) OT Telegraph Inspector Goals Telegraph Inspector Goals Time Frame: Jun 21, 2022 Acute change in mental status: 0 Inattention: 0 Disorganized thinkin Altered level of consciousness: 0 Eating (QC): 6 Oral Hygiene (QC): 6 Toileting Hygiene (QC): 6 Shower/Bathe Self (QC): 5 Upper Body Dressing (QC): 6 Lower Body Dressing (QC): 6 (With AE) On/Off Footwear (QC): 6 (With AE) Additional Goals: 1-Demonstrate ADL Tasks, 2-Verbalize Understanding, 3- ImproveStrength/Robel 1=Demonstrate adherence to instructed precautions during ADL tasks. 2=Patient will verbalize/demonstrate understanding of assistive devices/modifications for ADL. 3=Patient will improve strength/tolerance for activity to enable patient to perform ADL's. OT Education/Plan Discharge Recommendations Plan/Recommendations: Continue POC Treatment Plan/Plan of Care Patient would benefit from OT for education, treatment and training to promote independence in ADL's, mobility, safety and/or upper extremity function for AD L's. Plan of Care: ADL Retraining, Functional Mobility, UE Funct Exercise/Act Treatment Duration: Jun 21, 2022 Frequency: At least 5 of 7 days/Wk (IRF) Estimated Hrs Per Day: 1.5 hours per day Agreement: Yes Rehab Potential: Good Time Start Time: 13:00 Stop Time: 13:30 DATE: Jun 13, 2022 Total Time Billed (hr/min): 30 Billed Treatment Time 1 visit-ADL 1 (15 min) EX 1 (15 min) KELLY PUTNAM Jun 13, 2022 14:07
--- NOTE | 2022-06-13 15:17 | Physical Therapy Daily Note ---
PT Daily Note-Current Subjective Pt sitting in [facility] in room upon arrival. Pt agrees to PT. Pain Numeric Pain Scale: 6 Location: Right, Left Location Body Site: Side Pain Description: Ache Comment: Reports rib pain Section J - Health Conditions 1. Rarely or not at all 2. Occasionally 3. Frequently 4. Almost constantly 8. Unable to answer Pain Effect on Sleep: 1 Pain Interference with Therapy: 4 Pain Interference w/Day-to-Day: 4 Mental Status Patient Orientation: Person, Place, Time, Situation Attachments: Knee Immobilizer Transfers SCALE: Activities may be completed with or without assistive devices. 1-Zfxllgbeqg-mrifdws completes the activity by him/herself with no assistance fr om a helper. 5-Set-up or Clean-up Assistance-helper sets up or cleans up; patient completes activity. [place] assists only prior to or following the activity. 4-Supervision or Touching Assistance-helper provides verbal cues and/or touching/steadying and/or contact guard assistance as patient completes activity. Assistance may be provided throughout the activity or intermittently. 3-Partial/Moderate Assistance-helper does LESS THAN HALF the effort. [place] lifts, holds or supports trunk or limbs, but provides less than half the effort. 2-Substantial/Maximal Assistance-helper does MORE THAN HALF the effort. [place] lifts or holds trunk or limbs and provides more than half the effort. 9-Zsdtbwzcb-ksizyp does ALL the effort. Patient does none of the effort to complete the activity. Or, the assistance of 2 or more helpers is required for the patient to complete the activity. If activity was not attempted, code reason: 7-Patient Refused. 9-Not Applicable-not attempted and the patient did not perform the activity before the current illness, exacerbation or injury. 10-Not Attempted due to Environmental Limitations-(lack of equipment, weather restraints, etc.). 88-Not Attempted due to Medical Conditions or Safety Concerns. Weight Bearing Right Lower Extremity: Right Weight Bearing/Tolerated Left Lower Extremity: Left Touch Toe Bearing Right knee immobilizer to be donned during OOB activity Wheelchair Training Does the Pt Use a Wheelchair?: Yes Type of Wheelchair: Manual Treatments Pt given pain med to start tx. WAREHOUSE INVENTORY CLERK issues and reviews written HEP for Supine and Seated Ex since pt reports getting easier to lay in bed. Discussion of positioning chi. in bed mobility, body mechanics and proper transfers and ambulation positioning were also completed. Pt resting at end of tx w/all needs met,call light in hand. Assessment Current Status: Good Progress Pt continues to make progress w/knowledge and education gained to aid in pain control and prevent. PT Short Term Goals Short Term Goals Time Frame: Jun 13, 2022 Roll Left & Right: 4 Sit to lyin Lying to sitting on side of be: 4 Sit to stand: 3 Chair/mxu-um-tvzxk transfer: 3 Toilet transfer: 3 Car transfer: 3 Does pt use a wc or scooter: Yes Wheel 50ft w/2 turns: 6 Wheel 150 feet: 6 Type: Manual PT Forestry Technical Officer Goals [facility] Goals PT [facility] Goals Time Frame: Jul 01, 2022 Roll Left & Right (QC): 6 Sit to Lying (QC): 6 Lying-Sitting on Side/Bed(QC): 6 Sit to Stand (QC): 6 Chair/Ehg-hj-Wacrc Xfer(QC): 6 Toilet Transfer (QC): 6 Car Transfer (QC): 6 Does the Patient Walk: No and Walking Goal IS indicated Walk 10 feet (QC): 2 Walk 50ft with 2 Turns (QC): 2 Walk 150 ft (QC): 88 Walking 10ft on Uneven Surface: 2 1 Step (curb) (QC): 88 4 Steps (QC): 88 12 Steps (QC): 88 Picking up an Object (QC): 3 Does the Pt use WC or Scooter?: Yes Wheel 50 feet with 2 turns (QC: 6 Type: Manual Wheel 150 feet: 6 Type: Manual PT Plan Treatment/Plan Treatment Plan: Continue Plan of Care Treatment Plan: Bed Mobility, Education, Functional Activity Robel, Functional Strength, Group Therapy, Gait, Safety, Therapeutic Exercise, Transfers Treatment Duration: Jul 15, 2022 Frequency: At least 5 of 7 days/Wk (IRF) Estimated Hrs Per Day: 1.5 hours per day Patient and/or Family Agrees t: Yes Safety Risks/Education Patient Education: Transfer Techniques, Correct Positioning Teaching Recipient: Patient Teaching Methods: Discussion Response to Teaching: Verbalize Understanding Time Time In: 1400 Time Out: 1430 DATE: Jun 13, 2022 Total Billed Treatment Time: 30 Total Billed Treatment 1, EX x2 (30m) PERLA ROLON WAREHOUSE INVENTORY CLERK Jun 13, 2022 15:17
[2022-06-13] MEDS: ALPRAZolam 0.25 MG (XANAX) TAB PO PRN (19:34)
[2022-06-13 19:42] VITALS: BP 113/71
[2022-06-14] MEDS: CYCLOBENZAPRINE 10 MG (FLEXERIL) TAB PO PRN ×3 (01:36→17:54)
[2022-06-14] MEDS: LEVOTHYROXINE 150 MCG (LEVOTHROID) TAB PO SCH (05:53)
[2022-06-14] MEDS: ACETAMINOPHEN 325 MG TABLET PO PRN (05:53)
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
[2022-06-14 07:38] VITALS: BP 123/83
--- NOTE | 2022-06-14 07:40 | Occupational Ther Daily Note ---
OT Current Status-Daily Note Subjective Pt alert, lying in bed talking on phone. Pt agrees to therapy. No c/o pain at this time. Pt very aware of her med times. Mental Status/Objective Patient Orientation: Person, Place, Time, Situation Attachments: Knee Immobilizer ADL-Treatment Pt independent with eating. Independent with bed mobility. When items are left in designated area for pt to reach by self, pt is independent with SPT using FWW from surface to surface. Pt propelled w/c to bathroom then used grabbars and shower seat to transfer in/out of shower. Pt set up own shower at w/c level. Sitting 100% of the time on shower seat, pt able to complete shower independently using hand held shower, LH sponge and grabbars. Pt completes doffing clothing and donning lower body clothing sitting on shower bench to be able to don/doff knee immobilizer before/after standing, independently. Sitting in w/c at sink, pt completes oral care independently. Using AE to don/doff for footwear. Pt demonstrates independence during previous therapies, independence with toileting and toilet transfer. Pt uses w/c to get to toilet, uses FWW and grabbars to transfer to BSC independently. Using FWW and grabbars, pt complete toileting independently. After therapy, pt sitting in w/c with call light/phone in reach. All needs met in room. Therapy Code Descriptions/Definitions Functional [place] Measure: 0=Not Assessed/NA 4=Minimal Assistance 1=Total Assistance 5=Supervision or Setup 2=Maximal Assistance 6=Modified [place] 3=Moderate Assistance 7=Complete IndependenceSCALE: Activities may be completed with or without assistive devices. 4-Kzknvbthlt-rjukpsl completes the activity by him/herself with no assistance from a helper. 5-Set-up or Clean-up Assistance-helper sets up or cleans up; patient completes activity. [place] assists only prior to or following the activity. 4-Supervision or Touching Assistance-helper provides verbal cues and/or touching/steadying and/or contact guard assistance as patient completes activity. Assistance may be provided throughout the activity or intermittently. 3-Partial/Moderate Assistance-helper does LESS THAN HALF the effort. [place] lifts, holds or supports trunk or limbs, but provides less than half the effort. 2-Substantial/Maximal Assistance-helper does MORE THAN HALF the effort. [place] lifts or holds trunk or limbs and provides more than half the effort. 1-Grdkvupkt-dfchsi does ALL the effort. Patient does none of the effort to complete the activity. Or, the assistance of 2 or more helpers is required for the patient to complete the activity. If activity was not attempted, code reason: 7-Patient Refused. 9-Not Applicable-not attempted and the patient did not perform the activity before the current illness, exacerbation or injury. 10-Not Attempted due to Environmental Limitations-(lack of equipment, weather restraints, etc.). 88-Not Attempted due to Medical Conditions or Safety Concerns. Eating (QC): 6 Oral Hygiene (QC): 6 Shower/Bathe Self (QC): 6 Upper Body Dressing (QC): 6 Lower Body Dressing (QC): 6 On/Off Footwear: 6 Toileting Hygiene (QC): 6 Toilet Transfer (QC): 6 BIMS CAM BIMS Expression of Ideas and Wants: Without Difficulty Understanding Verbal Content: Understands Brief Interview/Mental Status: Yes IRF GALLITO BIMS: IRF GALLITO BIMS Response (Comments) Value Repitition of Three Words Three 3 Recalls Socks Yes, No Cue Required 2 Recalls Blue Yes, No Cue Required 2 Recalls Bed Yes, No Cue Required 2 Year Correct 3 Month Accurate Within 5 Days 2 Day Correct 1 Total 15 OT Short Term Goals Short Term Goals Time Frame: Jun 14, 2022 Eatin Oral hygiene: 5 Toileting hygiene: 4 Shower/bathe self: 4 Upper body dressin Lower body dressin (With AE) Putting on/taking off footwear: 4 (With AE) OT Combination Operator Goals Half-Way Goals Time Frame: Jun 21, 2022 Acute change in mental status: 0 Inattention: 0 Disorganized thinkin Altered level of consciousness: 0 Eating (QC): 6 (met) Oral Hygiene (QC): 6 (met) Toileting Hygiene (QC): 6 (met) Shower/Bathe Self (QC): 5 (met) Upper Body Dressing (QC): 6 (met) Lower Body Dressing (QC): 6 (With AE-met) On/Off Footwear (QC): 6 (With AE-met) Additional Goals: 1-Demonstrate ADL Tasks, 2-Verbalize Understanding, 3- ImproveStrength/Robel 1=Demonstrate adherence to instructed precautions during ADL tasks. 2=Patient will verbalize/demonstrate understanding of assistive devices/modifications for ADL. 3=Patient will improve strength/tolerance for activity to enable patient to perform ADL's. OT Education/Plan Problem List/Assessment Assessment: Impaired Self-Care Skills Discharge Recommendations Plan/Recommendations: Continue POC Treatment Plan/Plan of Care Patient would benefit from OT for education, treatment and training to promote independence in ADL's, mobility, safety and/or upper extremity function for ADL's. Plan of Care: ADL Retraining, Functional Mobility, UE Funct Exercise/Act Treatment Duration: Jun 21, 2022 Frequency: At least 5 of 7 days/Wk (IRF) Estimated Hrs Per Day: 1.5 hours per day Agreement: Yes Rehab Potential: Good Time Start Time: 07:30 Stop Time: 09:00 DATE: Jun 14, 2022 Total Time Billed (hr/min): 90 Billed Treatment Time 1 visit-ADL 6 (90 min) KELLY PUTNAM Jun 14, 2022 07:40
[2022-06-14] MEDS: APIXABAN 2.5 MG (ELIQUIS) TABLET PO SCH ×2 (08:17→20:52)
[2022-06-14] MEDS: DOCUSATE SODIUM 100 MG (COLACE) CAP PO SCH ×2 (08:17→20:53)
[2022-06-14] MEDS: NICOTINE 21 MG (NICODERM) PATCH TD SCH (08:17)
[2022-06-14] MEDS: SENNA W/DOCUSATE (SENOKOT S) TABLET PO SCH ×2 (08:18→20:52)
[2022-06-14] MEDS: polyethylene glycoL POWDER 17 GM (MIRALAX) PACK PO SCH ×2 (08:18→20:53)
[2022-06-14] MEDS: NICOTINE PATCH REMOVAL TP SCH (08:18)
--- NOTE | 2022-06-14 11:06 | Physical Therapy Daily Note ---
PT Daily Note-Current Subjective Pt. agrees to Rx, feeling much better since last seen by this AREA COUNSELOR. Pt not having so many issues with spasms in LLE, but pain in ribs is an issue if pt lays flat for ex etc. Has plans to DC Sunday and feels confident about her success Pain Location: No Pain Reported Section J - Health Conditions 1. Rarely or not at all 2. Occasionally 3. Frequently 4. Almost constantly 8. Unable to answer Pain Effect on Sleep: 1 Pain Interference with Therapy: 1 Pain Interference w/Day-to-Day: 1 Mental Status Patient Orientation: Normal For Age Attachments: Other-See Comments (right knee immoblizer) Transfers SCALE: Activities may be completed with or without assistive devices. 0-Twaytzqfgk-sfocjqk completes the activity by him/herself with no assistance from a helper. 5-Set-up or Clean-up Assistance-helper sets up or cleans up; patient completes activity. [place] assists only prior to or following the activity. 4-Supervision or Touching Assistance-helper provides verbal cues and/or touching/steadying and/or contact guard assistance as patient completes activity. Assistance may be provided throughout the activity or intermittently. 3-Partial/Moderate Assistance-helper does LESS THAN HALF the effort. [place] lifts, holds or supports trunk or limbs, but provides less than half the effort. 2-Substantial/Maximal Assistance-helper does MORE THAN HALF the effort. [place] lifts or holds trunk or limbs and provides more than half the effort. 4-Njlwgowun-kbupat does ALL the effort. Patient does none of the effort to complete the activity. Or, the assistance of 2 or more helpers is required for the patient to complete the activity. If activity was not attempted, code reason: 7-Patient Refused. 9-Not Applicable-not attempted and the patient did not perform the activity before the current illness, exacerbation or injury. 10-Not Attempted due to Environmental Limitations-(lack of equipment, weather restraints, etc.). 88-Not Attempted due to Medical Conditions or Safety Concerns. Roll Left & Right (QC): 6 Sit to Lying (QC): 6 Lying to Sitting/Side of Bed(Q: 6 Sit to Stand (QC): 6 Chair/Mam-of-Ccdzg Xfer(QC): 6 Toilet Transfer (QC): 6 pt. demonstrated SPTs, toilet TRF, bed mob etc all with SBA and use of leg agriscience teacher Weight Bearing Right Lower Extremity: Right Weight Bearing/Tolerated Left Lower Extremity: Left Touch Toe Bearing Right knee immobilizer to be donned during OOB activity Gait Training Does the Patient Walk?: Yes Walk 10 feet (QC): 4 Gait Persons Needed: 1 Gait Assistive Device: FWW pt. carefully ambulated 25 ft x 2 slow, maintaining wt bearing precautions, shoe was donned on right foot to help with TTWBing maintainence for LLE Wheelchair Training Does the Pt Use a Wheelchair?: Yes Wheel 50 ft with 2 turns (QC): 6 Wheel 150 ft (QC): 6 Type of Wheelchair: Manual indep in backing braking and managing swing out leg rests indep, manages in tight spaces indep Exercises pt. does all ex in long siting as she has increased rib pain in supine, ankle pumps, Quad sets, SLR on right, ab and ad bilat with leg agriscience teacher used to assist on L. all x 15 to 20 reps Treatments w/c mob, gait, therex, toileting, TRFs Assessment Current Status: Good Progress meeting goals PT Short Term Goals Short Term Goals Time Frame: Jun 13, 2022 Roll Left & Right: 4 Sit to lyin Lying to sitting on side of be: 4 Sit to stand: 3 Chair/emu-nq-ckxib transfer: 3 Toilet transfer: 3 Car transfer: 3 Does pt use a wc or scooter: Yes Wheel 50ft w/2 turns: 6 Wheel 150 feet: 6 Type: Manual PT Hot Braider Goals Group Home Goals PT Group Home Goals Time Frame: Jul 01, 2022 Roll Left & Right (QC): 6 Sit to Lying (QC): 6 Lying-Sitting on Side/Bed(QC): 6 Sit to Stand (QC): 6 Chair/Uex-sq-Cmwxz Xfer(QC): 6 Toilet Transfer (QC): 6 Car Transfer (QC): 6 Does the Patient Walk: No and Walking Goal IS indicated Walk 10 feet (QC): 2 Walk 50ft with 2 Turns (QC): 2 Walk 150 ft (QC): 88 Walking 10ft on Uneven Surface: 2 1 Step (curb) (QC): 88 4 Steps (QC): 88 12 Steps (QC): 88 Picking up an Object (QC): 3 Does the Pt use WC or Scooter?: Yes Wheel 50 feet with 2 turns (QC: 6 Type: Manual Wheel 150 feet: 6 Type: Manual PT Plan Treatment/Plan Treatment Plan: Continue Plan of Care Treatment Plan: Bed Mobility, Education, Functional Activity Robel, Functional Strength, Group Therapy, Gait, Safety, Therapeutic Exercise, Transfers Treatment Duration: Jul 15, 2022 Frequency: At least 5 of 7 days/Wk (IRF) Estimated Hrs Per Day: 1.5 hours per day Patient and/or Family Agrees t: Yes Safety Risks/Education Patient Education: Gait Training, Transfer Techniques, Reviewed Precautions, Correct Positioning, W/C Management, Reviewed Don/Doff Brace (adjusts brace insep, did not ddoff), Disease Process, Safety Issues Teaching Recipient: Patient Teaching Methods: Demonstration, Discussion Response to Teaching: Verbalize Understanding, Return Demonstration, Reinforcement Needed Time Time In: 930 Time Out: 1100 DATE: Jun 14, 2022 Total Billed Treatment Time: 90 Total Billed Treatment 1,w/c 25m,EX35m,[id number] MINA HANCOCK AREA COUNSELOR Jun 14, 2022 11:06
[2022-06-14 20:43] VITALS: BP 109/68
[2022-06-14] MEDS: ALPRAZolam 0.25 MG (XANAX) TAB PO PRN (20:52)
[2022-06-14] MEDS: diphenhydrAMINE 25 MG TAB (BENADRYL) PO PRN (20:52)
[2022-06-14] MEDS: ETODOLAC 300 MG (LODINE) CAP PO PRN (20:52)
[2022-06-15] MEDS: CYCLOBENZAPRINE 10 MG (FLEXERIL) TAB PO PRN ×3 (00:40→13:25)
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
[2022-06-15] MEDS: LEVOTHYROXINE 150 MCG (LEVOTHROID) TAB PO SCH (06:42)
[2022-06-15 07:50] VITALS: BP 119/82
[2022-06-15] MEDS: APIXABAN 2.5 MG (ELIQUIS) TABLET PO SCH ×2 (08:11→20:44)
[2022-06-15] MEDS: SENNA W/DOCUSATE (SENOKOT S) TABLET PO SCH ×2 (08:12→20:44)
[2022-06-15] MEDS: DOCUSATE SODIUM 100 MG (COLACE) CAP PO SCH ×2 (08:12→20:43)
[2022-06-15] MEDS: NICOTINE 21 MG (NICODERM) PATCH TD SCH (08:12)
[2022-06-15] MEDS: polyethylene glycoL POWDER 17 GM (MIRALAX) PACK PO SCH ×2 (08:13→20:46)
[2022-06-15] MEDS: NICOTINE PATCH REMOVAL TP SCH (08:14)
--- NOTE | 2022-06-15 09:28 | Occupational Ther Daily Note ---
OT Current Status-Daily Note Subjective Pt alert, sitting up in bed. Pt agrees to therapy. No c/o pain at this time. Pt to discharge to home with s.o. 06/16/22. Mental Status/Objective Patient Orientation: Person, Place, Time, Situation Attachments: Knee Immobilizer ADL-Treatment Pt completes all ADLs from w/c level. Pt is able to stand from w/c using FWW to complete hiking pants over hips and toileting independently. Independent with upper body dressing. Independently for lower body dressing. Independent for footwear. Independent sitting at sink for oral care. Independent for toileting. Therapy Code Descriptions/Definitions Functional [place] Measure: 0=Not Assessed/NA 4=Minimal Assistance 1=Total Assistance 5=Supervision or Setup 2=Maximal Assistance 6=Modified [place] 3=Moderate Assistance 7=Complete IndependenceSCALE: Activities may be completed with or without assistive devices. 8-Wrngizqgrm-xohafmp completes the activity by him/herself with no assistance from a helper. 5-Set-up or Clean-up Assistance-helper sets up or cleans up; patient completes activity. [place] assists only prior to or following the activity. 4-Supervision or Touching Assistance-helper provides verbal cues and/or touching/steadying and/or contact guard assistance as patient completes activity. Assistance may be provided throughout the activity or intermittently. 3-Partial/Moderate Assistance-helper does LESS THAN HALF the effort. [place] lifts, holds or supports trunk or limbs, but provides less than half the effort. 2-Substantial/Maximal Assistance-helper does MORE THAN HALF the effort. [place] lifts or holds trunk or limbs and provides more than half the effort. 5-Wxqabbmbe-xikqig does ALL the effort. Patient does none of the effort to complete the activity. Or, the assistance of 2 or more helpers is required for the patient to complete the activity. If activity was not attempted, code reason: 7-Patient Refused. 9-Not Applicable-not attempted and the patient did not perform the activity before the current illness, exacerbation or injury. 10-Not Attempted due to Environmental Limitations-(lack of equipment, weather restraints, etc.). 88-Not Attempted due to Medical Conditions or Safety Concerns. Upper Body Dressing (QC): 6 Lower Body Dressing (QC): 6 On/Off Footwear: 6 Toileting Hygiene (QC): 6 Toilet Transfer (QC): 6 Other Treatment Complete 1 set 10 reps of 6 medium resistance theraband exercises. Skilled instruction required for correct technique and modifications when needed. After therapy, pt sitting in w/c with call light/phone in reach. All needs met in room. OT Short Term Goals Short Term Goals Time Frame: Jun 14, 2022 Eatin Oral hygiene: 5 Toileting hygiene: 4 Shower/bathe self: 4 Upper body dressin Lower body dressin (With AE) Putting on/taking off footwear: 4 (With AE) OT [facility] Goals Assembler Skylights Goals Time Frame: Jun 21, 2022 Acute change in mental status: 0 Inattention: 0 Disorganized thinkin Altered level of consciousness: 0 Eating (QC): 6 (met) Oral Hygiene (QC): 6 (met) Toileting Hygiene (QC): 6 (met) Shower/Bathe Self (QC): 5 (met) Upper Body Dressing (QC): 6 (met) Lower Body Dressing (QC): 6 (With AE-met) On/Off Footwear (QC): 6 (With AE-met) Additional Goals: 1-Demonstrate ADL Tasks, 2-Verbalize Understanding, 3- ImproveStrength/Robel 1=Demonstrate adherence to instructed precautions during ADL tasks. 2=Patient will verbalize/demonstrate understanding of assistive devices/modifications for ADL. 3=Patient will improve strength/tolerance for activity to enable patient to perform ADL's. OT Education/Plan Problem List/Assessment Assessment: Impaired Self-Care Skills Discharge Recommendations Plan/Recommendations: Continue POC Treatment Plan/Plan of Care Patient would benefit from OT for education, treatment and training to promote independence in ADL's, mobility, safety and/or upper extremity function for ADL's. Plan of Care: ADL Retraining, Functional Mobility, UE Funct Exercise/Act Treatment Duration: Jun 21, 2022 Frequency: At least 5 of 7 days/Wk (IRF) Estimated Hrs Per Day: 1.5 hours per day Agreement: Yes Rehab Potential: Good Time Start Time: 09:00 Stop Time: 10:00 DATE: Jun 15, 2022 Total Time Billed (hr/min): 60 Billed Treatment Time 1 visit-ADL 3 (50 min) EX 1 (10 min) KELLY PUTNAM Jun 15, 2022 09:28
[2022-06-15 09:49] VITALS: BP 119/82
--- NOTE | 2022-06-15 10:55 | Physical Therapy Daily Note ---
PT Daily Note-Current Subjective No c/o pain, feels better and very confident about discharging to home. Pain Location: No Pain Reported Section J - Health Conditions 1. Rarely or not at all 2. Occasionally 3. Frequently 4. Almost constantly 8. Unable to answer Pain Effect on Sleep: 1 Pain Interference with Therapy: 1 Pain Interference w/Day-to-Day: 1 Mental Status Patient Orientation: Normal For Age Attachments: Other-See Comments (right knee immoblizer) Transfers SCALE: Activities may be completed with or without assistive devices. 8-Rqynsinczk-vukfqut completes the activity by him/herself with no assistance from a helper. 5-Set-up or Clean-up Assistance-helper sets up or cleans up; patient completes activity. [place] assists only prior to or following the activity. 4-Supervision or Touching Assistance-helper provides verbal cues and/or touching/steadying and/or contact guard assistance as patient completes activity. Assistance may be provided throughout the activity or intermittently. 3-Partial/Moderate Assistance-helper does LESS THAN HALF the effort. [place] lifts, holds or supports trunk or limbs, but provides less than half the effort. 2-Substantial/Maximal Assistance-helper does MORE THAN HALF the effort. [place] lifts or holds trunk or limbs and provides more than half the effort. 6-Cmlrujoyi-dlkckh does ALL the effort. Patient does none of the effort to complete the activity. Or, the assistance of 2 or more helpers is required for the patient to complete the activity. If activity was not attempted, code reason: 7-Patient Refused. 9-Not Applicable-not attempted and the patient did not perform the activity before the current illness, exacerbation or injury. 10-Not Attempted due to Environmental Limitations-(lack of equipment, weather restraints, etc.). 88-Not Attempted due to Medical Conditions or Safety Concerns. Roll Left & Right (QC): 6 Sit to Lying (QC): 6 Lying to Sitting/Side of Bed(Q: 6 Sit to Stand (QC): 6 Chair/Kbz-ua-Kfdna Xfer(QC): 6 Toilet Transfer (QC): 6 Car Transfer (QC): 6 pt. utilizes leg manager quality compliance for TRFs Weight Bearing Right Lower Extremity: Right Weight Bearing/Tolerated Left Lower Extremity: Left Touch Toe Bearing Right knee immobilizer to be donned during OOB activity Gait Training Does the Patient Walk?: Yes Walk 10 feet (QC): 6 Walking 10ft/uneven surface-QC: 4 Gait Persons Needed: 1 Gait Assistive Device: FWW pt. ambulated 30 ft, 20 ft x 2 FWW with c/o increasing pain in ribs at about the 30 ft scarlett and declined to walk further. heavy wt bearing through UEs onto FWW likely the cause of rib pain Wheelchair Training Does the Pt Use a Wheelchair?: Yes Wheel 50 ft with 2 turns (QC): 6 Wheel 150 ft (QC): 6 Type of Wheelchair: Manual indep with brakes, indep to take leg rests off and on and indep for all even and graded surfaces , manages well in tight spaces and demonstrates good safe technique consistently Stair Training #of Steps: 0 1 Step (curb) (QC): 88 4 Steps (QC): 88 12 Steps (QC): 88 pt. in long leg immoblizer on right preventing knee flexion and has TTWBing precautions on L , therefore ascending and descending stairs is not possible or safe Balance Picking up an Object (QC): 6 Treatments QCs, TRFs, gait, w/c mob, Assessment Current Status: Good Progress meets goals PT Short Term Goals Short Term Goals Time Frame: Jun 13, 2022 Roll Left & Right: 4 Sit to lyin Lying to sitting on side of be: 4 Sit to stand: 3 Chair/ytq-jw-ybpsq transfer: 3 Toilet transfer: 3 Car transfer: 3 Does pt use a wc or scooter: Yes Wheel 50ft w/2 turns: 6 Wheel 150 feet: 6 Type: Manual PT Care Home Goals Care Home Goals PT Petrology Teacher Goals Time Frame: Jul 01, 2022 Roll Left & Right (QC): 6 Sit to Lying (QC): 6 Lying-Sitting on Side/Bed(QC): 6 Sit to Stand (QC): 6 Chair/Zcu-ig-Fbvmz Xfer(QC): 6 Toilet Transfer (QC): 6 Car Transfer (QC): 6 Does the Patient Walk: No and Walking Goal IS indicated Walk 10 feet (QC): 2 Walk 50ft with 2 Turns (QC): 2 Walk 150 ft (QC): 88 Walking 10ft on Uneven Surface: 2 1 Step (curb) (QC): 88 4 Steps (QC): 88 12 Steps (QC): 88 Picking up an Object (QC): 3 Does the Pt use WC or Scooter?: Yes Wheel 50 feet with 2 turns (QC: 6 Type: Manual Wheel 150 feet: 6 Type: Manual PT Plan Treatment/Plan Treatment Plan: Continue Plan of Care Treatment Plan: Bed Mobility, Education, Functional Activity Rboel, Functional Strength, Group Therapy, Gait, Safety, Therapeutic Exercise, Transfers Treatment Duration: Jul 15, 2022 Frequency: At least 5 of 7 days/Wk (IRF) Estimated Hrs Per Day: 1.5 hours per day Patient and/or Family Agrees t: Yes Safety Risks/Education Patient Education: Gait Training, Transfer Techniques, Reviewed Precautions, Correct Positioning, W/C Management, Disease Process, Safety Issues Teaching Recipient: Patient Teaching Methods: Demonstration, Discussion Response to Teaching: Verbalize Understanding, Return Demonstration, [place] nforcement Needed Time Time In: 1000 Time Out: 1100 DATE: Jun 15, 2022 Total Billed Treatment Time: 60 Total Billed Treatment 1,GT20m,FA30m,WC10m MINA HANCOCK BIOMEDICAL EQUIPMENT SUPPORT SPECIALIST Jun 15, 2022 10:55
[2022-06-15] MEDS: ACETAMINOPHEN 325 MG TABLET PO PRN ×2 (11:19→17:56)
[2022-06-15] MEDS: ETODOLAC 300 MG (LODINE) CAP PO PRN ×2 (11:22→20:44)
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
--- NOTE | 2022-06-15 14:08 | Occupational Ther Daily Note ---
OT Current Status-Daily Note Subjective Pt alert, sitting in w/c. Pt agrees to therapy. present in room. Mental Status/Objective Patient Orientation: Person, Place, Time, Situation Attachments: Knee Immobilizer ADL-Treatment Therapy Code Descriptions/Definitions Functional [place] Measure: 0=Not Assessed/NA 4=Minimal Assistance 1=Total Assistance 5=Supervision or Setup 2=Maximal Assistance 6=Modified [place] 3=Moderate Assistance 7=Complete IndependenceSCALE: Activities may be completed with or without assistive devices. 7-Umywxqfxee-wcmbjxy completes the activity by him/herself with no assistance from a helper. 5-Set-up or Clean-up Assistance-helper sets up or cleans up; patient completes activity. [place] assists only prior to or following the activity. 4-Supervision or Touching Assistance-helper provides verbal cues and/or touching/steadying and/or contact guard assistance as patient completes activity. Assistance may be provided throughout the activity or intermittently. 3-Partial/Moderate Assistance-helper does LESS THAN HALF the effort. [place] lifts, holds or supports trunk or limbs, but provides less than half the effort. 2-Substantial/Maximal Assistance-helper does MORE THAN HALF the effort. [place] lifts or holds trunk or limbs and provides more than half the effort. 5-Uucdixxdw-zysxtt does ALL the effort. Patient does none of the effort to complete the activity. Or, the assistance of 2 or more helpers is required for the patient to complete the activity. If activity was not attempted, code reason: 7-Patient Refused. 9-Not Applicable-not attempted and the patient did not perform the activity before the current illness, exacerbation or injury. 10-Not Attempted due to Environmental Limitations-(lack of equipment, weather restraints, etc.). 88-Not Attempted due to Medical Conditions or Safety Concerns. Pt propelled w/c to/from therapy gym independently. Pt completed B UE exercises with wts/resistance 3 sets 10 reps of all exercises. Pt tolerated well. After therapy, pt sitting in w/c with call light/phone in reach in room. All needs met. OT Short Term Goals Short Term Goals Time Frame: Jun 14, 2022 Eatin Oral hygiene: 5 Toileting hygiene: 4 Shower/bathe self: 4 Upper body dressin Lower body dressin (With AE) Putting on/taking off footwear: 4 (With AE) OT [facility] Goals [facility] Goals Time Frame: Jun 21, 2022 Acute change in mental status: 0 Inattention: 0 Disorganized thinkin Altered level of consciousness: 0 Eating (QC): 6 (met) Oral Hygiene (QC): 6 (met) Toileting Hygiene (QC): 6 (met) Shower/Bathe Self (QC): 5 (met) Upper Body Dressing (QC): 6 (met) Lower Body Dressing (QC): 6 (With AE-met) On/Off Footwear (QC): 6 (With AE-met) Additional Goals: 1-Demonstrate ADL Tasks, 2-Verbalize Understanding, 3- ImproveStrength/Robel 1=Demonstrate adherence to instructed precautions during ADL tasks. 2=Patient will verbalize/demonstrate understanding of assistive devices/modifications for ADL. 3=Patient will improve strength/tolerance for activity to enable patient to perform ADL's. OT Education/Plan Problem List/Assessment Assessment: Decreased UE Strength Discharge Recommendations Plan/Recommendations: Continue POC Treatment Plan/Plan of Care Patient would benefit from OT for education, treatment and training to promote independence in ADL's, mobility, safety and/or upper extremity function for ADL's. Plan of Care: ADL Retraining, Functional Mobility, UE Funct Exercise/Act Treatment Duration: Jun 21, 2022 Frequency: At least 5 of 7 days/Wk (IRF) Estimated Hrs Per Day: 1.5 hours per day Agreement: Yes Rehab Potential: Good Time Start Time: 13:30 Stop Time: 14:00 DATE: Jun 15, 2022 Total Time Billed (hr/min): 30 Billed Treatment Time 1 visit-EX 2 (30 min) KELLY PUTNAM Jun 15, 2022 14:08
[2022-06-15] MEDS: ALPRAZolam 0.25 MG (XANAX) TAB PO PRN (17:56)
[2022-06-15 20:35] VITALS: BP 122/75
[2022-06-15] MEDS: diphenhydrAMINE 25 MG TAB (BENADRYL) PO PRN (20:44)
[2022-06-16] MEDS: CYCLOBENZAPRINE 10 MG (FLEXERIL) TAB PO PRN ×2 (01:42→08:15)
[2022-06-16] MEDS ORDERED: ALPR.25T PO (05:22)
[2022-06-16] MEDS ORDERED: NICO1PAT34 TD (05:22)
[2022-06-16] MEDS ORDERED: SENN1TAB76 PO (05:22)
[2022-06-16] MEDS ORDERED: DOCU100C37 PO (05:22)
[2022-06-16] MEDS ORDERED: ASPI-1238 PO (05:22)
[2022-06-16] MEDS ORDERED: ACHD5005 PO (05:22)
[2022-06-16] MEDS ORDERED: LEVO150T PO (05:22)
[2022-06-16] MEDS ORDERED: TRAM50TA3 PO (05:22)
[2022-06-16] MEDS ORDERED: DICL75TA2 PO (05:22)
[2022-06-16] MEDS ORDERED: ONDA4TAB11 PO (05:22)
[2022-06-16] MEDS ORDERED: CYCL10TA25 PO (05:22)
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
--- NOTE | 2022-06-16 05:24 | D/C HH Face to Face Order ---
D/C HH Face to Face Orders Reconcile Patient Problems Problems Reviewed?: Yes Instructions for Patient HH Patient Instructions/FollowUp: pcp 1 week Physician to follow Patient: pcp Discharge Diet for Home: No Restrictions Patient Problems: hip fx Patient Data-Allergies,Ht & Wt Patient Allergies: Coded Allergies: Milk Containing Products (Verified Allergy, Severe, Anaphylaxis, 06/07/22) cefazolin (Verified Allergy, Intermediate, Hives, 06/09/22) shellfish derived (Verified Allergy, Unknown, 06/06/22) Home Health Need/Face to Face Date of Face to Face: Jun 16, 2022 Clinical Findings: Generalized weakness and fatigue, Instability, Muscle weakness I have seen Pt [id number]: Yes Discharged To: Home Diagnosis/Conditions: hip fx Patient is Homebound due to: Fatmata fall risk due to instabilty, Muscle weakness Homebound Status Due to the above stated illness, injury or surgical procedure (medical condition or diagnosis) and associated clinical findings, the patient is homebound because of his/her inability to leave home except with aid of a supportive device and/or person AND leaving the home requires a considerable and taxing effort or is medically contraindicated. Pt req the following assistanc: Walker Home Health Nursing Orders Home Health Services Order: Nursing Services, Agency Cashier-Evaluate & Treat, Physical Therapy-Evaluate & Treat Certify Stmt I certify that this patient is under my care and that I, a nurse practitioner or a physician; a emergency room physician assistant working with me, had a face to face encounter that - meets the physician face to face encounter requirements with this patient as dated. EVERARDO TONY DO Jun 16, 2022 05:24
[2022-06-16] MEDS: LEVOTHYROXINE 150 MCG (LEVOTHROID) TAB PO SCH (06:28)
[2022-06-16 07:29] VITALS: BP 112/76
[2022-06-16] MEDS: APIXABAN 2.5 MG (ELIQUIS) TABLET PO SCH (08:14)
[2022-06-16] MEDS: SENNA W/DOCUSATE (SENOKOT S) TABLET PO SCH (08:14)
[2022-06-16] MEDS: NICOTINE 21 MG (NICODERM) PATCH TD SCH (08:15)
[2022-06-16] MEDS: DOCUSATE SODIUM 100 MG (COLACE) CAP PO SCH (08:15)
[2022-06-16] MEDS: NICOTINE PATCH REMOVAL TP SCH (08:15)
[2022-06-16] MEDS: polyethylene glycoL POWDER 17 GM (MIRALAX) PACK PO SCH (08:30)
[2022-06-16] MEDS: ALPRAZolam 0.25 MG (XANAX) TAB PO PRN (10:57)
[2022-06-16] MEDS: ETODOLAC 300 MG (LODINE) CAP PO PRN (10:58)
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
== END 2022-06-16 11:10 | disposition home health service (06) | DRG 561 ==
PROVIDERS: ADMIT Internal Medicine; ATTEND Internal Medicine
DX: S72.302D Unspecified fracture of shaft of left femur, subsequent encounter for closed fracture with routine healing (principal); S22.43XD Multiple fractures of ribs, bilateral, subsequent encounter for fracture with routine healing; S76.111D Strain of right quadriceps muscle, fascia and tendon, subsequent encounter; E55.9 Vitamin D deficiency, unspecified; E03.9 Hypothyroidism, unspecified; F17.200 Nicotine dependence, unspecified, uncomplicated; F41.9 Anxiety disorder, unspecified; E66.9 Obesity, unspecified; K59.09 Other constipation; Z68.30 Body mass index [BMI] 30.0-30.9, adult; Z79.01 Long term (current) use of anticoagulants; Z79.899 Other long term (current) drug therapy; Z88.6 Allergy status to analgesic agent; Z88.5 Allergy status to narcotic agent; V89.2XXD Person injured in unspecified motor-vehicle accident, traffic, subsequent encounter
CPT/HCPCS: 36415; 80053; 84443; 85025